=== PATIENT | male | born 1970 | race Caucasian/White ===

== ENCOUNTER 2017-04-26 03:39 | Emergency (ER) | payer MEDICAID, SELFPAY ==
[2017-04-26 03:40] VITALS: BP 135/88; PULSE 124; RESP 15; TEMP 36.2; O2SAT 95; BMI 29.9
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
[2017-04-26] MEDS: 0.9% Normal Saline 1,000 ML 1000 ML IV (04:14)
[2017-04-26] MEDS: Ketorolac 30 MG/ML Syringe IV (04:15)
[2017-04-26 04:35] LABS: Bacteria 0 SEEN /hpf (None Seen); Mucous, Urine 0 SEEN /hpf (<or=2+); White Blood Cells 0 SEEN /hpf (0-5)
[2017-04-26 04:39] LABS: Color, Urine Yellow (Yellow); Glucose, Dipstick Normal (Normal); Ketone-Dipstick Negative (Negative); Leukocyte Esterase-Dipstick Negative /ul (Negative); Nitrite-Dipstick Negative (Negative); Occult Blood-Urine 10 /ul (Negative); Protein-Dipstick Negative (Negative); Specific Gravity, Urine 1.015 (1.002-1.030); Urine Bilirubin Dipstick Negative (Negative); Urine Clarity Clear (Clear); Urine Urobilinogen Normal (Normal)
[2017-04-26 04:54] LABS: Red Blood Cells-Urine 0-5 SEEN /hpf (0-5); Squamous Epithelial Cells - UA 0-5 SEEN /hpf (0-5)
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
[2017-04-26 05:27] VITALS: BP 117/67; PULSE 57; RESP 16; O2SAT 98
== END 2017-04-26 05:29 | disposition home or self-care (01) ==
PROVIDERS: Emergency Provider Emergency Medicine; Family Provider Family Medicine; PCP Family Medicine
DX: S39.012A Strain of muscle, fascia and tendon of lower back, initial encounter (principal); M54.2 Cervicalgia; W13.2XXA Fall from, out of or through roof, initial encounter; Y93.89 Activity, other specified; Y92.9 Unspecified place or not applicable; Y99.9 Unspecified external cause status; J45.909 Unspecified asthma, uncomplicated; F32.9 Major depressive disorder, single episode, unspecified; F41.9 Anxiety disorder, unspecified; Z72.0 Tobacco use; Z79.899 Other long term (current) drug therapy; Z86.19 Personal history of other infectious and parasitic diseases
CPT/HCPCS: 74176; 81001; 96361; 96374; 99284; J7030; Q9967

== ENCOUNTER 2017-06-17 21:21 | Emergency (ER) | payer MEDICAID, SELFPAY ==
[2017-06-17 21:22] VITALS: BP 138/71; PULSE 129; RESP 14; TEMP 36.8; O2SAT 98; BMI 29.9
--- NOTE | 2017-06-17 21:27 | RAD_ITS ---
STUDY: X-RAY - RIGHT HAND REASON FOR EXAM: Male, 47 years old. Pain, swelling TECHNIQUE: 3 view(s) of the hand. COMPARISON: X-ray 04/01/2017 FINDINGS: There is nondisplaced fracture at the proximal aspect of the fifth metacarpal. There is slight volar angulation. Suggestion of chronic fracture deformity at the fifth metacarpal neck. There is resection of the scaphoid. Normal radiocarpal articulation. Normal distal radioulnar joint. Normal metacarpophalangeal joint of the thumb. Normal interphalangeal joint of the thumb. Normal proximal and distal phalanges of the thumb. Normal metacarpophalangeal joints of the second through fifth fingers. Normal proximal and distal interphalangeal joints of the second through fifth fingers. Normal phalanges of the second through fifth fingers. The soft tissue structures are unremarkable. RAD/Hand Min 3 Views IMPRESSION: Acute nondisplaced fracture at the proximal aspect of the fifth metacarpal with slight volar angulation Electronically Signed: Avinash Horner MD at 22:10 EDT Tel , Service support ,
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
[2017-06-17] MEDS: HYDROcodone Bitartrate/Apap 5/325 Tablet PO ×2 (22:34)
[2017-06-17 22:36] VITALS: PULSE 87; RESP 18; O2SAT 97
== END 2017-06-17 23:01 | disposition home or self-care (01) ==
PROVIDERS: Emergency Provider Emergency Medicine; Family Provider Family Medicine; PCP Family Medicine
DX: S62.396A Other fracture of fifth metacarpal bone, right hand, initial encounter for closed fracture (principal); W22.09XA Striking against other stationary object, initial encounter; Y93.89 Activity, other specified; Y92.9 Unspecified place or not applicable; J44.9 Chronic obstructive pulmonary disease, unspecified; K21.9 Gastro-esophageal reflux disease without esophagitis; Z86.19 Personal history of other infectious and parasitic diseases; Z79.899 Other long term (current) drug therapy; F41.9 Anxiety disorder, unspecified; F32.9 Major depressive disorder, single episode, unspecified; Z72.0 Tobacco use
CPT/HCPCS: 29130; 73130; 99283

== ENCOUNTER 2017-06-21 12:02 | Emergency (ER) | payer MEDICAID, SELFPAY ==
[2017-06-21 12:04] VITALS: BP 156/54; PULSE 115; RESP 18; TEMP 36.2; O2SAT 94; BMI 29.9
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
[2017-06-21] MEDS: Naproxen 250 MG Tablet 500 MG PO (12:37)
== END 2017-06-21 12:40 | disposition home or self-care (01) ==
LOC: ED 12:36
PROVIDERS: Emergency Provider Emergency Medicine; Family Provider Family Medicine; PCP Family Medicine
DX: S62.306A Unspecified fracture of fifth metacarpal bone, right hand, initial encounter for closed fracture (principal); Y04.2XXA Assault by strike against or bumped into by another person, initial encounter; Y93.9 Activity, unspecified; Y92.9 Unspecified place or not applicable; Y99.9 Unspecified external cause status; Z72.0 Tobacco use; Z79.899 Other long term (current) drug therapy; Z91.19 Patient's noncompliance with other medical treatment and regimen
CPT/HCPCS: 99283

== ENCOUNTER 2017-07-08 21:01 | Emergency (ER) | payer MEDICAID, SELFPAY ==
[2017-07-08 21:02] VITALS: BP 135/62; PULSE 100; RESP 14; TEMP 36.5; O2SAT 100; BMI 29.0
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
[2017-07-08] MEDS: HYDROcodone Bitartrate/Apap 5/325 Tablet PO (22:29)
--- NOTE | 2017-07-08 23:12 | ED.DEP ---
ED Disposition - Plan for ED Patient: Chief Complaint: Back Instructions: ED Contusion Back Referrals: Hayes Deluna MD [Primary Care Provider] -
== END 2017-07-08 23:19 | disposition home or self-care (01) ==
PROVIDERS: Emergency Provider Emergency Medicine; Family Provider Family Medicine; PCP Family Medicine
DX: M54.9 Dorsalgia, unspecified (principal); J44.9 Chronic obstructive pulmonary disease, unspecified; Z72.0 Tobacco use; Z87.820 Personal history of traumatic brain injury
CPT/HCPCS: 71101; 99284

== ENCOUNTER 2017-08-04 11:14 | Emergency (ER) | payer MEDICAID, SELFPAY ==
[2017-08-04 11:15] VITALS: BP 149/107; PULSE 61; RESP 14; TEMP 35.8; O2SAT 97; BMI 26.6
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
[2017-08-04 11:56] LABS: Absolute Lymphocyte Count 1.19 X10^3/ul (0.83-4.51); Absolute Neutrophil Count 5.4 X10^3/uL (2.0-7.7); Basophil# 0.02 X10^3/uL; Basophil% 0.3 % (0-1); Eosinophil# 0.13 X10^3/uL; Eosinophils% 1.8 % (0-5); Hematocrit 45.3 % (40-54); Hemoglobin 14.8 g/dl (13.0-16.5); Lymphocyte # 1.19 X10^3/ul (4.0); Lymphocyte % 16.2 % (19-41); Mean Corp Hgb Conc 32.7 g/gl (32-36); Mean Corpuscular Hgb 31.5 pg (27.0-32.0); Mean Corpuscular Volume 96.4 fL (80-94); Mean Platelet Vol. 9.6 fl (6.2-12.0); Monocyte# 0.57 X10^3/uL; Monocyte% 7.8 % (0-10); Neutrophil # 5.42 X10^3/uL (2.7-7.7); Neutrophil % 73.6 % (47-70); Platelet Count 224 K/mm3 (150-450); RBC Distribution Width SD 45.9 fl (35.1-43.9); White Blood Count 7.4 K/mm3 (4.4-11.0)
[2017-08-04 12:01] LABS: POSITIVE COUNT NO; POSITIVE DIFFERENTIAL NO; POSITIVE MORPHOLOGY NO
[2017-08-04] MEDS: 0.9% Normal Saline 1,000 ML 1000 ML IV (12:05)
[2017-08-04] MEDS: proMETHazine 25 MG/ML Syringe 12.5 MG IV (12:05)
[2017-08-04] MEDS: Dicyclomine 20 MG/2 ML Vial IM (12:05)
[2017-08-04 12:08] LABS: AST(SGOT) 28 U/L (15-37); Alanine Aminotransfer ALT/SGPT 31 U/L (16-61); Albumin, Serum 3.4 g/dL (3.2-5.0); Alkaline Phosphatase 94 U/L (45-117); Anion Gap 8 (5-15); BUN 7 mg/dL (7-18); BUN/Creat Ratio 6.9 RATIO (10-20); Chloride 105 mmol/L (98-107); Creatinine, Serum 1.02 mg/dL (0.70-1.30); EST Glomerular Filtration Rate 83 mL/min (>60); Est Glom Filt Rate - Afr Amer 101 mL/min (>60); Estimated Creatinine Clearance 101.18 ml/min; Globulin 3.4 g/dL (2.2-4.2); Glucose 124 mg/dL (74-106); Lipase 106 U/L (73-393); Potassium 3.6 mmol/L (3.5-5.1); Protein, Total 6.8 g/dL (6.4-8.2); Sodium Level 139 mmol/L (136-145)
--- NOTE | 2017-08-04 12:40 | ED.DEP ---
ED Disposition - Plan for ED Patient: Disposition: Home or Assisted Living Chief Complaint: Nausea/Vomiting Instructions: ED Nausea Vomiting Prescriptions: proMETHazine tablet [Phenergan] 25 mg PO Q6H PRN PRN #10 tab PRN Reason: Nausea Dicyclomine HCl [Bentyl] 20 mg PO TIDAC #20 cap Referrals: Hayes Deluna MD [Primary Care Provider] -
[2017-08-04] MEDS: Ondansetron 4 MG/2 ML Vial IV (13:52)
[2017-08-04] MEDS: Acetaminophen 500 MG Tablet 1000 MG PO (13:52)
== END 2017-08-04 14:04 | disposition home or self-care (01) ==
PROVIDERS: Emergency Provider Emergency Medicine; Family Provider Family Medicine; PCP Family Medicine
DX: R11.2 Nausea with vomiting, unspecified (principal); R10.9 Unspecified abdominal pain; J44.9 Chronic obstructive pulmonary disease, unspecified; Z72.0 Tobacco use
CPT/HCPCS: 80053; 83690; 85025; 96361; 96372; 96374; 96375; 99285; J7030; A4216; J2405

== ENCOUNTER 2018-09-03 09:49 | Emergency (ER) | payer MEDICAID, SELFPAY ==
[2018-02-17 16:27] VITALS: BMI 30.3
[2018-09-03 09:50] VITALS: BP 100/63; PULSE 109; RESP 18; TEMP 36.4; O2SAT 96; BMI 27.8
--- NOTE | 2018-09-03 10:13 | ED.VISSUMM ---
- ER Visit Summary Date of Service: 09/03/18 Chief Complaint: Nausea and vomiting History of Present Illness: The patient is a 48 M who presents with nausea and vomiting for the past 5 days. Patient states he is coming off heroin and is having a lot of nausea and vomiting. Patient states that sometimes he has coffee-ground emesis. Patient denies any melena or hematochezia. Patient describes his pain is sharp and aching. Patient states his pain is diffuse across his abdomen. Patient states nothing makes it better or worse. Patient denies any urinary complaints. Patient denies any chest pain or shortness of breath. Physical Examination: Vital signs are stable. Patient is afebrile. Patient is in no acute distress. Oral mucosa is pink and moist. Neck is supple. Trachea is midline. There is no JVD noted. Heart was regular and mildly tachycardic. Lungs are clear and equal bilaterally. Abdomen is soft. Bowel sounds are normal. There is mild diffuse tenderness. There is no rebound or guarding noted. There is no distention. Cranial nerves II through XII are intact. There are no focal motor or sensory deficits noted. Test Results: CBC was normal. Basic metabolic profile showed a potassium of 2.7. Chloride was slightly low at 89, and sodium was slightly low at 134. Lipase was slightly elevated at 711. CT scan of the abdomen and pelvis was obtained. There is no acute intra-abdominal pathology. Emergency Department Course and Treatment: Patient was given IV fluids and Zofran here. Patient was given oral and IV potassium. Patient was feeling better on reevaluation. Patient was given a prescription for Zofran. Patient was instructed to follow-up with his primary care physician in 5 to 7 days. Patient was also given information for 180. Patient understood and was agreeable with the plan. All questions were answered. Disposition: Discharge home Impression: Nausea and vomiting This note was generated with [employer] dictation software. It may contain incorrect words, spelling, and punctuation that were not noted in review of the chart prior to signing ED Disposition - Plan for ED Patient: Disposition: Home or Assisted Living Diagnosis: Nausea and vomiting Instructions: ED Withdrawal Narcotic, ED Nausea Vomiting Prescriptions: Ondansetron [Zofran Odt] 4 mg PO Q8H PRN PRN #10 tab PRN Reason: Nausea Referrals: Hayes Deluna MD [Primary Care Provider] - 5-7 Days
[2018-09-03] MEDS: Ondansetron 4 MG/2 ML Vial IV (10:50)
[2018-09-03] MEDS: 0.9% Normal Saline 1,000 ML 1000 ML IV (10:50)
[2018-09-03 10:54] VITALS: RESP 17
[2018-09-03 11:05] LABS: Absolute Lymphocyte Count 1.55 X10^3/ul (0.83-4.51); Absolute Neutrophil Count 6.5 X10^3/uL (2.0-7.7); Basophil# 0.03 X10^3/uL; Basophil% 0.3 % (0-1); Eosinophil# 0.02 X10^3/uL; Eosinophils% 0.2 % (0-5); Hematocrit 52.7 % (40-54); Hemoglobin 17.9 g/dl (13.0-16.5); Lymphocyte # 1.55 X10^3/ul (4.0); Lymphocyte % 16.4 % (19-41); Mean Corpuscular Hgb 30.7 pg (27.0-32.0); Mean Corpuscular Volume 90.2 fL (80-94); Mean Platelet Vol. 9.4 fl (6.2-12.0); Monocyte# 1.22 X10^3/uL; Monocyte% 12.9 % (0-10); Neutrophil # 6.53 X10^3/uL (2.7-7.7); Neutrophil % 69.4 % (47-70); Platelet Count 269 K/mm3 (150-450); RBC Distribution Width CV 13.2 % (11.6-14.6); RBC Distribution Width SD 43.9 fl (35.1-43.9); Red Blood Count 5.84 M/mm3 (4.6-6.2); White Blood Count 9.4 K/mm3 (4.4-11.0)
[2018-09-03 11:08] LABS: POSITIVE COUNT NO; POSITIVE DIFFERENTIAL NO; POSITIVE MORPHOLOGY NO
[2018-09-03] MEDS: Pantoprazole Sodium 40 MG Tablet PO (11:14)
[2018-09-03 11:25] LABS: AST(SGOT) 16 U/L (15-37); Alanine Aminotransfer ALT/SGPT 27 U/L (16-61); Albumin, Serum 3.9 g/dL (3.2-5.0); Alkaline Phosphatase 87 U/L (45-117); Anion Gap 9 (5-15); BUN 18 mg/dL (7-18); BUN/Creat Ratio 15.3 RATIO (10-20); Calcium,Total 10.4 mg/dL (8.5-10.1); Chloride 89 mmol/L (98-107); Creatinine, Serum 1.18 mg/dL (0.70-1.30); EST Glomerular Filtration Rate 70 mL/min (>60); Est Glom Filt Rate - Afr Amer 85 mL/min (>60); Estimated Creatinine Clearance 81.54 ml/min; Globulin 4.1 g/dL (2.2-4.2); Glucose 96 mg/dL (74-106); Lipase 711 U/L (73-393); Potassium 2.7 mmol/L (3.5-5.1); Sodium Level 134 mmol/L (136-145)
--- NOTE | 2018-09-03 12:06 | CT_ITS ---
STUDY: CT ABDOMEN AND PELVIS WITHOUT CONTRAST REASON FOR EXAM: Male, 48 years old. Nausea and vomiting RADIATION DOSAGE (If Supplied By Facility): CTDIvol = ( 9.80 ) mGy, DLP = ( 484.97 ) mGycm TECHNIQUE: Transaxial images were obtained from the dome of the diaphragm to the symphysis pubis without oral contrast, and without intravenous contrast. Sagittal and coronal images were reconstructed. Individualized dose optimization techniques were used for this CT. COMPARISON: CT abdomen and pelvis 04/26/2017. FINDINGS: Lack of intravenous contrast limits evaluation of abdominal and pelvic organs. The visualized lung bases are unremarkable. The visualized portions of the heart are within normal limits. Normal liver. There are surgical clips in the gallbladder fossa consistent with a prior cholecystectomy. Normal spleen. Normal pancreas. Normal bilateral adrenal glands. Normal right kidney. There are nonobstructing left renal lower pole stones. No hydronephrosis Normal visualized stomach. Normal small intestine. Normal colon. The appendix is visualized and appears normal. There is aortobiiliac atherosclerotic disease. Normal inferior vena cava. Normal retroperitoneum. Normal urinary bladder. Normal abdominal wall. There is mild bilateral hip arthrosis CT/Abdomen/Pelvis without Cont IMPRESSION: No acute abdominal or pelvic pathology. Electronically Signed: Roshni Jorge, at 12:43 EDT Tel , Service support ,
[2018-09-03] MEDS: Mag Hydrox/Al Hydrox/Simeth 30 ML UDC PO (12:49)
[2018-09-03] MEDS: Potassium Chloride 10mEq/100mL 10 MEQ/100 ML IV.SOLN. 100 MEQ IV BOLUS (12:49)
[2018-09-03 14:37] VITALS: BP 146/87; PULSE 97; RESP 16; RESP 18
== END 2018-09-03 14:39 | disposition home or self-care (01) ==
PROVIDERS: Emergency Provider Emergency Medicine; Family Provider Family Medicine; PCP Family Medicine
DX: R11.2 Nausea with vomiting, unspecified (principal); E87.6 Hypokalemia; R79.89 Other specified abnormal findings of blood chemistry; K21.9 Gastro-esophageal reflux disease without esophagitis; Z72.0 Tobacco use
CPT/HCPCS: 74176; 80053; 83690; 85025; 96361; 96365; 96366; 96375; 99284; J7030; A4216; J2405

== ENCOUNTER 2018-09-05 12:32 | Emergency (ER) | payer MEDICAID, SELFPAY ==
[2018-09-05 12:32] VITALS: BP 116/83; PULSE 117; RESP 18; TEMP 36.7; O2SAT 97; BMI 27.8
[2018-09-05 13:55] VITALS: RESP 18
[2018-09-05] MEDS: Morphine 4 MG/ML Syringe IV ×2 (14:01→15:53)
[2018-09-05] MEDS: Ondansetron 4 MG/2 ML Vial IV (14:01)
[2018-09-05] MEDS: 0.9% Normal Saline 1,000 ML 1000 ML IV (14:02)
[2018-09-05 14:11] LABS: Absolute Lymphocyte Count 0.66 X10^3/ul (0.83-4.51); Absolute Neutrophil Count 3.3 X10^3/uL (2.0-7.7); Basophil# 0.02 X10^3/uL; Basophil% 0.4 % (0-1); Eosinophil# 0.02 X10^3/uL; Eosinophils% 0.4 % (0-5); Hematocrit 44.7 % (40-54); Hemoglobin 15.4 g/dl (13.0-16.5); Lymphocyte # 0.66 X10^3/ul (4.0); Mean Corp Hgb Conc 34.5 g/gl (32-36); Mean Corpuscular Hgb 31.8 pg (27.0-32.0); Mean Corpuscular Volume 92.2 fL (80-94); Mean Platelet Vol. 9.3 fl (6.2-12.0); Monocyte# 1.02 X10^3/uL; Monocyte% 20.1 % (0-10); Neutrophil # 3.33 X10^3/uL (2.7-7.7); Neutrophil % 65.5 % (47-70); Platelet Count 180 K/mm3 (150-450); RBC Distribution Width CV 13.1 % (11.6-14.6); RBC Distribution Width SD 44.1 fl (35.1-43.9); Red Blood Count 4.85 M/mm3 (4.6-6.2); White Blood Count 5.1 K/mm3 (4.4-11.0)
[2018-09-05 14:15] LABS: POSITIVE COUNT NO; POSITIVE DIFFERENTIAL NO; POSITIVE MORPHOLOGY NO
[2018-09-05 14:48] LABS: AST(SGOT) 13 U/L (15-37); Alanine Aminotransfer ALT/SGPT 21 U/L (16-61); Albumin, Serum 3.5 g/dL (3.2-5.0); Alkaline Phosphatase 77 U/L (45-117); Anion Gap 6 (5-15); BUN 11 mg/dL (7-18); BUN/Creat Ratio 9.2 RATIO (10-20); Bilirubin, Direct 0.12 mg/dL (0.00-0.30); Calcium,Total 8.9 mg/dL (8.5-10.1); Chloride 96 mmol/L (98-107); EST Glomerular Filtration Rate 69 mL/min (>60); Est Glom Filt Rate - Afr Amer 83 mL/min (>60); Estimated Creatinine Clearance 80.18 ml/min; Globulin 3.6 g/dL (2.2-4.2); Glucose 101 mg/dL (74-106); Lipase 734 U/L (73-393); Protein, Total 7.1 g/dL (6.4-8.2); Sodium Level 134 mmol/L (136-145)
[2018-09-05] MEDS: Pantoprazole Sodium 40 MG Tablet PO (14:57)
--- NOTE | 2018-09-05 15:38 | ED.VISSUMM ---
- ER Visit Summary Date of Service: 09/05/18 Chief Complaint: Abdominal pain History of Present Illness: The patient is a 48 M who was seen in the ED 2 days ago for nausea, vomiting, abdominal pain. His CT was unremarkable. His lipase was 711 and his potassium was 2.7. He was given potassium is well as a prescription for Zofran and he is a prescription for Protonix at the pharmacy. Patient states he is unable to afford these medications and cannot get them filled. He presents with continued epigastric pain and nausea with vomiting. He was lying on his right side last night and coughed and now has pain along the left lower ribs and left upper abdomen. Physical Examination: Vital signs significant for heart rate of 117. Head neck examination unremarkable. Heart is tachycardic and regular. Lung sounds are clear. Abdomen is soft with tenderness in the epigastric region as well as left upper quadrant. No guarding or rebound. No palpable hernias. Hypoactive bowel sounds are noted. Test Results: CBC is normal. Chemistry studies reveal potassium of 3.0. LFTs normal. Lipase is 734. Emergency Department Course and Treatment: Patient was given morphine, Zofran, and IV fluids. He was given p.o. Protonix. On repeat evaluation patient is resting comfortably. I discussed potential for hospital admission and that his lipase is continued to climb and his potassium has not significantly improved. This combined with the fact that he cannot afford his medication has been concerned. At this time patient is declining admission stating he is got a lot going on at home right now and cannot stay. He was warned about potential cardiac effects if his potassium gets too low. He is also warned about worsening pancreatitis. He voices understanding and agreement. He will be given p.o. potassium here and given a prescription. He is given a prescription savings card to try to help with his prescriptions. Treatment Plan: [] Disposition: Discharge Impression: 1. Abdominal pain 2. Vomiting, improved 3. Elevated lipase 4. Hypokalemia This note was generated with [employer] dictation software. It may contain incorrect words, spelling, and punctuation that were not noted in review of the chart prior to signing ED Disposition - Plan for ED Patient: Disposition: Home or Assisted Living Instructions: ED Potassium Deficiency, ED Pancreatitis Prescriptions: Potassium Chloride [K-Dur] 20 meq PO BID #14 tablet Referrals: Hayes Deluna MD [Primary Care Provider] - As soon as possible
[2018-09-05 16:02] VITALS: RESP 18; O2SAT 95
[2018-09-05 16:18] VITALS: RESP 18; O2SAT 95
== END 2018-09-05 16:19 | disposition home or self-care (01) ==
PROVIDERS: Emergency Provider Emergency Medicine; Family Provider Family Medicine; PCP Family Medicine
DX: R10.13 Epigastric pain (principal); R10.12 Left upper quadrant pain; E87.6 Hypokalemia; R74.8 Abnormal levels of other serum enzymes; R11.2 Nausea with vomiting, unspecified; J44.9 Chronic obstructive pulmonary disease, unspecified; K21.9 Gastro-esophageal reflux disease without esophagitis; Z72.0 Tobacco use; Z86.19 Personal history of other infectious and parasitic diseases
CPT/HCPCS: 80048; 80076; 83690; 85025; 96361; 96374; 96375; 96376; 99284; J7030; A4216; J2405

== ENCOUNTER 2018-09-07 07:49 | Emergency (ER) | payer MEDICAID, SELFPAY ==
[2018-09-07 07:49] VITALS: BP 151/80; PULSE 99; RESP 16; TEMP 36.8; O2SAT 99; BMI 27.1
--- NOTE | 2018-09-07 08:12 | ED.DCSUM_ITS ---
- ER Visit Summary Date of Service: 09/07/18 Chief Complaint: Abdominal pain History of Present Illness: The patient is a 48 M with epigastric abdominal pain for the past 5 days with nausea and vomiting. Patient states he was unable to get the prescriptions filled that he was given on prior ED visits. He was seen here both on September 03 and the for the similar. Lipase values on those visits were 711 and 734. He was also hypokalemic. Patient refused hospital admission on his last visit. He states he is continued to have nausea and vomiting. He has had subjective fever and chills. Past history significant for asthma, COPD, reflux disease, hepatitis C, prior cholecystectomy. Physical Examination: Vital signs grossly unremarkable. Patient lying prone on the bed. Heart is regular rate and rhythm. Lung sounds clear. Abdomen is soft with mild diffuse tenderness, worse in the suprapubic region. There is no guarding or rebound. Active bowel sounds are noted. Test Results: CBC and chemistry studies significant for potassium 3.3. On last visit his potassium was 3.0. LFTs and lipase are now normal. Urinalysis shows no ketones and no infection. Emergency Department Course and Treatment: Patient initially received morphine, Zofran, and IV fluids. Due to continued pain he did receive 1 dose of IV Dilaudid. We attempted to get his prescriptions for him, but patient reportedly has let his care source lapse. Social work offered to help him fill the paperwork to get this reinstated and he refused. At this time patient does not meet any requirements for hospitalization. He will be discharged. He has prescriptions at home that he can get filled when able. Treatment Plan: [] Disposition: Discharge Impression: 1. Abdominal pain 2. Hypokalemia, improving This note was generated with [employer] dictation software. It may contain incorrect words, spelling, and punctuation that were not noted in review of the chart prior to signing ED Disposition - Plan for ED Patient: Disposition: Home or Assisted Living Instructions: ED Abdominal Pain Unkn Cause Male Referrals: Hayes Deluna MD [Primary Care Provider] - As soon as possible
[2018-09-07] MEDS: Ondansetron 4 MG/2 ML Vial IV (08:37)
[2018-09-07] MEDS: 0.9% Normal Saline 1,000 ML 1000 ML IV (08:37)
[2018-09-07] MEDS: Morphine 4 MG/ML Syringe IV (08:37)
[2018-09-07 08:47] LABS: Bacteria 0 SEEN /hpf (None Seen); Mucous, Urine 0 SEEN /hpf (<or=2+); Squamous Epithelial Cells - UA 0 SEEN /hpf (0-5); White Blood Cells 0 SEEN /hpf (0-5)
[2018-09-07 08:51] LABS: Color, Urine Yellow (Yellow); Glucose, Dipstick Normal (Normal); Ketone-Dipstick Negative (Negative); Leukocyte Esterase-Dipstick Negative /ul (Negative); Nitrite-Dipstick Negative (Negative); Occult Blood-Urine 50 /ul (Negative); Protein-Dipstick Negative (Negative); Urine Bilirubin Dipstick Negative (Negative); Urine Clarity Sl. Cloudy (Clear); Urine Urobilinogen Normal (Normal)
[2018-09-07 08:56] LABS: Red Blood Cells-Urine 0-5 SEEN /hpf (0-5)
[2018-09-07] MEDS: 0.9% Normal Saline 1,000 ML 150 ML IV (09:59)
[2018-09-07 10:58] LABS: Absolute Lymphocyte Count 0.57 X10^3/ul (0.83-4.51); Absolute Neutrophil Count 3.4 X10^3/uL (2.0-7.7); Basophil# 0.05 X10^3/uL; Basophil% 1.1 % (0-1); Eosinophil# 0.05 X10^3/uL; Eosinophils% 1.1 % (0-5); Hematocrit 41.7 % (40-54); Hemoglobin 14.1 g/dl (13.0-16.5); Lymphocyte # 0.57 X10^3/ul (4.0); Lymphocyte % 12.5 % (19-41); Mean Corp Hgb Conc 33.8 g/gl (32-36); Mean Corpuscular Hgb 31.2 pg (27.0-32.0); Mean Corpuscular Volume 92.3 fL (80-94); Mean Platelet Vol. 8.9 fl (6.2-12.0); Monocyte# 0.44 X10^3/uL; Monocyte% 9.6 % (0-10); Neutrophil # 3.42 X10^3/uL (2.7-7.7); Platelet Count 154 K/mm3 (150-450); RBC Distribution Width CV 13.1 % (11.6-14.6); RBC Distribution Width SD 44.1 fl (35.1-43.9); Red Blood Count 4.52 M/mm3 (4.6-6.2); White Blood Count 4.6 K/mm3 (4.4-11.0)
[2018-09-07 11:00] LABS: Differential Indicated SCAN CRITERIA MET; POSITIVE COUNT NO; POSITIVE DIFFERENTIAL YES; POSITIVE MORPHOLOGY NO
[2018-09-07 11:12] LABS: AST(SGOT) 20 U/L (15-37); Alanine Aminotransfer ALT/SGPT 38 U/L (16-61); Albumin, Serum 3.4 g/dL (3.2-5.0); Alkaline Phosphatase 88 U/L (45-117); Anion Gap 6 (5-15); BUN 7 mg/dL (7-18); BUN/Creat Ratio 6.8 RATIO (10-20); Bilirubin, Direct 0.15 mg/dL (0.00-0.30); Calcium,Total 8.6 mg/dL (8.5-10.1); Chloride 103 mmol/L (98-107); Creatinine, Serum 1.03 mg/dL (0.70-1.30); EST Glomerular Filtration Rate 82 mL/min (>60); Est Glom Filt Rate - Afr Amer 99 mL/min (>60); Estimated Creatinine Clearance 93.41 ml/min; Globulin 3.7 g/dL (2.2-4.2); Glucose 110 mg/dL (74-106); Lipase 118 U/L (73-393); Potassium 3.3 mmol/L (3.5-5.1); Protein, Total 7.1 g/dL (6.4-8.2); Sodium Level 138 mmol/L (136-145)
[2018-09-07] MEDS: HYDROmorphone 0.5 MG/0.5 ML SYRINGE IV (11:14)
--- NOTE | 2018-09-07 11:55 | CM.ED ---
SOCIAL WORK INFORMANT: DR. ALBERTO REASON FOR REFERRAL: RX ASSIST MET WITH PATIENT IN ROOM. PATIENT STATES NO LONGER HAS INSURANCE THROUGH [employer]. DISCUSSED RE-APPLYING FOR MEDICAID. PATIENT STATES I HAVE HAD NO TIME. PATIENT PROVIDED WITH THE MEDICAID SHARED SERVICE PHONE NUMBER AND INFORMATION ON PEOPLE TO PEOPLE. OFFERED ASSISTANCE WITH CONNECTING PATIENT WITH SERVICES FOR DETOX FROM [facility]. PATIENT STATES, I'LL DO IT ON MY OWN. UPDATED DR. ALBERTO ON THE ABOVE. JEFFERSON KRAUS, SURGEON PARTNER, CIVIL ENGINEERING DIRECTOR.
[2018-09-07 12:33] VITALS: BP 154/98; PULSE 83; RESP 17; O2SAT 99
== END 2018-09-07 12:34 | disposition home or self-care (01) ==
PROVIDERS: Emergency Provider Emergency Medicine; Family Provider Family Medicine; PCP Family Medicine
DX: R10.13 Epigastric pain (principal); E87.6 Hypokalemia; R11.2 Nausea with vomiting, unspecified; J44.9 Chronic obstructive pulmonary disease, unspecified; K21.9 Gastro-esophageal reflux disease without esophagitis; Z72.0 Tobacco use; Z86.19 Personal history of other infectious and parasitic diseases
CPT/HCPCS: 80048; 80076; 81001; 83690; 85025; 96361; 96374; 96375; 99285; J7030; A4216; J2405

== ENCOUNTER 2019-01-25 10:22 | Emergency (ER) | payer MEDICAID, SELFPAY ==
[2019-01-25 10:23] VITALS: BP 138/93; PULSE 119; RESP 17; TEMP 36.2; O2SAT 100; BMI 27.1
--- NOTE | 2019-01-25 10:52 | ED.VIS.GEN ---
History of Present Illness Chief Complaint: Numb/Ting Informant: Patient, Family Onset: Month(s) Current Severity: Mild Narrative: Patient complains of sided paracervical pain that radiates into his right shoulder that is had for years, he also has intermittent pain to the right back that radiates down his right leg, he has history of pancreatitis history of orthopedic complaints prior wrist surgery, he has been seen for these conditions by orthopedic surgeons in [place] and also [facility] he does not recall what specific therapies were recommended, indicates he was off work related to episodes of pancreatitis he had a recurrence of these painful areas right neck right back to where he felt he had to come to the emergency department to receive something for pain so he go to work as he cannot miss work indicating he needs to get paid. He does report he slid and fell yesterday but does not believe he injured himself anyway, he denies numbness weakness paresthesias bowel or bladder complaints he denies any loss of function, the right upper neck arm numbness sensation he is had for many years and again intermittently he has pain in his back Past Medical History - Allergies and Home Meds Allergies/Adverse Reactions: Allergies NSAIDS (Non-Steroidal Anti-Inflamma Adverse Reaction (Verified 01/25/19 10:22) Nausea Primary Care Physician: Hayes Deluna MD [Primary Care Provider] - Past Medical History: - Surgical History: - - Unknown, patient is intubated at the time of my exam. Smoking Status: Current every day smoker - Family History Maternal Family History: Reports: - - Could not obtain, patient is intubated Review of Systems ROS: - As above General: Reports: - - Ends of a right paracervical neck pain rating to her shoulder right, and a right paralumbar pain rating to his buttock. Denies: Chills, Fever, Sweats Eyes: Denies: Visual changes - bilaterally, Diplopia ENT: Denies: Rhinorrhea, Sore throat Cardiovascular: Denies: Chest pain, Palpitations Respiratory: Denies: Dyspnea, Cough, Dyspnea on exertion Gastrointestinal: Denies: Abdominal pain, Nausea, Vomiting, Diarrhea, Melena, Hematochezia Genitourinary: Denies: Dysuria, Hematuria, Frequency Musculoskeletal: Denies: Back pain, Extremity Pain Skin: Denies: Rash, Wounds Neurological: Denies: Headache, Weakness, Numbness Physical Exam Vital Signs/Narrative: Vital Signs Temp Pulse Resp BP Pulse Ox 01/25/19 10:23 97.1 F L 119 H 17 138/93 H 100 General: Well nourished, Well developed, No Acute Distress Head: Normocephalic, Atraumatic Eyes: Perrl, EOMI ENT: Moist mucous membranes, No rhinorrhea Neck: Supple, Nontender Cardiovascular: Regular rate, Regular rhythm, No murmurs Respiratory: No distress, CTA bilaterally, Chest nontender Abdomen: Soft, Nontender, Nondistended, Normal bowel sounds Back: Nontender, Normal Inspection Extremities: Nontender, No edema Skin: Normal color, No rash Neurological: Alert, Oriented x3, Cranial nerves II-XII grossly intact, Normal Strength, Normal Sensation Psychological: Normal affect, Normal Mood Diagnostic/Tx/Re-eval - Medical Decision Making he is physical exam is unremarkable he has full range of motion of his neck he has full range of motion normal strength of the upper lower extremities, he is able to stand and walk, he can heel raise toe raise knee bend with no weakness he denies any bowel or bladder complaints or perineal anesthesia Not allergic to nonsteroidals he is able to take Naprosyn on occasion not source of cause stomach upset he took a Naprosyn tablet the other day, I discussed with his family and patient the options for therapy we discussed x-rays but he declined all x-rays, simply wanting something for pain I explained we normally would treat all the above with nonsteroidals we reviewed his allergy list he again is not allergic reporting only occasional stomach upset, he is treated with Toradol IM, who discharged on Naprosyn for 5 days with regards to ongoing therapy have explained to him he would require ongoing therapy by his outpatient providers and he indicates he is going to follow-up with his [facility] orthopedic surgeon who is seen in the past for the above and return for change in symptoms Home stable Impression final Acute recurrent right-sided cervical radiculopathy Acute recurrent right-sided lumbar strain with radicular symptoms ED Disposition - Plan for ED Patient: Diagnosis: Cervical radiculopathy Instructions: RADICULOPATHY, Cervical, Causes of Lumbar (Low Back) Pain Prescriptions: Naproxen [Naprosyn] 500 mg PO BID PRN #10 tab Prescription Printed Referrals: Hayes Deluna MD [Primary Care Provider] -
--- NOTE | 2019-01-25 11:10 | ED.RN ---
PT LAUGHING IN ROOM, PLAYING AROUND WITH FAMILY. PT REFUSED TORADOL STATES IT DOES NOTHING FOR ME. PT DEMANDING SOMETHING ELSE.
[2019-01-25 11:19] VITALS: RESP 14
== END 2019-01-25 11:20 | disposition home or self-care (01) ==
LOC: ED 11:01
PROVIDERS: Emergency Provider Emergency Medicine; Family Provider Family Medicine; PCP Family Medicine
DX: M54.12 Radiculopathy, cervical region (principal); F17.200 Nicotine dependence, unspecified, uncomplicated
CPT/HCPCS: 99282

== ENCOUNTER 2019-01-28 15:32 | Emergency (ER) | payer MEDICAID, SELFPAY ==
[2019-01-28 15:33] VITALS: BP 169/100; PULSE 118; RESP 17; TEMP 36.3; O2SAT 99; BMI 27.1
--- NOTE | 2019-01-28 15:49 | ED.DCSUM_ITS ---
- ER Visit Summary Date of Service: 01/28/19 Chief Complaint: Back pain History of Present Illness: The patient is a 49 M who presents with low back pain as well as upper back pain. Is been worse over the past 4 days. He coughed and this made his pain worse. The pain radiates from his neck down to his low back and down the right leg. He has been trying Tylenol and Motrin without any relief. Movement makes his pain worse. He denies any history of previous back surgeries but has had issues with his back in the past. Physical Examination: Vital signs are reviewed. Heart is regular rate and rhythm. Lungs are clear to auscultation. Abdomen is soft and nontender. His back is tender in the right lumbar region. Extremities have no edema. His neurologic exam including reflexes is normal Test Results: None performed Emergency Department Course and Treatment: Patient has no bony tenderness. I do not feel x-rays are needed. He will be given morphine and Norflex here. I will give him Flexeril and Neurontin for home. He will follow-up with his doctors Treatment Plan: [] Disposition: Discharge Impression: Acute on chronic low back pain This note was generated with [employer] dictation software. It may contain incorrect words, spelling, and punctuation that were not noted in review of the chart prior to signing ED Disposition - Plan for ED Patient: Referrals: Hayes Deluna MD [Primary Care Provider] -
--- NOTE | 2019-01-28 15:51 | ED.DEP ---
ED Disposition - Plan for ED Patient: Disposition: Home or Assisted Living Instructions: BACK PAIN (Acute or Chronic) Prescriptions: cycloBENZAPRine HCl [Flexeril] 10 mg PO TID PRN #20 tab PRN Reason: Muscle Spasm Prescription Printed Gabapentin [Neurontin] 100 mg PO TIDCM #20 cap Prescription Printed Referrals: Hayes Deluna MD [Primary Care Provider] -
[2019-01-28] MEDS: Morphine 4 MG/ML Syringe SC (16:01)
[2019-01-28] MEDS: Orphenadrine 60 MG/2 ML Ampul IM (16:01)
[2019-01-28 16:45] VITALS: BP 151/77; PULSE 106; RESP 18; O2SAT 96
== END 2019-01-28 16:47 | disposition home or self-care (01) ==
LOC: ED 16:12
PROVIDERS: Emergency Provider Emergency Medicine; Family Provider Family Medicine; PCP Family Medicine
DX: M54.6 Pain in thoracic spine (principal); M54.5 Low back pain; M54.2 Cervicalgia; G89.29 Other chronic pain; J44.9 Chronic obstructive pulmonary disease, unspecified; Z72.0 Tobacco use; Z79.899 Other long term (current) drug therapy
CPT/HCPCS: 99284

== ENCOUNTER 2019-02-01 12:30 | Emergency (ER) | payer MEDICAID, SELFPAY ==
[2019-02-01 12:31] VITALS: BP 129/88; PULSE 110; RESP 17; TEMP 36.8; O2SAT 98; BMI 26.4
--- NOTE | 2019-02-01 13:26 | ED.DCSUM_ITS ---
History of Present Illness Chief Complaint: Back Informant: Patient Onset: Days Context: Gradual Onset Timing: Continuous Quality: Sharp, Aching Location: Lumbar Current Severity: Severe Maximum Severity: Severe Worsened by: improves with: Movement, Bending Relieved by: Nothing Associated Symptoms: Radiation to Right Leg Narrative: patient is a 49-year-old male resenting with recurrent back pain. Patient was evaluated in the ER couple days ago for the same complaint. At that time he was diagnosed with sciatica. He states his back pain is persisted and he cannot walk more than 10 steps without crippling pain. He denies any injury or trauma. Patient states he is also concerned because he is living in a homeless retirement and they are threatening to kick him out if he can go to work however he cannot work with his pain. Patient states is been taking Naprosyn with no significant relief of his pain. The pain radiates down his right leg. Is worse with movement. He came to the ER and received a pain shot which chart review shows was morphine and Norflex. Patient states he has not improved since he was discharged home. He denies any associated incontinence, fever or saddle anesthesia. Denies any weakness or paresthesias of his legs. He denies any other complaints at this time. Past Medical History - Allergies and Home Meds Allergies/Adverse Reactions: Allergies NSAIDS (Non-Steroidal Anti-Inflamma Adverse Reaction (Verified 01/28/19 15:33) Nausea SEA FOOD Allergy (Uncoded 01/28/19 15:33) Anaphylaxis Primary Care Physician: Hayes Deluna MD [Primary Care Provider] - Past Medical History: - - low back pain Surgical History: - - Unknown, patient is intubated at the time of my exam. Smoking Status: Current every day smoker - Family History Maternal Family History: Reports: - - Could not obtain, patient is intubated Review of Systems All systems negative except as indicated Musculoskeletal: Reports: Back pain, Extremity Pain - right Physical Exam Vital Signs/Narrative: Vital Signs Temp Pulse Resp BP Pulse Ox 02/01/19 12:31 98.3 F 110 H 17 129/88 H 98 Inital Vital Signs reviewed: Yes General: Well nourished, Well developed Head: Normocephalic, Atraumatic Eyes: Perrl, EOMI ENT: Moist mucous membranes, No rhinorrhea, - - Edentulous Neck: Supple, Nontender Cardiovascular: Regular rate, Regular rhythm, No murmurs Respiratory: No distress, CTA bilaterally, Chest nontender Abdomen: Soft, Nontender, Nondistended, Normal bowel sounds Back: Normal Inspection, Paraspinal Tenderness - right , Negative SLR - Right. Negative for: Spinal tenderness, CVA tenderness Extremeties: Nontender, No edema Skin: Normal color, No rash Neuro: Alert, Oriented, Normal Strength, Normal Sensation, Normal DTR, Normal Gait Psychological: Normal affect Diagnostic/Tx/Re-eval X-Ray: LS SPine, Read by Radiologist, REYES, Disk Space Narrowing Clinical Impression(s) from Imaging Studies Lumbar Spine X-Ray 02/01/19 14:15 IMPRESSION: Degenerative changes of the spine, as detailed above. Straightening of the normal lumbar lordosis. Electronically Signed: Luis Felipe Amira, at 14:31 EST , Service support , - Medical Decision Making Patient is evaluated for continued low back pain. Physical exam is consistent with sciatica. He has a positive contralateral straight leg test. He does not have midline tenderness. Is not had any new trauma. 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 Patient is given a note limiting his use of lifting and manual labor to help with this. He is given IM dose of morphine as well as Kenalog. Patient is taking Flexeril and gabapentin at home as well as Naprosyn. On reevaluation patient is now lying in the bed with his girlfriend. His improvement of symptoms. He does request 1 more IM shot of morphine prior to discharge which is given. He has appointment to see PCP later this week and he is encouraged to keep it. He is given a refill for his Naprosyn. He seems to have enough gabapentin and Flexeril at home. Because of his history of IV drug use I do not feel comfortable giving him a prescription for an opioid at discharge. Patient is counseled on signs and symptoms requiring return to the emergency room. Patient verbalizes agreement and understand this plan. Patient discharged home in stable and improved condition. ED Disposition - Plan for ED Patient: Disposition: Home or Assisted Living Diagnosis: Low back pain with sciatica Instructions: BACK PAIN w/ SCIATICA Prescriptions: Naproxen [Naprosyn] 500 mg PO BID PRN PRN #20 tab PRN Reason: Pain Or Fever Prescription Printed Referrals: Hayes Deluna MD [Primary Care Provider] -
[2019-02-01] MEDS: Ibuprofen 600 MG Tablet PO (14:04)
[2019-02-01] MEDS: Morphine 4 MG/ML Syringe IM ×2 (14:04→15:38)
--- NOTE | 2019-02-01 14:15 | RAD_ITS ---
STUDY: X-RAY - LUMBAR SPINE REASON FOR EXAM: Male, 49 years old. Low back pain. TECHNIQUE: 5 view(s) of the lumbar spine were obtained including oblique views. COMPARISON: Comparison is made with prior study dated February 13, 2017. FINDINGS: There is straightening of the normal lumbar lordosis. There is no substantial scoliosis. There is a normal alignment of the vertebrae. There is multilevel endplate spondylosis of the lumbar vertebrae. There is multi-level mild degenerative disc disease with multi-level disc space narrowing. There is atherosclerotic calcification of the abdominal aorta without a demonstrated aneurysm. Questionable small left intrarenal calculi. RAD/L/S Spine Min 4 Views IMPRESSION: Degenerative changes of the spine, as detailed above. Straightening of the normal lumbar lordosis. Electronically Signed: Luis Felipe Collier, at 14:31 EST , Service support ,
[2019-02-01] MEDS: Triamcinolone Acetonide 40 MG/ML Vial IM (15:38)
== END 2019-02-01 16:41 | disposition home or self-care (01) ==
PROVIDERS: Emergency Provider Emergency Medicine; Family Provider Family Medicine; PCP Family Medicine
DX: M54.41 Lumbago with sciatica, right side (principal); Z59.0 Homelessness; F17.200 Nicotine dependence, unspecified, uncomplicated; Z88.6 Allergy status to analgesic agent
CPT/HCPCS: 72110; 96372; 99282

== ENCOUNTER 2019-02-05 19:40 | Emergency (ER) | payer MEDICAID, SELFPAY ==
[2019-02-05 19:41] VITALS: BP 132/104; PULSE 82; RESP 16; TEMP 36.9; O2SAT 99; BMI 25.8
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
[2019-02-05 20:41] VITALS: RESP 16
[2019-02-05 20:50] LABS: Absolute Lymphocyte Count 1.67 X10^3/uL (0.83-4.51); Absolute Neutrophil Count 8.5 X10^3/uL (2.0-7.7); Basophil# 0.05 X10^3/uL; Basophil% 0.4 % (0-1); Eosinophil# 0.03 X10^3/uL; Eosinophils% 0.3 % (0-5); Hematocrit 47.7 % (40-54); Hemoglobin 15.6 g/dL (13.0-16.5); Lymphocyte # 1.67 X10^3/ul (4.0); Mean Corp Hgb Conc 32.7 g/dL (32-36); Mean Corpuscular Hgb 31.5 pg (27.0-32.0); Mean Corpuscular Volume 96.4 fL (80-94); Mean Platelet Vol. 8.7 fl (6.2-12.0); Monocyte# 0.83 X10^3/uL; Monocyte% 7.5 % (0-10); NRBC Flagged by Analyzer 0 % (0-5); Neutrophil # 8.52 X10^3/uL (2.7-7.7); Neutrophil % 76.4 % (47-70); Platelet Count 275 K/mm3 (150-450); RBC Distribution Width CV 13.2 % (11.6-14.6); Red Blood Count 4.95 M/mm3 (4.6-6.2); White Blood Count 11.1 K/mm3 (4.4-11.0)
[2019-02-05 20:54] LABS: Anion Gap 8 (5-15); BUN 18 mg/dL (7-18); BUN/Creat Ratio 20.1 RATIO (10-20); Calcium,Total 9.4 mg/dL (8.5-10.1); Chloride 103 mmol/L (98-107); EST Glomerular Filtration Rate 96 mL/min (>60); Est Glom Filt Rate - Afr Amer 116 mL/min (>60); Estimated Creatinine Clearance 108.98 ml/min; Glucose 109 mg/dL (74-106); Potassium 3.4 mmol/L (3.5-5.1); Sodium Level 141 mmol/L (136-145)
[2019-02-05 21:00] VITALS: RESP 14
[2019-02-05 21:10] LABS: Alcohol, Blood (Medical)-Serum < 3.0 mg/dL
[2019-02-05 21:35] LABS: Amphetamine Urine VISTA POSITIVE (<1000 ng/mL); Barbiturate Urine VISTA NEGATIVE (< 200 ng/mL); Benzodiazepine Urine VISTA POSITIVE (< 200 ng/mL); Cocaine Urine VISTA NEGATIVE (< 300 ng/mL); Ecstacy Urine VISTA NEGATIVE (< 500 ng/mL); Methadone Urine VISTA NEGATIVE (< 300 ng/mL); PCP Urine VISTA NEGATIVE (< 25 ng/mL); THC Urine VISTA POSITIVE (< 50 ng/mL); Vista UDS pH Range 6
--- NOTE | 2019-02-05 21:41 | ED.DCSUM_ITS ---
History of Present Illness Chief Complaint: Suicidal Detail of Chief Complaint: Presented because of back pain, fourth visit since the end of December Informant: Patient, Significant Other Onset: Days, Weeks Context: She has had continuous pain with numbness right leg and intermittent right upper back pain. Conflict: - - Back pain with depression, and suicidal thoughts. Timing: Intermittent Current Severity: Moderate Maximum Severity: Moderate Worsened by: Situational factors - To chronic back pain, - - History of drug use and alcohol use. Associated Symptoms: Depressed, Change in sleeping, Decreased Interest, Suicidal Thoughts, Easily distracted, Agitated, Angry. Negative for: Increased activity, Pressured Speech, Threatening, Visual Hallucinations, Auditory Hallucinations Specific plan (suicidal thought): Shoot himself Narrative: Patient is a 49-year-old male with chronic back pain. He states she had a EMG performed which reveals deficit right leg. He presents with right low back pain with radiation posteriorly to his toes. He denies foot drop. He is not go up or down steps and unable to answer if he has buckling of his knees going up or down steps. He denies bowel or bladder dysfunction. He denies saddle paresthesia or anesthesia. He also reports intermittent right trapezius pain. He denies any radicular pain in his right or left upper extremity. He denies fever, chills night sweats. He denies ocular, visual or auditory symptoms. Patient states he can no longer do with this. He is at risk to harm himself. He does have a drug dependency issue as well. Prior similar symptoms: Yes Recent Illness/Hospitalization: Yes - Past Medical History (1) Abnormal LFTs (liver function tests) Status: Acute (2) Suicide attempt by drug ingestion Status: Acute (3) Depression Status: Chronic (4) Illicit drug use Status: Chronic (5) Smoking addiction Status: Chronic Past Medical History - Allergies and Home Meds Allergies/Adverse Reactions: Allergies NSAIDS (Non-Steroidal Anti-Inflamma Adverse Reaction (Verified 01/28/19 15:33) Nausea SEA FOOD Allergy (Uncoded 01/28/19 15:33) Anaphylaxis Primary Care Physician: Hayes Deluna MD [Primary Care Provider] - Prior records reviewed: Yes Surgical History: - - Unknown, patient is intubated at the time of my exam. Lives: Spouse/ Significant Other Smoking Status: Current every day smoker Alcohol: Rare Drugs: Marijuana, - - Other illicit drugs - Family History Maternal Family History: Reports: - - Could not obtain, patient is intubated Review of Systems General: Denies: Chills, Fever, Malaise, Subjective, Sweats Eyes: Denies: Visual changes - bilaterally, Blurred Vision - bilaterally, Diplopia ENT: Denies: Bilateral ear pain, Rhinorrhea, Sore throat Cardiovascular: Denies: Chest pain, Palpitations Respiratory: Denies: Dyspnea, Cough, Dyspnea on exertion Gastrointestinal: Denies: Abdominal pain, Nausea, Vomiting, Diarrhea, Melena, Hematochezia Genitourinary: Denies: Dysuria, Hematuria, Frequency Musculoskeletal: Reports: Back pain, Extremity Pain. Denies: Myalgias, Arthralgias, Neck pain, Swelling Skin: Denies: Rash, Wounds Neurological: Reports: Weakness - Right lower leg which is known and chronic, Parasthesia, Numbness. Denies: Headache Psych: Reports: Depression, Anxiety, Suicidal thoughts, Suicidal ideations Hematologic: Denies: Easy bruising, Easy bleeding Allergy: Denies: Uticaria, Swelling of the mouth Physical Exam Vital Signs/Narrative: Vital Signs Temp Pulse Resp BP Pulse Ox 02/05/19 20:41 16 02/05/19 19:41 98.5 F 82 16 132/104 H 99 Inital Vital Signs reviewed: Yes General: Well nourished, Well developed Head: Normocephalic, Atraumatic Eyes: Perrl, EOMI ENT: Moist mucous membranes, No rhinorrhea Neck: Supple, Nontender Cardiovascular: Regular rate, Regular rhythm, No murmurs Respiratory: No distress, CTA bilaterally, Chest nontender Abdomen: Soft, Nontender, Nondistended, Normal bowel sounds Back: Nontender, Normal Inspection, - - Right leg test is positive on the right. Negative crossover test. Patella reflex is 1+ on the right 2+ on the left. Ankle reflexes 2+ bilaterally. EHL is intact. 5/5 dorsi and plantarflexion of the right and left foot. He has a negative femoral stretch test. Extremities: Nontender, No Edema Skin: Normal color, No rash Neurological: Alert, Oriented x3, Cranial nerves II-XII grossly intact, Normal Strength, Normal Sensation. Negative for: Normal DTR Psych: Depressed, Irritable, Poverty of Speech, Suicidal thoughts, Poor Insight, Poor Judgement. Negative for: Logical sequential goal directed thoughts, No suicidal or homicidal ideation, Normal Stable Appropriate Affect, Good Insight, Good Judgement, Normal Appearance Diagnostic/Tx/Re-eval Laboratory Results 02/05/19 02/05/19 02/05/19 20:35 20:35 20:35 WBC 11.1 H RBC 4.95 Hgb 15.6 Hct 47.7 MCV 96.4 H MCH 31.5 MCHC 32.7 RDW Std Deviation 47.0 H RDW Coeff of Yaya 13.2 Plt Count 275 MPV 8.7 Immature Gran % (Auto) 0.400 Neut % (Auto) 76.4 H Lymph % (Auto) 15.0 L Greenlee % (Auto) 7.5 Eos % (Auto) 0.3 Baso % (Auto) 0.4 Absolute Neuts (auto) 8.5 H Absolute Lymphs (auto) 1.67 Nucleated RBC % 0 Sodium 141 Potassium 3.4 L Chloride 103 Carbon Dioxide 30.0 Anion Gap 8 BUN 18 Creatinine 0.90 Estim Creat Clear Calc 108.98 Est GFR (MDRD) Af Amer 116 Est GFR (MDRD) Non-Af 96 BUN/Creatinine Ratio 20.1 H Glucose 109 H Calcium 9.4 Urine Opiates Screen Urine Methadone Screen Ur Barbiturates Screen Ur Phencyclidine Scrn Ur Amphetamines Screen U Methamphetamin-MDMA U Benzodiazepines Scrn Urine Cocaine Screen U Cannabinoids Screen Ur Drug Screen Comment Ethyl Alcohol < 3.0 02/05/19 20:50 WBC RBC Hgb Hct MCV MCH MCHC RDW Std Deviation RDW Coeff of Yaya Plt Count MPV Immature Gran % (Auto) Neut % (Auto) Lymph % (Auto) Greenlee % (Auto) Eos % (Auto) Baso % (Auto) Absolute Neuts (auto) Absolute Lymphs (auto) Nucleated RBC % Sodium Potassium Chloride Carbon Dioxide Anion Gap BUN Creatinine Estim Creat Clear Calc Est GFR (MDRD) Af Amer Est GFR (MDRD) Non-Af BUN/Creatinine Ratio Glucose Calcium Urine Opiates Screen NEGATIVE Urine Methadone Screen NEGATIVE Ur Barbiturates Screen NEGATIVE Ur Phencyclidine Scrn NEGATIVE Ur Amphetamines Screen POSITIVE H U Methamphetamin-MDMA NEGATIVE U Benzodiazepines Scrn POSITIVE H Urine Cocaine Screen NEGATIVE U Cannabinoids Screen POSITIVE H Ur Drug Screen Comment Ethyl Alcohol Tox screen is positive for amphetamines, benzodiazepine and cannabinoids. Alcohol level is negative. White count is slightly elevated which in all likelihood is a stress response. There is no signs or symptoms of infection. Patient has specific plan had Myla from social service/case management see patient. She agrees patient requires hospitalization. He is medically cleared. There is no medical condition in my professional medical opinion that would prohibit transfer to psychiatric facility for patient to receive appropriate psychiatric care. ED Disposition - Plan for ED Patient: Disposition: Psychiatric Hospital or Unit Diagnosis: Depression with suicidal ideation, Acute exacerbation of chronic low back pain, Paresthesia of right lower extremity, Illicit drug use, continuous Referrals: Hayes Deluna MD [Primary Care Provider] -
--- NOTE | 2019-02-05 21:54 | CM.ED ---
Social Work Per Dr. Snow patient is medically cleared. Referral placed to [facility] in [place], [place]. They are in-network with patient insurance. Pending approval. Jigar JOHNSON, HELLEN
[2019-02-05 22:00] VITALS: RESP 16
--- NOTE | 2019-02-05 22:31 | CM.ED ---
Social Work Telephone call from [facility] ([place]), Patient has been accepted. Admitting: SILVINO Reddy. Report: [phone]. Admitting to [address] [place] [address]. Updated patient and medical team, all agreeable to plan. [place] [facility] faxed. Jigar JOHNSON, HELLEN
[2019-02-05 23:00] VITALS: RESP 16
[2019-02-05] MEDS: HYDROcodone Bitartrate/Apap 5/325 Tablet PO (23:24)
[2019-02-05] MEDS: LORazepam 1 MG Tablet PO (23:24)
--- NOTE | 2019-02-05 23:25 | ED.RN ---
PT BECOMING ANXIOUS AND THREATENING TO WALK OUT. MEDICATION OBTAINED FROM DOCTOR FOR ANXIETY AND BACK PAIN
[2019-02-06] VITALS (9 sets, daily range): BP systolic 129–151; BP diastolic 89–105; PULSE 82–120; RESP 14–18; O2SAT 97–100
[2019-02-06] MEDS: traMADol 50 MG Tablet PO (05:23)
--- NOTE | 2019-02-06 05:32 | ED.RN ---
PT STATES HE WANTS HIS TWO SWEATSHIRTS AND TO LEAVE. PT WAS TOLD HE IS PINK SLIPPED SO HE CANNOT LEAVE, IF HE DOES THE POLICE WILL BRING HIM BACK. PT WAS ALSO TOLD HE CANNOT HAVE ANY OF HIS PERSONAL BELONGINGS IN HE ROOM SO NO SWEATSHIRT. PT THEN DEMANDED SOMETHING FOR HIS CHRONIC BACK PAIN AND ANXIETY. THE DOCTOR WAS INFORMED AND MEDICATION WAS ORDERED AND GIVEN TO PATIENT. PT STATES HE WILL BE LEAVING THE HOSPITAL IN FIFTEEN MINUTES. THIS RN REITERATED THAT HE IS PINK SLIPPED AND WILL BE BROUGHT BACK TO WHICH HE STATES THEY HAVE TO FIND ME FIRST. DOCTOR NOTIFIED
--- NOTE | 2019-02-06 05:37 | ED.RN ---
NURSE IN TO MEDICATE PATIENT. PATIENT INFORMED THAT HE HAS BEEN ACCEPTED TO [facility] AND THAT HE IS TRULY PINK SLIPPED. PATIENT WANTS TO LEAVE AND HE HAS DONE NOTHING TO DESERVE THIS. PATIENT STATED HE HAS A RIGHT TO REVOKE PINK SLIP ON HIS OWN FREE WILL. ADVISED PATIENT THAT HE CAN NOT. 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 PATIENT ADVISED HE HAS BEEN PINK SLIPPED DUE TO HIS SI COMMENTS. PATIENT STATES I AM NOT SUICIDAL I AM JUST WANT TO KILL EVERYONE I JUST NEED THE RIGHT TIME AND PLACE. DOCTOR MADE AWARE OF THIS AND PATIENT GIVEN HIS PAIN MEDICATION AND A SANDWICH AT THIS TIME
== END 2019-02-06 09:03 ==
PROVIDERS: Emergency Provider Emergency Medicine; Family Provider Family Medicine; PCP Family Medicine
DX: F32.9 Major depressive disorder, single episode, unspecified (principal); R45.851 Suicidal ideations; M54.5 Low back pain; M54.6 Pain in thoracic spine; G89.29 Other chronic pain; F19.10 Other psychoactive substance abuse, uncomplicated; R94.5 Abnormal results of liver function studies; R20.0 Anesthesia of skin; F17.200 Nicotine dependence, unspecified, uncomplicated; Z88.6 Allergy status to analgesic agent
CPT/HCPCS: 80048; 80307; 80320; 85025; 99284; G0480

== ENCOUNTER 2019-02-23 08:37 | Emergency (ER) | payer MEDICAID, SELFPAY ==
[2019-02-23 08:37] VITALS: BP 138/85; PULSE 95; RESP 16; TEMP 36.4; BMI 28.5
--- NOTE | 2019-02-23 08:47 | ED.VIS.GEN ---
History of Present Illness Chief Complaint: Abd Pain Informant: Patient Onset: Days - 3 Context: Gradual Onset Timing: Continuous Current Severity: Moderate Maximum Severity: Moderate Narrative: Patient presents with epigastric pain that started 3 days ago. It is associated with nausea and vomiting. He has no fever or chills he has some back pain. He says this is consistent with his pancreatitis, he has chronic pancreatitis secondary to alcohol use. He has not drank alcohol in a few years and tells me he did not relapse. He has no lower abdominal pain no fever or chills he has no urinary symptoms or flank pain. He has no chest pain or shortness of breath. Past Medical History - Allergies and Home Meds Allergies/Adverse Reactions: Allergies NSAIDS (Non-Steroidal Anti-Inflamma Adverse Reaction (Verified 02/23/19 08:39) Nausea SEA FOOD Allergy (Uncoded 02/23/19 08:39) Anaphylaxis Primary Care Physician: Hayes Deluna MD [Primary Care Provider] - Past Medical History: - - Pancreatitis, history of alcoholism, psychiatric disease Surgical History: - - Unknown, patient is intubated at the time of my exam. Smoking Status: Current every day smoker - Family History Maternal Family History: Reports: - - Could not obtain, patient is intubated Review of Systems All systems negative except as indicated General: Denies: Fever ENT: Denies: Sore throat Cardiovascular: Denies: Chest pain Respiratory: Denies: Dyspnea, Cough Gastrointestinal: Reports: Abdominal pain, Nausea, Vomiting. Denies: Diarrhea, Constipation Genitourinary: Denies: Dysuria Musculoskeletal: Denies: Myalgias, Neck pain Skin: Denies: Rash Neurological: Denies: Headache, Weakness Psych: Denies: Anxiety Endocrine: Denies: Polyuria Hematologic: Denies: Easy bruising Allergy: Denies: Swelling of the mouth Physical Exam Vital Signs/Narrative: Vital Signs Temp Pulse Resp BP 02/23/19 08:37 97.5 F L 95 16 138/85 H Inital Vital Signs reviewed: Yes General: Acute Distress, - - Appears in some distress Head: Normocephalic Eyes: Perrl, EOMI ENT: Dry mucous membranes Neck: Supple Cardiovascular: Regular rate, Regular rhythm Respiratory: No distress, CTA bilaterally Abdomen: Soft, - - There is epigastric tenderness without any guarding or rebound there is no lower abdominal pain Back: Nontender, Normal Inspection Extremities: Nontender, No edema Skin: Normal color, No rash Neurological: Normal Strength Psychological: - - Anxious Diagnostic/Tx/Re-eval - Medical Decision Making Patient has a normal work-up and a normal lipase. He likely has chronic pancreatitis he is given analgesia and IV fluids he improved. I will discharge him in stable condition. ED Disposition - Plan for ED Patient: Disposition: Home or Assisted Living Diagnosis: Pancreatitis, chronic Instructions: ABDOMINAL PAIN, Unkown Cause, (Male) Prescriptions: Ondansetron [Zofran Odt] 4 mg PO Q8H PRN PRN #10 tab PRN Reason: Nausea Prescription Printed Referrals: Hayes Deluna MD [Primary Care Provider] - 2 Days
[2019-02-23] MEDS: Ondansetron 4 MG/2 ML Vial IV (09:05)
[2019-02-23] MEDS: HYDROmorphone 1 MG/ML Syringe IV (09:05)
[2019-02-23] MEDS: 0.9% Normal Saline 1,000 ML 1000 ML IV (09:05)
[2019-02-23 09:34] LABS: Absolute Lymphocyte Count 0.93 X10^3/uL (0.83-4.51); Absolute Neutrophil Count 5.6 X10^3/uL (2.0-7.7); Basophil# 0.05 X10^3/uL; Basophil% 0.7 % (0-1); Eosinophil# 0.04 X10^3/uL; Eosinophils% 0.6 % (0-5); Hematocrit 45.8 % (40-54); Hemoglobin 14.9 g/dL (13.0-16.5); Lymphocyte # 0.93 X10^3/ul (4.0); Lymphocyte % 12.8 % (19-41); Mean Corp Hgb Conc 32.5 g/dL (32-36); Mean Corpuscular Hgb 31.8 pg (27.0-32.0); Mean Corpuscular Volume 97.9 fL (80-94); Mean Platelet Vol. 8.5 fl (6.2-12.0); Monocyte# 0.56 X10^3/uL; Monocyte% 7.7 % (0-10); NRBC Flagged by Analyzer 0 % (0-5); Neutrophil # 5.64 X10^3/uL (2.7-7.7); Neutrophil % 77.8 % (47-70); Platelet Count 254 K/mm3 (150-450); RBC Distribution Width CV 13.4 % (11.6-14.6); RBC Distribution Width SD 48.2 fl (35.1-43.9); Red Blood Count 4.68 M/mm3 (4.6-6.2); White Blood Count 7.3 K/mm3 (4.4-11.0)
[2019-02-23 09:50] LABS: ALB/GLOB Ratio 1.1 RATIO (0.9-2.4); AST(SGOT) 17 U/L (15-37); Alanine Aminotransfer ALT/SGPT 27 U/L (16-61); Albumin, Serum 3.4 g/dL (3.2-5.0); Alkaline Phosphatase 66 U/L (45-117); Anion Gap 4 (5-15); BUN 11 mg/dL (7-18); BUN/Creat Ratio 12.6 RATIO (10-20); Calcium,Total 8.7 mg/dL (8.5-10.1); Chloride 112 mmol/L (98-107); Creatinine, Serum 0.88 mg/dL (0.70-1.30); EST Glomerular Filtration Rate 98 mL/min (>60); Est Glom Filt Rate - Afr Amer 119 mL/min (>60); Estimated Creatinine Clearance 111.45 ml/min; Globulin 3.1 g/dL (2.2-4.2); Glucose 111 mg/dL (74-106); Lipase 75 U/L (73-393); Potassium 3.6 mmol/L (3.5-5.1); Protein, Total 6.5 g/dL (6.4-8.2); Sodium Level 145 mmol/L (136-145)
[2019-02-23] MEDS: Morphine 4 MG/ML Syringe IV (10:36)
[2019-02-23 10:37] VITALS: BP 137/97; PULSE 94; RESP 16; O2SAT 99
[2019-02-23 11:06] VITALS: BP 134/88; PULSE 103; RESP 16; O2SAT 98
== END 2019-02-23 11:07 | disposition home or self-care (01) ==
PROVIDERS: Emergency Provider Emergency Medicine; Family Provider Family Medicine; PCP Family Medicine
DX: K86.0 Alcohol-induced chronic pancreatitis (principal); F10.21 Alcohol dependence, in remission; F17.200 Nicotine dependence, unspecified, uncomplicated; Z88.6 Allergy status to analgesic agent
CPT/HCPCS: 80053; 83690; 85025; 96361; 96374; 96375; 99283; J7030; A4216; J2405

== ENCOUNTER 2019-02-25 03:03 | Emergency (ER) | payer MEDICAID, SELFPAY ==
[2019-02-25 03:04] VITALS: BP 158/76; PULSE 99; RESP 16; TEMP 36.4; O2SAT 98; BMI 25.3
--- NOTE | 2019-02-25 03:15 | ED.VIS.GEN ---
History of Present Illness Chief Complaint: Abd Pain Informant: Patient Onset: Yesterday Context: Gradual Onset Timing: Waxes and wanes Current Severity: Moderate Maximum Severity: Moderate Narrative: Patient presents with recurrent epigastric pain. He has a history of chronic pancreatitis. He was seen in this ER 2 days ago for similar. Patient states pain returned again yesterday. He reports nausea and vomiting but no diarrhea. He denies fever or chills. He denies recent alcohol abuse. He states he was told in the past his pancreatitis was secondary to gallstones. His gallbladder was removed a couple years ago. - Past Medical History (1) Chronic pancreatitis Status: Chronic (2) Hepatitis C Status: Resolved (3) Depression Status: Chronic Past Medical History - Allergies and Home Meds Allergies/Adverse Reactions: Allergies NSAIDS (Non-Steroidal Anti-Inflamma Adverse Reaction (Verified 02/25/19 03:09) Nausea SEA FOOD Allergy (Uncoded 02/25/19 03:09) Anaphylaxis Primary Care Physician: Hayes Deluna MD [Primary Care Provider] - Prior records reviewed: Yes Surgical History: - - Unknown, patient is intubated at the time of my exam. Lives: Homeless Smoking Status: Current every day smoker Alcohol: None - Family History Maternal Family History: Reports: - - Could not obtain, patient is intubated Review of Systems General: Denies: Chills, Fever Eyes: Denies: Visual changes - bilaterally ENT: Denies: Bilateral ear pain, Sore throat Cardiovascular: Denies: Chest pain Respiratory: Denies: Dyspnea, Cough Gastrointestinal: Reports: Abdominal pain, Nausea, Vomiting. Denies: Diarrhea Genitourinary: Denies: Dysuria Musculoskeletal: Denies: Back pain, Extremity Pain Skin: Denies: Rash Neurological: Denies: Headache Allergy: Denies: Uticaria Physical Exam Vital Signs/Narrative: Vital Signs Temp Pulse Resp BP Pulse Ox 02/25/19 03:04 97.5 F L 99 16 158/76 H 98 Inital Vital Signs reviewed: Yes General: Well nourished, Well developed Head: Normocephalic ENT: Moist mucous membranes Neck: Supple Cardiovascular: Regular rate, Regular rhythm Respiratory: No distress, CTA bilaterally Abdomen: Soft, Tender - Mild tenderness in the epigastric region., Hypoactive bowel sounds. Negative for: Guarding, Rebound tenderness Extremities: Nontender Skin: Normal color, No rash Neurological: Alert, Oriented x3 Psychological: Normal affect Diagnostic/Tx/Re-eval Laboratory Results 02/25/19 02/25/19 03:25 03:25 WBC 7.7 RBC 4.74 Hgb 15.0 Hct 46.0 MCV 97.0 H MCH 31.6 MCHC 32.6 RDW Std Deviation 47.7 H RDW Coeff of Yaya 13.2 Plt Count 262 MPV 8.6 Immature Gran % (Auto) 0.400 Neut % (Auto) 76.4 H Lymph % (Auto) 13.9 L [place] % (Auto) 7.5 Eos % (Auto) 1.3 Baso % (Auto) 0.5 Absolute Neuts (auto) 5.9 Absolute Lymphs (auto) 1.07 Nucleated RBC % 0 Sodium 141 Potassium 3.5 Chloride 105 Carbon Dioxide 31.0 Anion Gap 5 BUN 12 Creatinine 1.08 Estim Creat Clear Calc 90.81 Est GFR (MDRD) Af Amer 93 Est GFR (MDRD) Non-Af 77 BUN/Creatinine Ratio 11.1 Glucose 109 H Calcium 9.3 Total Bilirubin 0.50 Direct Bilirubin 0.15 AST 28 ALT 42 Alkaline Phosphatase 79 Total Protein 7.5 Albumin 3.9 Globulin 3.6 Lipase 98 - Medical Decision Making Patient was initially given morphine, Zofran, and Protonix. This was followed by a dose of Bentyl. On repeat evaluation patient states his pain is improved but still present in the epigastric area. On repeat abdominal exam he continues to have no guarding or rebound. Labs are not significantly changed when compared to recent studies. At this time patient will be given a prescription for Zofran, Prilosec, Bentyl. He is referred to local GI for follow-up. He can also follow-up with Dr. Deluna. ED Disposition - Plan for ED Patient: Disposition: Home or Assisted Living Diagnosis: Epigastric pain Instructions: EPIGASTRIC PAIN (Uncertain cause) Prescriptions: Dicyclomine HCl [Bentyl] 20 mg PO TIDAC #20 capsule Omeprazole [Prilosec] 20 mg PO DAILY #30 capsule Ondansetron [Zofran Odt] 4 mg PO Q8H PRN PRN #10 tablet PRN Reason: Nausea Referrals: Andriy Melton MD [NON-STAFF] - As Needed Hayes Deluna MD [Primary Care Provider] - 1-2 Weeks
[2019-02-25] MEDS: Morphine 4 MG/ML Syringe IV (03:30)
[2019-02-25] MEDS: Ondansetron 4 MG/2 ML Vial IV (03:30)
[2019-02-25] MEDS: 0.9% Normal Saline 1,000 ML 1000 ML IV (03:30)
[2019-02-25 03:41] LABS: Absolute Lymphocyte Count 1.07 X10^3/uL (0.83-4.51); Absolute Neutrophil Count 5.9 X10^3/uL (2.0-7.7); Basophil# 0.04 X10^3/uL; Basophil% 0.5 % (0-1); Eosinophils% 1.3 % (0-5); Lymphocyte # 1.07 X10^3/ul (4.0); Lymphocyte % 13.9 % (19-41); Mean Corp Hgb Conc 32.6 g/dL (32-36); Mean Corpuscular Hgb 31.6 pg (27.0-32.0); Mean Platelet Vol. 8.6 fl (6.2-12.0); Monocyte# 0.58 X10^3/uL; Monocyte% 7.5 % (0-10); NRBC Flagged by Analyzer 0 % (0-5); Neutrophil % 76.4 % (47-70); Platelet Count 262 K/mm3 (150-450); RBC Distribution Width CV 13.2 % (11.6-14.6); RBC Distribution Width SD 47.7 fl (35.1-43.9); Red Blood Count 4.74 M/mm3 (4.6-6.2); White Blood Count 7.7 K/mm3 (4.4-11.0)
[2019-02-25 03:51] LABS: AST(SGOT) 28 U/L (15-37); Alanine Aminotransfer ALT/SGPT 42 U/L (16-61); Albumin, Serum 3.9 g/dL (3.2-5.0); Alkaline Phosphatase 79 U/L (45-117); Anion Gap 5 (5-15); BUN 12 mg/dL (7-18); BUN/Creat Ratio 11.1 RATIO (10-20); Bilirubin, Direct 0.15 mg/dL (0.00-0.30); Calcium,Total 9.3 mg/dL (8.5-10.1); Chloride 105 mmol/L (98-107); Creatinine, Serum 1.08 mg/dL (0.70-1.30); EST Glomerular Filtration Rate 77 mL/min (>60); Est Glom Filt Rate - Afr Amer 93 mL/min (>60); Estimated Creatinine Clearance 90.81 ml/min; Globulin 3.6 g/dL (2.2-4.2); Glucose 109 mg/dL (74-106); Lipase 98 U/L (73-393); Potassium 3.5 mmol/L (3.5-5.1); Protein, Total 7.5 g/dL (6.4-8.2); Sodium Level 141 mmol/L (136-145)
[2019-02-25] MEDS: Dicyclomine 20 MG/2 ML Vial IM (05:06)
[2019-02-25] MEDS: 0.9% Normal Saline 1,000 ML 150 ML IV (05:08)
[2019-02-25 06:01] VITALS: BP 136/103; PULSE 95; RESP 16; O2SAT 98
[2019-02-25] MEDS: HYDROcodone Bitartrate/Apap 5/325 Tablet PO (06:03)
--- NOTE | 2019-02-25 06:12 | ED.RN ---
PT ASKED FOR A WARM SHOWER. DECLINED WE DO NOT HAVE SHOWERS IN ED. PT ALSO ASKED FOR A GATORADE, WATER WAS GIVEN. REMOVED PTS IV AFTER MUCH DEBACLE OF REPOSITIONING TO ROLL DOWN IV. PT HAS BEEN LAYING ON HIS STOMACH FOR THE ENTIRE ED VISIT. PT WANTED A RIDE BACK DOWNTOWN TO THE [employer]. PT STATED HE WAS UNABLE TO WALK. INFORMED PT THAT WE DO NOT HAVE TRANSPORTATION ON A HOLIDAY. PT ASKED IF HE COULD SLEEP HERE A WHILE LONGER, INFORMED PT WE COULD NOT ACCOMMODATE THAT D/T ED VOLUME. PT DRESSED AND AMBULATED TO RESTROOM WITH A STEADY AND INDEPENDENT GAIT.
== END 2019-02-25 06:20 | disposition home or self-care (01) ==
PROVIDERS: Emergency Provider Emergency Medicine; Family Provider Family Medicine; PCP Family Medicine
DX: R10.13 Epigastric pain (principal); K86.1 Other chronic pancreatitis; F32.9 Major depressive disorder, single episode, unspecified; F17.200 Nicotine dependence, unspecified, uncomplicated; Z59.0 Homelessness; Z86.19 Personal history of other infectious and parasitic diseases; Z88.6 Allergy status to analgesic agent
CPT/HCPCS: 80048; 80076; 83690; 85025; 96361; 96365; 96372; 96375; 99285; J7030; J2405

== ENCOUNTER 2019-02-26 02:11 | Emergency (ER) | payer MEDICAID, SELFPAY ==
[2019-02-25 03:04] VITALS: BMI 25.3
[2019-02-26 02:13] VITALS: BP 168/111; PULSE 102; RESP 18; TEMP 36.7; O2SAT 99; BMI 29.1
--- NOTE | 2019-02-26 03:03 | ED.DCSUM_ITS ---
History of Present Illness Chief Complaint: Abd Pain Informant: Patient Onset: Days Current Severity: Moderate Maximum Severity: Moderate Narrative: Patient presents with epigastric abdominal pain. She has a history of chronic pancreatitis. He was seen last night for upper abdominal pain and laboratory evaluation was unremarkable. Physical exam was not noted to be significant and patient was discharged. Patient presents back by EMS earlier this morning. He states that he woke while sleeping with worsened pain. He states he did have some pain throughout the day. He was able to eat a little bit. He does report having nausea and vomiting. - Past Medical History (1) Chronic pancreatitis Status: Chronic (2) Hepatitis C Status: Resolved Past Medical History - Allergies and Home Meds Allergies/Adverse Reactions: Allergies NSAIDS (Non-Steroidal Anti-Inflamma Adverse Reaction (Verified 02/26/19 02:12) Nausea SEA FOOD Allergy (Uncoded 02/26/19 02:12) Anaphylaxis Primary Care Physician: Hayes Deluna MD [Primary Care Provider] - Prior records reviewed: Yes Surgical History: cholecystectomy, - - Unknown, patient is intubated at the time of my exam. Smoking Status: Current every day smoker - Family History Maternal Family History: Reports: - - Could not obtain, patient is intubated Review of Systems General: Denies: Chills, Fever Eyes: Denies: Visual changes - bilaterally ENT: Denies: Bilateral ear pain Cardiovascular: Denies: Chest pain Respiratory: Denies: Dyspnea, Cough Gastrointestinal: Reports: Abdominal pain, Nausea, Vomiting. Denies: Diarrhea Genitourinary: Denies: Dysuria Musculoskeletal: Denies: Extremity Pain Skin: Denies: Rash Neurological: Denies: Headache Hematologic: Denies: Easy bruising Allergy: Denies: Uticaria Physical Exam Vital Signs/Narrative: Vital Signs Temp Pulse Resp BP Pulse Ox 02/26/19 02:13 98.0 F 102 H 18 168/111 H 99 Inital Vital Signs reviewed: Yes General: Well nourished, Well developed, - - Patient lying prone on the bed in no acute distress. Head: Normocephalic, Atraumatic ENT: Moist mucous membranes Cardiovascular: Regular rate, Regular rhythm Respiratory: No distress, CTA bilaterally Abdomen: Soft, Tender - Mild tenderness to the epigastric region., Hypoactive bowel sounds. Negative for: Guarding, Rebound tenderness Back: Nontender Extremities: Nontender Skin: Normal color Neurological: Alert, Oriented x3 Psychological: Normal affect Diagnostic/Tx/Re-eval Laboratory Tests 02/26/19 02/26/19 Range/Units 03:02 03:02 WBC 6.9 (4.4-11.0) K/mm3 RBC 4.87 (4.6-6.2) M/mm3 Hgb 15.3 (13.0-16.5) g/dL Hct 46.7 (40-54) % MCV 95.9 H (80-94) fL MCH 31.4 (27.0-32.0) pg MCHC 32.8 (32-36) g/dL RDW Std Deviation 46.7 H (35.1-43.9) fl RDW Coeff of Yaya 13.2 (11.6-14.6) % Plt Count 249 (150-450) K/mm3 MPV 8.5 (6.2-12.0) fl Immature Gran % (Auto) 0.400 (0.0-0.9) % Neut % (Auto) 64.6 (47-70) % Lymph % (Auto) 24.1 (19-41) % [place] % (Auto) 8.9 (0-10) % Eos % (Auto) 1.3 (0-5) % Baso % (Auto) 0.7 (0-1) % Absolute Neuts (auto) 4.5 (2.0-7.7) X10^3/uL Absolute Lymphs (auto) 1.67 (0.83-4.51) X10^3/uL Nucleated RBC % 0 (0-5) % Sodium 141 (136-145) mmol/L Potassium 3.6 (3.5-5.1) mmol/L Chloride 105 (98-107) mmol/L Carbon Dioxide 30.0 (21.0-32.0) mmol/L Anion Gap 6 (5-15) BUN 11 (7-18) mg/dL Creatinine 1.01 (0.70-1.30) mg/dL Estim Creat Clear Calc 97.11 ml/min Est GFR (MDRD) Af Amer 101 (>60) mL/min Est GFR (MDRD) Non-Af 83 (>60) mL/min BUN/Creatinine Ratio 10.9 (10-20) RATIO Glucose 120 H (74-106) mg/dL Calcium 8.9 (8.5-10.1) mg/dL Total Bilirubin 0.50 (0.20-1.00) mg/dL Direct Bilirubin 0.14 (0.00-0.30) mg/dL AST 30 (15-37) U/L ALT 43 (16-61) U/L Alkaline Phosphatase 76 (45-117) U/L Total Protein 7.0 (6.4-8.2) g/dL Albumin 3.5 (3.2-5.0) g/dL Globulin 3.5 (2.2-4.2) g/dL Lipase 118 (73-393) U/L - Medical Decision Making Patient was given a small dose of Dilaudid and Zofran along with IV fluids. On repeat evaluation is sleeping comfortably. This time patient is alert. Abdomen exam remains with mild tenderness in the upper abdomen with no guarding. He states he feels like someone is tying his stomach in knots. He will be given another dose of Bentyl and Pepcid. He was given prescriptions last night for Prilosec, Bentyl, and Zofran. He states he will fill this at the pharmacy toda y. He was already given information for follow-up with his primary care physician as well as GI. At this time I see no acute indication for imaging. ED Disposition - Plan for ED Patient: Disposition: Home or Assisted Living Diagnosis: Epigastric pain Instructions: EPIGASTRIC PAIN (Uncertain cause) Referrals: Hayes Deluna MD [Primary Care Provider] - Andriy Melton MD [NON-STAFF] -
[2019-02-26 03:07] LABS: Absolute Lymphocyte Count 1.67 X10^3/uL (0.83-4.51); Absolute Neutrophil Count 4.5 X10^3/uL (2.0-7.7); Basophil# 0.05 X10^3/uL; Basophil% 0.7 % (0-1); Eosinophil# 0.09 X10^3/uL; Eosinophils% 1.3 % (0-5); Hematocrit 46.7 % (40-54); Hemoglobin 15.3 g/dL (13.0-16.5); Lymphocyte # 1.67 X10^3/ul (4.0); Lymphocyte % 24.1 % (19-41); Mean Corp Hgb Conc 32.8 g/dL (32-36); Mean Corpuscular Hgb 31.4 pg (27.0-32.0); Mean Corpuscular Volume 95.9 fL (80-94); Mean Platelet Vol. 8.5 fl (6.2-12.0); Monocyte# 0.62 X10^3/uL; Monocyte% 8.9 % (0-10); NRBC Flagged by Analyzer 0 % (0-5); Neutrophil # 4.47 X10^3/uL (2.7-7.7); Neutrophil % 64.6 % (47-70); Platelet Count 249 K/mm3 (150-450); RBC Distribution Width CV 13.2 % (11.6-14.6); RBC Distribution Width SD 46.7 fl (35.1-43.9); Red Blood Count 4.87 M/mm3 (4.6-6.2); White Blood Count 6.9 K/mm3 (4.4-11.0)
[2019-02-26] MEDS: Ondansetron 4 MG/2 ML Vial IV (03:09)
[2019-02-26] MEDS: HYDROmorphone 1 MG/ML Syringe 0.5 MG IV (03:13)
[2019-02-26 03:28] LABS: AST(SGOT) 30 U/L (15-37); Alanine Aminotransfer ALT/SGPT 43 U/L (16-61); Albumin, Serum 3.5 g/dL (3.2-5.0); Alkaline Phosphatase 76 U/L (45-117); Anion Gap 6 (5-15); BUN 11 mg/dL (7-18); BUN/Creat Ratio 10.9 RATIO (10-20); Bilirubin, Direct 0.14 mg/dL (0.00-0.30); Calcium,Total 8.9 mg/dL (8.5-10.1); Chloride 105 mmol/L (98-107); Creatinine, Serum 1.01 mg/dL (0.70-1.30); EST Glomerular Filtration Rate 83 mL/min (>60); Est Glom Filt Rate - Afr Amer 101 mL/min (>60); Estimated Creatinine Clearance 97.11 ml/min; Globulin 3.5 g/dL (2.2-4.2); Glucose 120 mg/dL (74-106); Lipase 118 U/L (73-393); Potassium 3.6 mmol/L (3.5-5.1); Sodium Level 141 mmol/L (136-145)
[2019-02-26 04:24] VITALS: RESP 16
[2019-02-26] MEDS: Dicyclomine 10 MG Capsule 20 MG PO (05:16)
[2019-02-26] MEDS: Famotidine 20 MG Tablet 40 MG PO (05:16)
[2019-02-26 05:20] VITALS: BP 162/80; PULSE 76; RESP 18; O2SAT 96
== END 2019-02-26 05:21 | disposition home or self-care (01) ==
PROVIDERS: Emergency Provider Emergency Medicine; Family Provider Family Medicine; PCP Family Medicine
DX: R10.13 Epigastric pain (principal); K86.1 Other chronic pancreatitis; F17.200 Nicotine dependence, unspecified, uncomplicated; Z88.6 Allergy status to analgesic agent; Z86.19 Personal history of other infectious and parasitic diseases; Z90.49 Acquired absence of other specified parts of digestive tract
CPT/HCPCS: 80048; 80076; 83690; 85025; 96374; 96375; 99285; J2405

== ENCOUNTER 2019-02-28 01:38 | Emergency (ER) | payer MEDICAID, SELFPAY ==
[2019-02-28 01:38] VITALS: BP 165/118; PULSE 107; RESP 18; TEMP 37.2; O2SAT 100; BMI 25.7
[2019-02-28] MEDS: proMETHazine 25 MG/ML Syringe 12.5 MG IV (02:24)
[2019-02-28] MEDS: morphine 10 MG/ML Syringe IV (02:25)
[2019-02-28 02:49] LABS: Lipase 212 U/L (73-393)
[2019-02-28 03:38] VITALS: BP 155/99; PULSE 99; RESP 14; O2SAT 96
--- NOTE | 2019-02-28 03:50 | ED.DCSUM_ITS ---
History of Present Illness Chief Complaint: Abd Pain Informant: Patient - Abdominal Pain/Flank Pain Onset: Weeks - 1 Context: Gradual Onset Timing: Continuous Quality: Aching, Dull Location: Epigastric Current Severity: Severe Maximum Severity: Severe Worsened by: Food Relieved by: Nothing - Nausea/Vomiting/Emesis GI Symptom: Nausea, Vomiting Quality: Nonbilious. Negative for: Blood streaks, Coffee ground, Hematemesis Severity: Severe - Diarrhea/Melena/Hematochezia GI Symptom: Negative for: Diarrhea, Melena, Hematochezia Associated Symptoms: Negative for: Dysuria, Frequency, Hematuria, Urgency Narrative: Long-standing history of chronic pancreatitis. This is the patient's fourth visit in the past week for the same thing. When asked what he is eating, he states whatever I can get. He is trying to eat soft things. He is able to drink fluids but food makes his vomiting and pain worse. He denies drinking any alcohol. He states nothing is different, he has the same symptoms he has had for the last week and with his other several visits. He had a remote cholecystectomy. - Past Medical History (1) Chronic pancreatitis Status: Chronic (2) Depression Status: Chronic (3) Illicit drug use Status: Chronic (4) Hepatitis C Status: Resolved Past Medical History - Allergies and Home Meds Allergies/Adverse Reactions: Allergies NSAIDS (Non-Steroidal Anti-Inflamma Adverse Reaction (Verified 02/28/19 01:43) Nausea SEA FOOD Allergy (Uncoded 02/28/19 01:43) Anaphylaxis Primary Care Physician: Leon Leung MD [CONSULTING PHYSICIAN] - As soon as possible Surgical History: cholecystectomy, - - Unknown, patient is intubated at the time of my exam. Smoking Status: Current every day smoker - Family History Maternal Family History: Reports: - - Could not obtain, patient is intubated Review of Systems General: Reports: Malaise. Denies: Chills, Fever, Sweats Eyes: Denies: Visual changes - bilaterally, Diplopia ENT: Denies: Rhinorrhea, Sore throat Cardiovascular: Denies: Chest pain, Palpitations Respiratory: Denies: Dyspnea, Cough, Dyspnea on exertion Gastrointestinal: Reports: Abdominal pain, Nausea, Vomiting. Denies: Diarrhea, Melena, Hematochezia Genitourinary: Denies: Dysuria, Hematuria, Frequency Musculoskeletal: Denies: Back pain, Swelling, Extremity Pain Skin: Denies: Rash, Wounds Neurological: Denies: Headache, Weakness, Numbness Physical Exam Vital Signs/Narrative: Vital Signs Temp Pulse Resp BP Pulse Ox 02/28/19 01:38 98.9 F 107 H 18 165/118 H 100 Inital Vital Signs reviewed: Yes General: Well nourished, Well developed, No Acute Distress Head: Normocephalic, Atraumatic Eyes: Perrl, EOMI ENT: Moist mucous membranes, No rhinorrhea Neck: Supple, Nontender Cardiovascular: Regular rate, Regular rhythm, No murmurs Respiratory: No distress, CTA bilaterally, Chest nontender Abdomen: Soft, Nondistended, Normal bowel sounds, Tender - epigastric only. Negative for: Guarding, Rebound tenderness Back: Nontender, Normal Inspection. Negative for: CVA tenderness Extremities: Nontender, No edema Skin: Normal color, No rash, No Trauma Neurological: Alert, Oriented x3, Cranial nerves II-XII grossly intact, Normal Strength, Normal Sensation, Normal Gait Psychological: Normal Mood, Agitated Diagnostic/Tx/Re-eval Laboratory Tests 02/28/19 Range/Units 02:29 Lipase 212 (73-393) U/L - Medical Decision Making Patient was treated with morphine 10 mg including Phenergan, IV fluids. On reevaluation he is improved but complaining because the pain is still there. I advised him that I will not be able to take his pain away completely from this. He needs to be on a clear liquid diet. He was given discharge instructions describing this and I advised him to read them. He was also given GI to follow- up with as before. ED Disposition - Plan for ED Patient: Disposition: Home or Assisted Living Diagnosis: Chronic pancreatitis, Epigastric pain Instructions: Chronic Pancreatitis, DIET, Clear Liquid Referrals: Leon Leung MD [CONSULTING PHYSICIAN] - As soon as possible
[2019-02-28 04:04] VITALS: RESP 15
== END 2019-02-28 04:09 | disposition home or self-care (01) ==
PROVIDERS: Emergency Provider Emergency Medicine; Family Provider Family Medicine; PCP Family Medicine
DX: K86.1 Other chronic pancreatitis (principal); F32.9 Major depressive disorder, single episode, unspecified; F17.200 Nicotine dependence, unspecified, uncomplicated; Z88.6 Allergy status to analgesic agent; Z86.19 Personal history of other infectious and parasitic diseases; Z90.49 Acquired absence of other specified parts of digestive tract
CPT/HCPCS: 83690; 96361; 96374; 96375; 99285; J7030; A4216

== ENCOUNTER 2019-03-29 16:51 | Emergency (ER) | payer MEDICAID, SELFPAY ==
[2019-03-29 16:53] VITALS: BP 127/83; PULSE 111; PULSE 115; RESP 17; RESP 19; TEMP 36.6; O2SAT 92; O2SAT 95; BMI 26.4
== END 2019-03-29 18:57 | disposition left against medical advice (07) ==
LOC: ED 17:23
PROVIDERS: Emergency Provider Emergency Medicine; Family Provider Family Medicine; PCP Family Medicine
DX: L08.9 Local infection of the skin and subcutaneous tissue, unspecified (principal); Z53.21 Procedure and treatment not carried out due to patient leaving prior to being seen by health care provider

== ENCOUNTER 2019-04-13 12:46 | Emergency (ER) | payer MEDICAID, SELFPAY ==
[2019-04-13 12:47] VITALS: BP 124/81; PULSE 128; RESP 16; TEMP 36.8; O2SAT 98; BMI 25.4
--- NOTE | 2019-04-13 13:47 | ED.VIS.GEN ---
History of Present Illness Chief Complaint: Cellulitis Informant: Patient Onset: Days Context: Sudden Onset Timing: Continuous Quality: Injury ulnar side distal right thumb over the volar fat pad Location: Pain Current Severity: Mild Maximum Severity: Severe Worsened by: Pressure Relieved by: Nothing Associated Symptoms: Nothing Narrative: Patient is a 49-year-old [id number] male with history of ADHD who presents with remote history of injury distal right thumb on the ulnar side. He presents because of pain and swelling. States the pain is burning. He denies a traumatic fever, murmur, SBE or being immune suppressed. He denies paresthesia, anesthesia or motor weakness. He denies history of diabetes. Prior similar symptoms: No Recent Illness/Hospitalization: No - Past Medical History (1) Chronic pancreatitis Status: Chronic (2) Hepatitis C Status: Resolved (3) Illicit drug use Status: Chronic (4) Smoking addiction Status: Chronic Past Medical History - Allergies and Home Meds Allergies/Adverse Reactions: Allergies NSAIDS (Non-Steroidal Anti-Inflamma Adverse Reaction (Verified 04/13/19 12:48) Nausea SEA FOOD Allergy (Uncoded 04/13/19 12:48) Anaphylaxis Primary Care Physician: Hayes Deluna MD [Primary Care Provider] - Prior records reviewed: Yes Surgical History: cholecystectomy, - Lives: Spouse/ Significant Other Smoking Status: Current every day smoker Alcohol: Occasional Drugs: - - Per old records history of drug abuse - Family History Maternal Family History: Reports: - Review of Systems General: Denies: Chills, Fever, Malaise, Subjective, Sweats, Weight loss, - Eyes: Denies: Visual changes - bilaterally, Blurred Vision - bilaterally Cardiovascular: Denies: Chest pain, Palpitations, Heart racing Respiratory: Denies: Dyspnea, Cough, Dyspnea on exertion Gastrointestinal: Denies: Nausea, Vomiting Musculoskeletal: Reports: Swelling, Extremity Pain. Denies: Myalgias, Arthralgias, Neck pain, Back pain Skin: Reports: Wounds. Denies: Rash, Abscess, Abrasions Neurological: Denies: Weakness, Parasthesia, Numbness Hematologic: Denies: Easy bruising, Easy bleeding Allergy: Denies: Uticaria, Swelling of the mouth Physical Exam Vital Signs/Narrative: Vital Signs Temp Pulse Resp BP Pulse Ox 04/13/19 12:47 98.2 F 128 H 16 124/81 H 98 Inital Vital Signs reviewed: Yes General: Well nourished, Well developed, No Acute Distress Head: Normocephalic, Atraumatic Eyes: Perrl, EOMI. Negative for: Pale conjunctiva, Scleral icterus ENT: Negative for: Moist mucous membranes, No rhinorrhea, TM's clear Cardiovascular: Regular rate, Regular rhythm, No murmurs, Normal S1, Normal S2 Respiratory: No distress, CTA bilaterally, Chest nontender Abdomen: Soft, Nontender, Nondistended, Normal bowel sounds Extremities: Tenderness Skin: Normal color, No rash, Trauma. Negative for: Cyanosis, Diaphoresis, Jaundice, No Trauma Neurological: Alert, Oriented x3, Cranial nerves II-XII grossly intact, Normal Strength, Normal Sensation Psychological: Normal affect, Normal Mood Diagnostic/Tx/Re-eval - Medical Decision Making Patient with felon to the right thumb. Will anesthetize thumb and perform incision and drainage. Patient is seen Dr. Samson Soto he was referred to follow-up with him for check in 2 to 3 days. Procedures Procedure(s): The thumb was anesthetized with metacarpal block. Incision was made. There was bloody purulent drainage noted. Blunt dissection was undertaken. The swelling has improved. ED Disposition - Plan for ED Patient: Disposition: Home or Assisted Living Diagnosis: Felon of digit Instructions: ABSCESS, Incision and Drainage Prescriptions: Clindamycin HCl [Cleocin] 300 mg PO Q6H #20 cap Prescription Printed Referrals: Hayes Deluna MD [Primary Care Provider] - Samson Soto MD [STAFF PHYSICIAN] - 2 Days for wound check
[2019-04-13] MEDS: Ibuprofen 600 MG Tablet PO (14:18)
[2019-04-13] MEDS: HYDROcodone Bitartrate/Apap 5/325 Tablet PO (14:19)
[2019-04-13 14:29] VITALS: TEMP 36.6
[2019-04-13] MEDS: Clindamycin HCl 150 MG Capsule 300 MG PO (15:56)
[2019-04-13 16:05] VITALS: PULSE 92; RESP 16; O2SAT 98
== END 2019-04-13 16:09 | disposition home or self-care (01) ==
PROVIDERS: Emergency Provider Emergency Medicine; Family Provider Family Medicine; PCP Family Medicine
DX: L03.011 Cellulitis of right finger (principal); K86.1 Other chronic pancreatitis; F90.9 Attention-deficit hyperactivity disorder, unspecified type; F17.200 Nicotine dependence, unspecified, uncomplicated; Z88.6 Allergy status to analgesic agent; Z86.19 Personal history of other infectious and parasitic diseases; Z90.49 Acquired absence of other specified parts of digestive tract
CPT/HCPCS: 26011; 99283

== ENCOUNTER 2019-05-04 02:40 | Emergency (ER) | payer MEDICAID, SELFPAY ==
[2019-05-04 02:42] VITALS: BP 124/94; PULSE 119; RESP 20; TEMP 36.4; O2SAT 95; BMI 25.0
[2019-05-04 02:47] VITALS: O2SAT 97
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
[2019-05-04 03:17] VITALS: BP 124/94; PULSE 105; RESP 20; O2SAT 97
[2019-05-04] MEDS: cycloBENZAPRine HCl 10 MG Tablet PO (03:17)
[2019-05-04] MEDS: Naproxen 500 MG Tablet PO (03:17)
== END 2019-05-04 03:39 | disposition home or self-care (01) ==
LOC: ED 03:21
PROVIDERS: Emergency Provider Emergency Medicine; PCP Family Medicine; Referring Provider Family Medicine
DX: S39.012A Strain of muscle, fascia and tendon of lower back, initial encounter (principal); V89.2XXA Person injured in unspecified motor-vehicle accident, traffic, initial encounter; Y93.9 Activity, unspecified; Y92.410 Unspecified street and highway as the place of occurrence of the external cause; Y99.9 Unspecified external cause status; S62.91XD Unspecified fracture of right hand, subsequent encounter for fracture with routine healing; X58.XXXD Exposure to other specified factors, subsequent encounter; F17.200 Nicotine dependence, unspecified, uncomplicated; Z88.6 Allergy status to analgesic agent; Z90.49 Acquired absence of other specified parts of digestive tract
CPT/HCPCS: 99283

== ENCOUNTER 2019-06-09 16:52 | Emergency (ER) | payer MEDICAID, SELFPAY ==
[2019-06-09 16:55] VITALS: BP 147/106; PULSE 72; RESP 18; TEMP 36.6; O2SAT 100; BMI 26.4
[2019-06-09 18:44] LABS: Absolute Neutrophil Count 7.5 X10^3/uL (2.0-7.7); Basophil# 0.05 X10^3/uL; Basophil% 0.6 % (0-1); Eosinophil# 0.02 X10^3/uL; Eosinophils% 0.2 % (0-5); Hematocrit 46.6 % (40-54); Hemoglobin 15.3 g/dL (13.0-16.5); Lymphocyte % 9.2 % (19-41); Mean Corp Hgb Conc 32.8 g/dL (32-36); Mean Corpuscular Hgb 30.8 pg (27.0-32.0); Mean Platelet Vol. 8.8 fl (6.2-12.0); Monocyte# 0.32 X10^3/uL; Monocyte% 3.7 % (0-10); NRBC Flagged by Analyzer 0 % (0-5); Neutrophil # 7.51 X10^3/uL (2.7-7.7); Neutrophil % 86.1 % (47-70); Platelet Count 271 K/mm3 (150-450); RBC Distribution Width CV 13.1 % (11.6-14.6); RBC Distribution Width SD 44.7 fl (35.1-43.9); Red Blood Count 4.96 M/mm3 (4.6-6.2); White Blood Count 8.7 K/mm3 (4.4-11.0)
[2019-06-09 18:46] LABS: AST(SGOT) 19 U/L (15-37); Alanine Aminotransfer ALT/SGPT 27 U/L (16-61); Albumin, Serum 3.8 g/dL (3.2-5.0); Alkaline Phosphatase 106 U/L (45-117); Anion Gap 5 (5-15); BUN 11 mg/dL (7-18); BUN/Creat Ratio 11.9 RATIO (10-20); Bilirubin, Direct 0.17 mg/dL (0.00-0.30); Calcium,Total 9.8 mg/dL (8.5-10.1); Chloride 108 mmol/L (98-107); Creatinine, Serum 0.92 mg/dL (0.70-1.30); EST Glomerular Filtration Rate 92 mL/min (>60); Est Glom Filt Rate - Afr Amer 112 mL/min (>60); Estimated Creatinine Clearance 109.77 ml/min; Globulin 3.9 g/dL (2.2-4.2); Glucose 120 mg/dL (74-106); Lipase 100 U/L (73-393); Potassium 3.8 mmol/L (3.5-5.1); Protein, Total 7.7 g/dL (6.4-8.2); Sodium Level 141 mmol/L (136-145)
--- NOTE | 2019-06-09 18:50 | ED.DCSUM_ITS ---
History of Present Illness Chief Complaint: Nausea/Vomiting Informant: Patient Onset: Today Current Severity: Moderate Maximum Severity: Moderate Narrative: Patient presents with epigastric abdominal pain, nausea, vomiting, and diarrhea that started earlier today. He denies fever. He does have a history of hepatitis C as well as chronic pancreatitis. He has had cholecystectomy in the past. He has been seen for similar in the past. He states he has not been able to see a GI specialist. He does report that he is taking his medications as scheduled. - Past Medical History (1) Chronic pancreatitis Status: Chronic (2) Depression Status: Chronic (3) Hepatitis C Status: Resolved Past Medical History - Allergies and Home Meds Allergies/Adverse Reactions: Allergies NSAIDS (Non-Steroidal Anti-Inflamma Adverse Reaction (Verified 06/09/19 16:57) Nausea SEA FOOD Allergy (Uncoded 06/09/19 16:57) Anaphylaxis Primary Care Physician: Hayes Deluna MD [Primary Care Provider] - Prior records reviewed: Yes Surgical History: cholecystectomy, - Smoking Status: Current every day smoker - Family History Maternal Family History: Reports: - Review of Systems General: Denies: Chills, Fever Eyes: Denies: Visual changes - bilaterally ENT: Denies: Bilateral ear pain Cardiovascular: Denies: Chest pain Respiratory: Denies: Dyspnea, Cough Gastrointestinal: Reports: Abdominal pain, Nausea, Vomiting, Diarrhea Genitourinary: Denies: Dysuria Musculoskeletal: Denies: Extremity Pain Skin: Denies: Rash Allergy: Denies: Uticaria Physical Exam Vital Signs/Narrative: Vital Signs Temp Pulse Resp BP Pulse Ox 06/09/19 16:55 97.9 F 72 18 147/106 H 100 Inital Vital Signs reviewed: Yes General: Well nourished, Well developed, - - Resting with eyes closed will answer questions appropriately. Head: Normocephalic ENT: - - Adentulous Cardiovascular: Regular rate, Regular rhythm Respiratory: No distress, CTA bilaterally Abdomen: Soft, Tender - Mild tenderness outpatient epigastric region. No guarding or rebound., Hypoactive bowel sounds Extremities: Nontender Skin: Normal color, No rash Neurological: Alert, Oriented x3 Psychological: Normal affect Diagnostic/Tx/Re-eval Laboratory Results 06/09/19 06/09/19 18:20 18:20 WBC 8.7 RBC 4.96 Hgb 15.3 Hct 46.6 MCV 94.0 MCH 30.8 MCHC 32.8 RDW Std Deviation 44.7 H RDW Coeff of Yaya 13.1 Plt Count 271 MPV 8.8 Immature Gran % (Auto) 0.200 Neut % (Auto) 86.1 H Lymph % (Auto) 9.2 L [place] % (Auto) 3.7 Eos % (Auto) 0.2 Baso % (Auto) 0.6 Absolute Neuts (auto) 7.5 Absolute Lymphs (auto) 0.80 L Nucleated RBC % 0 Sodium 141 Potassium 3.8 Chloride 108 H Carbon Dioxide 28.0 Anion Gap 5 BUN 11 Creatinine 0.92 Estim Creat Clear Calc 109.77 Est GFR (MDRD) Af Amer 112 Est GFR (MDRD) Non-Af 92 BUN/Creatinine Ratio 11.9 Glucose 120 H Calcium 9.8 Total Bilirubin 0.60 Direct Bilirubin 0.17 AST 19 ALT 27 Alkaline Phosphatase 106 Total Protein 7.7 Albumin 3.8 Globulin 3.9 Lipase 100 - Medical Decision Making Patient was given Zofran, IV fluids, Protonix. I was notified by nursing staff for short time later that he wanted his IV out he was leaving. I have walked past the room multiple times patient sitting in a bedside chair. When I went back to discuss his test results with him he states he is ready to go but he still complaining abdominal pain. Patient will be given Bentyl but I will not write him for narcotics. Prescription for Bentyl as well as Zofran will be sent to the pharmacy for him. He is again referred to GI for follow-up. ED Disposition - Plan for ED Patient: Disposition: Home or Assisted Living Diagnosis: Epigastric pain Instructions: EPIGASTRIC PAIN (Uncertain cause) Prescriptions: Dicyclomine HCl [Bentyl] 20 mg PO TIDAC #20 cap Transmission Status: Pending to [facility] [place] Ondansetron [Zofran Odt] 4 mg PO Q8H PRN PRN #10 tab PRN Reason: Nausea Transmission Status: Pending to [facility] [place] Referrals: Hayes Deluna MD [Primary Care Provider] - 1-2 Weeks Andriy Melton MD [NON-STAFF] - As soon as possible
[2019-06-09] MEDS: 0.9% Normal Saline 1,000 ML 1000 ML IV (19:03)
[2019-06-09] MEDS: Ondansetron 4 MG/2 ML Vial IV (19:05)
--- NOTE | 2019-06-09 20:05 | ED.RN ---
CHECKED ON PT HE IS STILL IN THE ROOM. PT STATES HE IS LEAVING BUT MOVING SLOW. AWARE.
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
[2019-06-09] MEDS: Dicyclomine 10 MG Capsule 20 MG PO (21:48)
[2019-06-09 21:54] VITALS: BP 167/91; PULSE 89; RESP 16; O2SAT 97
== END 2019-06-09 21:54 | disposition home or self-care (01) ==
PROVIDERS: Emergency Provider Emergency Medicine; PCP Family Medicine
DX: R10.13 Epigastric pain (principal); R11.2 Nausea with vomiting, unspecified; R19.7 Diarrhea, unspecified; K86.1 Other chronic pancreatitis; B19.20 Unspecified viral hepatitis C without hepatic coma; F32.9 Major depressive disorder, single episode, unspecified; F17.200 Nicotine dependence, unspecified, uncomplicated; Z79.899 Other long term (current) drug therapy; Z88.6 Allergy status to analgesic agent; Z90.49 Acquired absence of other specified parts of digestive tract
CPT/HCPCS: 80048; 80076; 83690; 85025; J7030; A4216; J2405

== ENCOUNTER 2019-06-09 22:25 | Observation (INO) | payer MEDICAID, SELFPAY ==
[2019-06-09 16:55] VITALS: BMI 26.4
[2019-06-09 22:26] VITALS: BP 146/108; PULSE 110; RESP 18; TEMP 36.3; O2SAT 99; BMI 23.4
[2019-06-09 23:47] LABS: Alcohol, Blood (Medical)-Serum < 3.0 mg/dL
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
--- NOTE | 2019-06-10 00:46 | ED.DCSUM_ITS ---
- ER Visit Summary Date of Service: 06/10/19 Chief Complaint: Wants detox History of Present Illness: The patient is a 49 M who is here and wants detox. He was seen here earlier today because he was detoxing from heroin and methamphetamines. He then left because he wanted to smoke. He is now back because he wants detox. He has been using heroin and meth for years. He is also been using cocaine recently as well. His last use was about 5 days ago. He has had nausea vomiting with diarrhea. He also admits to abdominal pain. No fevers. Physical Examination: Vital signs reviewed. HEENT exam unremarkable. Heart is regular rate and rhythm without murmurs. Lungs are clear to auscultation. Abdomen is soft and nontender. Extremities reveal no edema. Skin exam normal. Neurologic exam normal. Test Results: Alcohol level negative. Toxicology screen pending. CBC and CMP from earlier in the day is unremarkable Emergency Department Course and Treatment: Patient was discussed with the hospitalist for admission for detoxification. Treatment Plan: [] Disposition: Admit Impression: Polysubstance abuse This note was generated with [employer] dictation software. It may contain incorrect words, spelling, and punctuation that were not noted in review of the chart prior to signing ED Disposition - Plan for ED Patient: Referrals: Hayes Deluna MD [Primary Care Provider] -
[2019-06-10 01:00] VITALS: BP 159/106; PULSE 127; RESP 18; TEMP 36.6; O2SAT 97
[2019-06-10 01:29] VITALS: BP 142/106; PULSE 99; RESP 18; TEMP 36.4; O2SAT 100
[2019-06-10 02:00] VITALS: BMI 23.1
--- NOTE | 2019-06-10 02:16 | NURSING ---
Pt is very drowsy. When he wakes up he answers questions appropriately. He advised Alfonzo BLACK and this RN that it was very irritating to be asked all these questions. Bed exit on. Will finish admission when pt is more awake.
[2019-06-10] MEDS: Lactated Ringers 1,000 ML 125 ML IV (03:40)
--- NOTE | 2019-06-10 03:58 | NURSING ---
pt got up and went to the br he said he's gong to be sick. Rn just inserted pts IV and went to get nausea meds. found pt in the shower with his IV pole and Iv line connected. told pt he cant just go shower because of risk for falling and Iv might come off. pt non compliant with care and inappropriate with staff.
[2019-06-10] MEDS: Ondansetron ODT 4 MG Tablet PO (04:08)
[2019-06-10 04:12] VITALS: BMI 23.1
[2019-06-10 05:30] VITALS: BP 156/98; PULSE 100; RESP 18; TEMP 36.6; O2SAT 99
[2019-06-10] MEDS: Buprenorphine HCl 2 MG TAB.SUBL SL ×3 (06:20→21:53)
[2019-06-10] MEDS: Dicyclomine 10 MG Capsule 20 MG PO ×3 (06:20→15:37)
[2019-06-10] MEDS: Mag Hydrox/Al Hydrox/Simeth 30 ML UDC PO ×2 (06:25→19:49)
[2019-06-10 08:50] LABS: HIV - WCH Non-Reactive (Nonreactive)
[2019-06-10 10:00] VITALS: BP 134/91; PULSE 109; RESP 18; TEMP 36.5; O2SAT 98
[2019-06-10] MEDS: lamoTRIgine 25 MG Tablet PO ×2 (10:52→21:52)
--- NOTE | 2019-06-10 10:52 | ADDICTION ---
This social sciences chair attempted to meet with patient in his room. Patient was drowsy and asked this typewriter ribbon winder to return another time. This typewriter ribbon winder attempted to engage with client, however, he refused to meet at this time. This social sciences chair will attempt to meet with patient tomorrow 06/11/2019.
[2019-06-10] MEDS: Methocarbamol 750 MG Tablet PO ×2 (10:58→17:12)
[2019-06-10] MEDS: chlordiazePOXIDE 25 MG Capsule PO ×2 (10:59→17:12)
[2019-06-10 15:00] VITALS: BP 120/96; PULSE 113; RESP 18; TEMP 36.6; O2SAT 96
[2019-06-10] MEDS: proCHLORPERazine 5 MG Tablet 10 MG PO (15:00)
[2019-06-10] MEDS: cloNIDine HCl 0.1 MG Tablet PO ×2 (15:36→20:02)
[2019-06-10 17:51] LABS: Amphetamine Urine VISTA POSITIVE (<1000 ng/mL); Barbiturate Urine VISTA NEGATIVE (< 200 ng/mL); Benzodiazepine Urine VISTA NEGATIVE (< 200 ng/mL); Cocaine Urine VISTA NEGATIVE (< 300 ng/mL); Ecstacy Urine VISTA NEGATIVE (< 500 ng/mL); Methadone Urine VISTA NEGATIVE (< 300 ng/mL); PCP Urine VISTA NEGATIVE (< 25 ng/mL); THC Urine VISTA POSITIVE (< 50 ng/mL); Vista UDS pH Range 7
--- NOTE | 2019-06-10 19:31 | NURSING ---
pt had called out for cleso, when this nurse went in w/med, pt was resting with eyes closed, said his name 3 times w/n response
[2019-06-10 19:52] VITALS: BP 129/90; PULSE 101; RESP 18; TEMP 36.3; O2SAT 97
[2019-06-11 00:32] VITALS: BP 129/89; PULSE 87; RESP 18; TEMP 36.4; O2SAT 95
[2019-06-11] MEDS: Pantoprazole Sodium 40 MG Tablet PO (00:37)
[2019-06-11] MEDS: Methocarbamol 750 MG Tablet PO ×2 (00:38→06:27)
[2019-06-11 05:06] LABS: HEPATITIS B SURFACE AG Negative (Negative); Hepatitis A AB, Total Positive (Negative); Hepatitis A IgM Antibody Negative (Negative); Hepatitis B Core AB IgM Negative (Negative); Hepatitis B Core Ab Total Negative (Negative)
[2019-06-11 06:09] VITALS: BP 126/87; PULSE 94; RESP 16; TEMP 36.5; O2SAT 98
[2019-06-11] MEDS: Dicyclomine 10 MG Capsule 20 MG PO (06:16)
[2019-06-11] MEDS: Buprenorphine HCl 2 MG TAB.SUBL SL (06:17)
[2019-06-11 09:19] LABS: Hep B Surface Antibodies Reactive (.)
[2019-06-11 09:21] LABS: Hepatitis C Ab >11.0 s/co ratio (0.0-0.9)
--- NOTE | 2019-06-11 09:46 | NURSING ---
Walking in [place], getting drink of water. Then went back to room to talk to someone from [facility] that is here. Pt was talking on the phone at the elementary secretary desk b/c he states [facility] and wanted to talk to them.
--- NOTE | 2019-06-11 10:14 | NURSING ---
Pt out to nurses' station demanding to use phone to call [facility] as he needs his medication for adhd. Pt used workers compensation legal secretary phone with supervision and returned to room. Pt returned to nurses's station about 10 minutes later stating that he needs inside of the tote for his cell phone because he needs a few numbers. Pt notified that he cannot get into tote during stay. Patient states, yes, I can because I am leaving anyway. intake worker from 180 present and states she will go in to attempt to deescalate. Duane with security called and notified of situation and came directly to unit. olga Trejo RN notified. Maya and intake worker from 180 in with pt attempting to deescalate and to encourage to finish program. Pt refused and AMA forms given to pt by SOFIA Trejo. Pt getting dressed at this time- preparing to leave AMA.
--- NOTE | 2019-06-11 10:31 | NURSING ---
Pt left AMA. Pt was upset. Was told he would only stay 3 days and was getting agitated b/c he needed his phone to call a girl to make sure his clothes were safe. Those clothes are all I got. This nurse reminded him of the contract that he signed and encouraged pt to stay despite wanting his phone. This nurse offered him prn's to stay. Refused. Staff from [facility] was also present and encouraged him to stay. Pt would not , signed AMA papers. Personal belongings given to pt. As he walked out with Jefferson, Digitizer asked if he had all his belongings and pt stated yes. Pt would not let me perform his physical assessment but let me take his vitals.
[2019-06-11 10:34] VITALS: BP 130/91; PULSE 88; RESP 20; TEMP 36.7; O2SAT 98
--- NOTE | 2019-06-13 16:02 | PCM.DC.SUM ---
Discharge Date and Diagnosis Date of Admission: 06/10/19 Date of Discharge: 06/11/19 - Primary Discharge Diagnosis #1 acute opiate withdrawal #2 heroin addiction #3 polysubstance abuse #4 noncompliance with medical regimen #5 chronic hepatitis C - Secondary Discharge Diagnosis Chronic Problems Chronic pancreatitis (Chronic) Hepatitis C (Chronic) Polysubstance abuse (Chronic) IV drug abuse (Chronic) Heroin abuse (Chronic) Methamphetamine abuse (Chronic) Cocaine abuse (Chronic) Tobacco use (Chronic) Depression (Chronic) Illicit drug use (Chronic) Smoking addiction (Chronic) Hospital Course and Treatment Operations: None Procedures: None Summary of Care Provided: The patient is a 49 year old M was seen in the emergency room at [facility] with chief complaint of acute opiate withdrawal, patient has a history of polysubstance abuse including IV heroin. Patient was admitted to [place] [id number], medications were administered per opiate withdrawal protocol, the day after the patient was admitted, he became upset because he could not use his cell phone in the room and demanded to be discharged. Patient was discharged AGAINST MEDICAL ADVICE Patient was seen and examined on 06/11/2019: On examination he appeared upset and anxious. Vital signs as documented. Skin warm and dry and without overt rashes. Neck without JVD. Lungs clear. Heart exam notable for regular rhythm, normal sounds and absence of murmurs, rubs or gallops. Abdomen unremarkable and without evidence of organomegaly, masses, or abdominal aortic enlargement. Extremities nonedematous. Neuro: Cranial nerves II through XII are grossly intact, no focal motor deficits were noted, sensation to light touch and pinprick intact. Psych: Patient is alert and oriented x3, he does appear agitated however - Physical Exam Vitals/I&O's: Vital Signs Temp Pulse Resp BP Pulse Ox 98.0 F 88 20 H 130/91 H 98 06/11/19 10:34 06/11/19 10:34 06/11/19 10:34 06/11/19 10:34 06/11/19 10:34 Oxygen Delivery Method Room Air Weight: 77.2 kg Body Mass Index (BMI) 23.1 Intake and Output for Last 24 Hours 06/11/19 06/12/19 06/13/19 23:59 23:59 23:59 Intake Total 600 / 600 Balance 600 / 600 Home Medications: Medications to take at Discharge Lamotrigine [Lamotrigine ER] 25 mg PO BID 06/09/19 Omeprazole [Prilosec] 20 mg PO DAILY 06/09/19 Ondansetron [Zofran Odt] 4 mg PO Q8H PRN PRN #10 tab 06/09/19 Pantoprazole Sodium [Protonix] 40 mg PO DAILY 06/09/19 Dicyclomine HCl [Bentyl] 20 mg PO TIDAC 06/10/19 Naproxen [Naprosyn] 500 mg PO BID 06/10/19 Primary Care Physician: Hayes Deluna MD [Primary Care Provider] - Disposition: Against Medical Advice Minutes spent on discharge:: 30 Patient Condition:: Stable Medical Necessity - Tobacco Use Smoking Status: Current every day smoker Tobacco Use: Cigarettes Meaningful Use Info Meaningful Use Diagnoses (Choose all that apply): None applicable Inpatient E&M: 40067 [facility]osp
== END 2019-06-11 10:30 | disposition left against medical advice (07) | DRG 770 ==
LOC: ED 23:10 → MS3 06-10 07:07
PROVIDERS: Admitting Provider Family Medicine; Emergency Provider Emergency Medicine; PCP Family Medicine; Visit Provider Internal Medicine
DX: F11.23 Opioid dependence with withdrawal (principal); F17.210 Nicotine dependence, cigarettes, uncomplicated; B18.2 Chronic viral hepatitis C; K86.1 Other chronic pancreatitis; F15.10 Other stimulant abuse, uncomplicated; F14.10 Cocaine abuse, uncomplicated; Z91.19 Patient's noncompliance with other medical treatment and regimen; Z79.899 Other long term (current) drug therapy; F31.9 Bipolar disorder, unspecified; F90.9 Attention-deficit hyperactivity disorder, unspecified type; F41.9 Anxiety disorder, unspecified; Z90.49 Acquired absence of other specified parts of digestive tract; Z88.6 Allergy status to analgesic agent
CPT/HCPCS: 36415; 80048; 80076; 80307; 80320; 83690; 85025; 86703; 86704; 86705; 86706; 86708; 86709; 86803; 87340; 96360; 96361; 96365; 96375; 97802; 99218; 99283; 99285; 99406; H0012; J7030; J7120; A4216; G0378; G0480; J2405

== ENCOUNTER 2019-07-20 20:37 | Emergency (ER) | payer MEDICAID, SELFPAY ==
[2019-07-20 20:39] VITALS: BP 142/103; PULSE 78; RESP 12; TEMP 36.4; O2SAT 100; BMI 22.1
[2019-07-20 20:47] VITALS: PULSE 109; RESP 20; O2SAT 100
--- NOTE | 2019-07-20 21:04 | EKG12_ITS ---
Test Reason : ABD PAIN Blood Pressure : / mmHG Vent. Rate : 092 BPM Atrial Rate : 092 BPM P-R Int : 214 ms QRS Dur : 084 ms QT Int : 368 ms P-R-T Axes : 081 074 068 degrees QTc Int : 455 ms Sinus rhythm with marked sinus arrhythmia with 1st degree A-V block Otherwise normal ECG Confirmed by TONO DRISCOLL, ALEXYS ([id number]), acquisition editor JEOVANNY KWON ([id number]) on 07/26/2019 10:51:51 AM Referred By: JAD Confirmed By:NOA POWER MD
[2019-07-20] MEDS: 0.9% Normal Saline 1,000 ML 1000 ML IV (21:26)
[2019-07-20] MEDS: proMETHazine 25 MG/ML Syringe 12.5 MG IV (21:27)
[2019-07-20] MEDS: Dicyclomine 20 MG/2 ML Vial IM (21:28)
[2019-07-20 21:42] VITALS: BP 115/84; PULSE 96; RESP 20; TEMP 36.7; O2SAT 97
[2019-07-20 21:50] LABS: Absolute Lymphocyte Count 1.59 X10^3/uL (0.83-4.51); Absolute Neutrophil Count 6.4 X10^3/uL (2.0-7.7); Basophil# 0.04 X10^3/uL; Basophil% 0.4 % (0-1); Eosinophil# 0.04 X10^3/uL; Eosinophils% 0.4 % (0-5); Hematocrit 55.3 % (40-54); Lymphocyte # 1.59 X10^3/ul (4.0); Lymphocyte % 17.9 % (19-41); Mean Corp Hgb Conc 33.8 g/dL (32-36); Mean Corpuscular Hgb 31.3 pg (27.0-32.0); Mean Corpuscular Volume 92.6 fL (80-94); Mean Platelet Vol. 8.9 fl (6.2-12.0); Monocyte# 0.79 X10^3/uL; Monocyte% 8.9 % (0-10); NRBC Flagged by Analyzer 0 % (0-5); Neutrophil # 6.39 X10^3/uL (2.7-7.7); Platelet Count 288 K/mm3 (150-450); RBC Distribution Width CV 12.4 % (11.6-14.6); RBC Distribution Width SD 42.4 fl (35.1-43.9); Red Blood Count 5.97 M/mm3 (4.6-6.2); White Blood Count 8.9 K/mm3 (4.4-11.0)
[2019-07-20 21:58] LABS: ERROR FUNCTION FLAG YES; Hemoglobin 18.7 g/dL (13.0-16.5); POSITIVE COUNT NO; POSITIVE DIFFERENTIAL NO; POSITIVE MORPHOLOGY NO
[2019-07-20 21:59] LABS: Differential Indicated SCAN CRITERIA MET
[2019-07-20 22:16] LABS: AST(SGOT) 47 U/L (15-37); Alanine Aminotransfer ALT/SGPT 38 U/L (16-61); Albumin, Serum 4.5 g/dL (3.2-5.0); Alkaline Phosphatase 112 U/L (45-117); Anion Gap 10 (5-15); BUN 30 mg/dL (7-18); Calcium,Total 10.5 mg/dL (8.5-10.1); Chloride 89 mmol/L (98-107); Creatinine, Serum 1.25 mg/dL (0.70-1.30); EST Glomerular Filtration Rate 65 mL/min (>60); Est Glom Filt Rate - Afr Amer 79 mL/min (>60); Estimated Creatinine Clearance 75.13 ml/min; Globulin 4.4 g/dL (2.2-4.2); Glucose 104 mg/dL (74-106); Lipase 100 U/L (73-393); Potassium 2.8 mmol/L (3.5-5.1); Protein, Total 8.9 g/dL (6.4-8.2); Sodium Level 131 mmol/L (136-145)
[2019-07-20 22:17] LABS: Lactic Acid 2.9 mmol/L (0.4-1.9)
[2019-07-20 22:20] LABS: Anisocytosis RARE; Macrocytosis RARE; Platelet Estimate ADEQUATE (ADEQ); Red Cell Morphology N CHROM NORMAL (NORM C&C)
--- NOTE | 2019-07-20 22:42 | CT_ITS ---
We are attempting to reach an attending provider to discuss findings. An addendum with communication details will be sent when the communication is complete. STUDY: CT ABDOMEN AND PELVIS WITH CONTRAST REASON FOR EXAM: Male, 49 years old. Abdomen pain and vomiting x 1 week -- hx:copd,hep c,gerd and cholecystectomy RADIATION DOSAGE (If Supplied By Facility): CTDIvol = ( 11.57 ) mGy, DLP = ( 708.25 ) mGycm TECHNIQUE: Transaxial images were obtained from the dome of the diaphragm to the symphysis pubis without oral contrast. IV 100mL Isovue-370 was administered. Sagittal and coronal images were reconstructed. Individualized dose optimization techniques were used for this CT. COMPARISON: September 03, 2018 CT scan abdomen and pelvis FINDINGS: The visualized lung bases are unremarkable. The visualized portions of the heart are within normal limits. There is minimal intrahepatic ductal dilatation. There is trace extrahepatic ductal dilatation. There are surgical clips in the gallbladder fossa consistent with a prior cholecystectomy. Normal spleen. Normal pancreas. Normal bilateral adrenal glands. Normal right kidney. There is a 3 mm stone in left kidney. There is a 5.9 mm stone in the left kidney. There is a thickened appearance of the distal esophagus. The stomach is persistently distended there is a mildly prominent appearance of the repair. Normal small intestine. There is abundant stool in the colon from the cecum to the rectum. There is diverticulosis without visualized diverticulitis. The appendix is visualized and appears normal. The aorta is partially calcified. Normal inferior vena cava. Normal retroperitoneum. There is a partially decompressed appearance of the bladder. There are prostatic calcifications. Normal abdominal wall. There is a recent appearing fracture injury at the level L1 with fragmentation and a fracture through the vertebral body from anterior to posterior without extension into the posterior elements. There is minimal surrounding edema. There is at least 50% loss of height since the prior study. CT/Abdomen/Pelvis W IV Cont ONLY IMPRESSION: Persistently distended stomach with greater wall thickening of the rib cage suspicious for gastritis. Findings also suspicious for mild esophagitis. Status post cholecystectomy Moderate constipation. Partially decompressed appearance of the bladder with minimal wall thickening. Recommend correlation with laboratory values. No evidence of appendicitis. Stable left renal stones. Recent appearing fracture at the level of L1 with 50% loss of height with the fracture extending in a transverse fashion through the mid aspect of the vertebral body underlying the inferior endplate without appearing to involve the posterior elements. Recommend correlation with any trauma history and follow-up MRI when clinically appropriate. Electronically Signed: Niki Pope MD at 0:04 EDT Tel , Service support ,
--- NOTE | 2019-07-20 23:13 | ED.RN ---
PT refusing to drink contrast. aware.
--- NOTE | 2019-07-20 23:45 | ED.DCSUM_ITS ---
- ER Visit Summary Date of Service: 07/20/19 Chief Complaint: [Abdominal pain and vomiting] History of Present Illness: The patient is a 49 M [into the emergency department with abdominal pain that started about a week ago. Patient complains of vomiting for the last for 5 days. Patient states that he feels like his pancreatitis might be flaring up. Patient has history of IV drug abuse including heroin but states he has not used in over a week. Patient was admitted within the last several months for detox from heroin but signed out after 4 days. Patient denies any blood in stool or black tarry stools. He denies any fevers. He denies urinary symptoms. Patient has history of pancreatitis as well as hep C and IV drug abuse.] Physical Examination: [HEENT-PERRLA, EOMI. Cranial nerves II through XII grossly intact. TMs clear. Mucous membranes moist. No adenopathy. Cardiovascular-regular rate and rhythm without murmur or ectopy Lungs-clear to auscultation, chest wall stable without crepitus or subcu emphysema Abdomen-normoactive bowel sounds, soft. Patient has tenderness over the epigastric region with some guarding. There is no rebound, rigidity, or peritoneal signs. Extremities-intact ?4, normal range of motion, normal pulses, atraumatic] Test Results: [EKG obtained arrival shows sinus rhythm with a ventricular rate of 92 bpm with occasional PACs and a first-degree AV block. CBC with differential was normal. Chemistries unremarkable other than as sodium of 131 and a potassium of 2.8. BUN was 30 and creatinine 1.25. Troponin less than 0.015. CT scan of the abdomen pelvis ordered and pending] Emergency Department Course and Treatment: [Given normal saline and Phenergan IV. Patient was given Bentyl 20 mg IM.] Treatment Plan: [Care of patient turned over to evening physician awaiting CT results and final disposition] Disposition: [Pending] Impression: [Abdominal pain Dehydration Hypokalemia Hyponatremia] This note was generated with [employer] dictation software. It may contain incorrect words, spelling, and punctuation that were not noted in review of the chart prior to signing ED Disposition - Plan for ED Patient: Referrals: Hayes Deluna MD [Primary Care Provider] -
--- NOTE | 2019-07-21 00:32 | PCM.HP.STD ---
Problem List (1) Gastritis Status: Acute (2) Esophagitis Status: Acute (3) Chronic pancreatitis Status: Chronic (4) Hepatitis C Status: Chronic Qualifiers: Viral hepatitis chronicity: unspecified (5) Polysubstance abuse Status: Chronic (6) IV drug abuse Status: Chronic (7) Heroin abuse Status: Chronic (8) Methamphetamine abuse Status: Chronic (9) Cocaine abuse Status: Chronic (10) Tobacco use Status: Chronic (11) Hypokalemia Status: Acute (12) Abnormal LFTs (liver function tests) Status: Acute (13) Depression Status: Chronic Qualifiers: Depression Type: major depressive disorder Major depression recurrence: recurrent Active/Remission status: currently active Major depression episode severity: severe Psychotic features: without psychotic features Qualified Code(s): F33.2 - Major depressive disorder, recurrent severe without psychotic features (14) Illicit drug use Status: Chronic (15) Smoking addiction Status: Chronic History of Present Illness Date of Admission: 07/21/19 Chief Complaint: nausea and vomiting The patient is a 49 year old M with a significant history of IV drug use who presents at the emergency department with nausea and vomiting x1 week. Associated with his symptoms is abdominal pain. His pain is located at the epigastric region. He rate his pain as 10 out of 10. Reportedly the last time that he use methamphetamine was about a week ago. Last time he used heroin was about a week ago. He shoots heroin and he snorts methamphetamine. Patient was admitted at hospital 06/10/2019 and discharged on 06/11/2023 acute opioid withdrawal. On that admission he signed AGAINST MEDICAL ADVICE. Past Medical History Past Medical History (Chronic Problems): Chronic Problems Chronic pancreatitis (Chronic) Hepatitis C (Chronic) Polysubstance abuse (Chronic) IV drug abuse (Chronic) Heroin abuse (Chronic) Methamphetamine abuse (Chronic) Cocaine abuse (Chronic) Tobacco use (Chronic) Depression (Chronic) Illicit drug use (Chronic) Smoking addiction (Chronic) Medical History: Medical History (Last Reviewed 07/21/19 @ 01:[address] Art Lange MD) Hepatitis C B19.20 Allergies NSAIDS (Non-Steroidal Anti-Inflamma Adverse Reaction (Verified 07/20/19 20:39) Nausea SEA FOOD Allergy (Uncoded 07/20/19 20:39) Anaphylaxis Home Medications: Ambulatory Orders Medication Instructions Recorded Lamotrigine [Lamotrigine ER] 25 mg PO BID 06/09/19 Omeprazole [Prilosec] 20 mg PO DAILY 06/09/19 Pantoprazole Sodium [Protonix] 40 mg PO DAILY 06/09/19 Dicyclomine HCl [Bentyl] 20 mg PO TIDAC 06/10/19 Famotidine [Pepcid] 20 mg PO BID #28 tab 07/21/19 Ondansetron [Zofran Odt] 4 mg PO Q8H PRN PRN #10 tab 07/21/19 Surgical History: cholecystectomy, - - Bilateral carpal tunnel surgery, right wrist surgery, cholecystectomy. Psychiatric History: Anxiety, Attn. deficit disorder, Bipolar, Depression - Patient is on Depakote and Seroquel....BPD? Smoking Status: Current every day smoker Tobacco Use: Cigarettes - *Family History Maternal History Items: Diabetes, High Cholesterol, Heart Disease, Hypertension Paternal History Items: Diabetes, High Cholesterol, Heart Disease, Hypertension Review of Systems Constitutional: Denies: Chills, Fever, Weight Change HEENT: Denies: Head Aches, Sinus Congestion, Sinus Drainage Cardiovascular: Denies: Chest Pain, Palpitations Respiratory: Denies: Cough, Shortness of breath at rest, Sputum production Gastrointestinal: Reports: Abdominal Pain, Nausea, Vomiting Genitourinary: Denies: Dysuria Musculoskeletal: Denies: Joint Pain, Joint Tenderness Skin: Denies: Rash, Wounds Neurological: Denies: Numbness, Tingling, Focal weakness Psychiatric: Denies: Anxiety, Depression, Homicidal Ideations, Suicidal Ideations Hematologic/ Lymphatic: Denies: Easy Bruising, Easy Bleeding VTE Information - Inpt Only VTE Present on Admission: No VTE Mechan Device Prophylaxis: None VTE Pharm Prophylaxis ordered?: No Reason prophylaxis not ordered:: Treatment Not Indicated - Patient not admitted; will sign out AMA Patient Problems: Active and Suspected Problems (Last Reviewed 07/21/19 @ 01:[address] Art Lange MD) Gastritis (Acute) Esophagitis (Acute) - Physical Exam Vitals/I&O's: Vital Signs Temp Pulse Resp BP Pulse Ox 98.1 F 96 20 H 115/84 H 97 07/20/19 21:42 07/20/19 21:42 07/20/19 21:42 07/20/19 21:42 07/20/19 21:42 Oxygen Delivery Method Room Air Weight: 74.3 kg Body Mass Index (BMI) 22.1 Intake and Output for Last 24 Hours 07/19/19 07/20/19 07/21/19 23:59 23:59 23:59 Intake Total 1000 / 1000 Balance 1000 / 1000 General: Alert, Oriented x3, Cooperative HEENT: Atraumatic, PERRLA, EOMI, Normocephalic Neck: Supple, No JVD, Negative Carotid Bruits Lungs: Clear to auscultation, Normal air movement, No rhonchi, No wheeze, No rales, Diminished Cardiovascular: Regular rate, Normal S1, Normal S2, No murmurs Abdomen: Bowel Sounds Present, Soft, Non Tender Extremities: No edema, Capillary Refill Less than 3 Seconds Skin: No rashes, No breakdown Musculoskeletal: No Tenderness to Palpation of Joints or Extremities Neurological: Cranial nerves II-XII grossly intact Psych/Mental Status: Impulsive Laboratory Results 07/20/19 21:25: WBC 8.9, RBC 5.97, Hgb 18.7 H*, Hct 55.3 H, MCV 92.6, MCH 31.3, MCHC 33.8, RDW Std Deviation 42.4, RDW Coeff of Yaya 12.4, Plt Count 288, MPV 8.9, Immature Gran % (Auto) 0.400, Neut % (Auto) 72.0 H, Lymph % (Auto) 17.9 L, Owsley % (Auto) 8.9, Eos % (Auto) 0.4, Baso % (Auto) 0.4, Absolute Neuts (auto) 6.4, Absolute Lymphs (auto) 1.59, Nucleated RBC % 0, Diff Path Review May foll, Platelet Estimate ADEQUATE, RBC Morphology N CHROM, Anisocytosis RARE, Macrocytosis RARE 07/20/19 21:25: Sodium 131 L, Potassium 2.8 L, Chloride 89 L, Carbon Dioxide 32.0, Anion Gap 10, BUN 30 H, Creatinine 1.25, Estim Creat Clear Calc 75.13, Est GFR (MDRD) Af Amer 79, Est GFR (MDRD) Non-Af 65, BUN/Creatinine Ratio 24.0 H, Glucose 104, Calcium 10.5 H, Total Bilirubin 1.10 H, AST 47 H, ALT 38, Alkaline Phosphatase 112, Troponin I < 0.015, Total Protein 8.9 H, Albumin 4.5, Globulin 4.4 H, Albumin/Globulin Ratio 1.0, Lipase 100 07/20/19 21:44: Lactic Acid 2.9 H* Assessment/Plan All Active Problems (Last Reviewed 07/21/19 @ 01:[address] Art Lange MD) Gastritis (Acute) Esophagitis (Acute) Hypokalemia (Acute) Abnormal LFTs (liver function tests) (Acute) The patient is a 49 year old M with a significant history of IV drug use who presents emergency department with nausea and vomiting and abdominal pain and abdominal and pelvis CT suspicious for gastritis and esophagitis. Gastritis and esophagitis. Plan was to put patient on Protonix; hydrate patient; replace electrolytes; treat pain with Bentyl; repeat lipase in a.m; put on clear liquid diet; and order antiemetics.. However patient reported that he was going to sign out AGAINST MEDICAL ADVICE since he will not be getting Suboxone here. Patient reported that the last time he used methamphetamine and heroin was about a week ago and Subutex/Suboxone is not indicated at this time. Of note patient was admitted at our hospital about a month ago and signed out against AMA whiles undergoing detoxification. Patient was seen and examined at the emergency department. Patient's plan to sign out AMA was discussed with emergency department doctor. Office Visits / Consults: [id number] OP Consult L3
--- NOTE | 2019-07-21 00:55 | ED.VIS.GEN ---
History of Present Illness Chief Complaint: Abd Pain Past Medical History - Allergies and Home Meds Allergies/Adverse Reactions: Allergies NSAIDS (Non-Steroidal Anti-Inflamma Adverse Reaction (Verified 07/20/19 20:39) Nausea SEA FOOD Allergy (Uncoded 07/20/19 20:39) Anaphylaxis Primary Care Physician: Hayes Deluna MD [Primary Care Provider] - Surgical History: cholecystectomy, - - Bilateral carpal tunnel surgery, right wrist surgery, cholecystectomy. Smoking Status: Current every day smoker - Family History Maternal Family History: Reports: Diabetes, High Cholesterol, Heart Disease, Hypertension Paternal Family History: Reports: Diabetes, High Cholesterol, Heart Disease, Hypertension Physical Exam Vital Signs/Narrative: Vital Signs Temp Pulse Resp BP Pulse Ox 07/20/19 21:42 98.1 F 96 20 H 115/84 H 97 ED Disposition - Plan for ED Patient: Disposition: Against Medical Advice Diagnosis: Abdominal pain, Gastritis, Nausea and vomiting, Lumbar vertebral fracture Instructions: ED Gastritis, Back Fracture (Compression Fracture) Prescriptions: Famotidine [Pepcid] 20 mg PO BID #28 tab Transmission Status: Pending to [facility] #30 Ondansetron [Zofran Odt] 4 mg PO Q8H PRN PRN #10 tab PRN Reason: Nausea Transmission Status: Pending to [facility] Referrals: Hayes Deluna MD [Primary Care Provider] - Art Clifford DO [STAFF PHYSICIAN] -
--- NOTE | 2019-07-21 00:59 | ED.DEP ---
ED Disposition - Plan for ED Patient: Disposition: Against Medical Advice Diagnosis: Abdominal pain, Gastritis, Nausea and vomiting, Lumbar vertebral fracture
--- NOTE | 2019-07-21 01:04 | ED.RN ---
JUAN ANTONIO paperwork printed and given to RN.
--- NOTE | 2019-07-21 01:19 | ED.RN ---
PT WAS GOING TO GET ADMITTED AND DECIDED TO LEAVE AMA INSTEAD. WHEN THIS RN WENT IN TO D/C PT AND HAVE HIM SIGN AMA PAPERWORK, PT WAS NOT IN THE ROOM AND GOWN WAS LAYING ON BED. NO OTHER STAFF SAW PT LEAVE. IV WAS IN PLACE AND NO SIGNS THAT PT TOOK IV OUT PRIOR TO LEAVING. 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
[2019-07-21 01:49] LABS: Reflex Lactate? Y
[2019-07-21 11:22] LABS: Pathologist Review Reviewed
== END 2019-07-21 01:25 | disposition left against medical advice (07) ==
LOC: ED 07-21 00:03 → PCU 07-21 00:57
PROVIDERS: Emergency Medicine; Emergency Provider Emergency Medicine; PCP Family Medicine
DX: K29.70 Gastritis, unspecified, without bleeding (principal); K21.0 Gastro-esophageal reflux disease with esophagitis; K86.1 Other chronic pancreatitis; F11.10 Opioid abuse, uncomplicated; F15.10 Other stimulant abuse, uncomplicated; F14.10 Cocaine abuse, uncomplicated; E86.0 Dehydration; E87.6 Hypokalemia; E87.1 Hypo-osmolality and hyponatremia; B19.20 Unspecified viral hepatitis C without hepatic coma; K59.00 Constipation, unspecified; S32.019A Unspecified fracture of first lumbar vertebra, initial encounter for closed fracture; V49.9XXA Car occupant (driver) (passenger) injured in unspecified traffic accident, initial encounter; Y93.9 Activity, unspecified; Y92.9 Unspecified place or not applicable; Y99.9 Unspecified external cause status; Z90.49 Acquired absence of other specified parts of digestive tract; F33.2 Major depressive disorder, recurrent severe without psychotic features; F41.9 Anxiety disorder, unspecified; F17.210 Nicotine dependence, cigarettes, uncomplicated; Z79.899 Other long term (current) drug therapy; Z88.6 Allergy status to analgesic agent; Z87.19 Personal history of other diseases of the digestive system
CPT/HCPCS: 36415; 74177; 80053; 83605; 83690; 84484; 85025; 93005; 96361; 96372; 96374; 99285; J7030; Q9967; A4216

== ENCOUNTER 2019-07-22 20:42 | Emergency (ER) | payer MEDICAID, SELFPAY ==
[2019-07-22 20:43] VITALS: BP 127/81; PULSE 114; RESP 18; TEMP 36.9; O2SAT 99; BMI 26.4
--- NOTE | 2019-07-22 20:57 | ED.VIS.GEN ---
History of Present Illness Chief Complaint: Substance Abuse Detail of Chief Complaint: Withdrawal symptoms Informant: Patient Onset: Days Context: Sudden Onset Timing: Continuous Quality: Abdominal pain, nausea, shakes Location: Generalized Current Severity: Mild Maximum Severity: Moderate Worsened by: Abstaining from IV drug use Relieved by: Injecting heroin and methamphetamine Associated Symptoms: GI and aches Narrative: Patient is a 49-year-old male with history of IV drug use. He is positive for hepatitis. He denies having HIV. He states he injects heroin and methamphetamine. He states he did a small amount of crack cocaine yesterday. He has not used anything since 399. At that time he used crack cocaine. He denies history of endocarditis. He denies fever or chills. He denies headache, visual, ocular auditory symptoms. He denies chest pain. He denies blood or mucus in his stool. Patient denies discoloration of his extremities. Prior similar symptoms: Yes Recent Illness/Hospitalization: No - Patient states he left prior to admission earlier this week - Past Medical History (1) Abnormal LFTs (liver function tests) Status: Acute (2) Esophagitis Status: Acute (3) Chronic pancreatitis Status: Chronic (4) Cocaine abuse Status: Chronic (5) Depression Status: Chronic (6) Hepatitis C Status: Chronic (7) Heroin abuse Status: Chronic (8) IV drug abuse Status: Chronic (9) Methamphetamine abuse Status: Chronic (10) Polysubstance abuse Status: Chronic (11) Tobacco use Status: Chronic Past Medical History - Allergies and Home Meds Allergies/Adverse Reactions: Allergies NSAIDS (Non-Steroidal Anti-Inflamma Adverse Reaction (Verified 07/22/19 20:44) Nausea SEA FOOD Allergy (Uncoded 07/22/19 20:44) Anaphylaxis Primary Care Physician: Hayes Deluna MD [Primary Care Provider] - Prior records reviewed: Yes Surgical History: cholecystectomy, - - Bilateral carpal tunnel surgery, right wrist surgery, cholecystectomy. Lives: Spouse/ Significant Other Smoking Status: Current every day smoker - Family History Maternal Family History: Reports: Diabetes, High Cholesterol, Heart Disease, Hypertension Paternal Family History: Reports: Diabetes, High Cholesterol, Heart Disease, Hypertension Review of Systems General: Reports: Chills, Malaise, Sweats. Denies: Fever, Subjective, Weight loss Eyes: Denies: Visual changes - bilaterally, Blurred Vision - bilaterally, Diplopia ENT: Reports: Rhinorrhea. Denies: Bilateral ear pain, Sore throat Cardiovascular: Reports: Palpitations. Denies: Chest pain Respiratory: Reports: Dyspnea, Cough. Denies: Sputum, Dyspnea on exertion, Orthopnea, Paroxysmal nocturnal dyspnea Gastrointestinal: Reports: Abdominal pain, Nausea. Denies: Vomiting, Diarrhea, Constipation, Melena, Hematochezia Genitourinary: Denies: Dysuria, Hematuria, Frequency Musculoskeletal: Reports: Myalgias. Denies: Arthralgias, Neck pain, Back pain, Swelling, Extremity Pain, -, - Neurological: Denies: Headache, Weakness, Parasthesia Psych: Reports: Depression Endocrine: Denies: Polyuria, Polydipsia Hematologic: Denies: Easy bruising, Easy bleeding Allergy: Denies: Uticaria, Swelling of the mouth Physical Exam Vital Signs/Narrative: Vital Signs Temp Pulse Resp BP Pulse Ox 07/22/19 20:43 98.4 F 114 H 18 127/81 H 99 Inital Vital Signs reviewed: Yes General: Well nourished, Well developed, - - Patient does not appear well. He is thin appearing. Head: Normocephalic, Atraumatic Eyes: Perrl, EOMI. Negative for: Pale conjunctiva, Scleral icterus ENT: TM's clear, Nasal congestion. Negative for: Dry mucous membranes Neck: Supple, Nontender, No lymphadenopathy, No JVD Cardiovascular: Regular rhythm, No murmurs, Normal S1, Normal S2, Tachycardia Respiratory: No distress, CTA bilaterally, Chest nontender Abdomen: Soft, Nondistended, Tender, Hyperactive bowel sounds. Negative for: Nontender, Normal bowel sounds, No masses, Guarding, Rebound tenderness, Hypoactive bowel sounds, Hepatomegaly, Splenomegaly, Pulsatile mass, Ventral hernia, Inguinal hernia Rectal: Deferred Back: Nontender, Normal Inspection Extremities: Nontender, No edema, - - Has evidence of track tai upper extremities. There is no evidence infection. Skin: Normal color, No Trauma, - - Track tai noted as previously documented. Negative for: Cyanosis, Diaphoresis, Jaundice Neurological: Alert, Oriented x3, Cranial nerves II-XII grossly intact, Normal Strength, Normal Sensation Psychological: - - Affect is flat Diagnostic/Tx/Re-eval - Medical Decision Making Patient is tachycardic. He is hyperreflexic. He does have findings consistent with opiate withdrawal. Will treat with p.o. Valium and obtain screening blood work. Her graph Case was discussed with hospitalist informed that he left AMA. Since he left AMA he is not a candidate for admission. He was referred to 180. ED Disposition - Plan for ED Patient: Disposition: Home or Assisted Living Diagnosis: Heroin withdrawal, Methamphetamine abuse, Sinus tachycardia Instructions: ED AMPHETAMINE ABUSE, ED Withdrawal Narcotic Referrals: Hayes Deluna MD [Primary Care Provider] - [facility] [STAFF PHYSICIAN] - As soon as possible
[2019-07-22] MEDS: diazePAM 5 MG Tablet PO (21:11)
[2019-07-22 21:41] VITALS: BP 129/90; PULSE 115; RESP 18; O2SAT 99
[2019-07-22 21:41] LABS: Absolute Lymphocyte Count 2.51 X10^3/uL (0.83-4.51); Absolute Neutrophil Count 8.5 X10^3/uL (2.0-7.7); Basophil# 0.07 X10^3/uL; Basophil% 0.6 % (0-1); Eosinophils% 0.8 % (0-5); Hematocrit 49.3 % (40-54); Hemoglobin 16.4 g/dL (13.0-16.5); Lymphocyte # 2.51 X10^3/ul (4.0); Lymphocyte % 20.3 % (19-41); Mean Corp Hgb Conc 33.3 g/dL (32-36); Mean Corpuscular Hgb 31.1 pg (27.0-32.0); Mean Corpuscular Volume 93.4 fL (80-94); Mean Platelet Vol. 8.8 fl (6.2-12.0); Monocyte# 1.17 X10^3/uL; Monocyte% 9.5 % (0-10); NRBC Flagged by Analyzer 0 % (0-5); Neutrophil # 8.47 X10^3/uL (2.7-7.7); Neutrophil % 68.3 % (47-70); Platelet Count 257 K/mm3 (150-450); RBC Distribution Width CV 12.3 % (11.6-14.6); RBC Distribution Width SD 42.5 fl (35.1-43.9); Red Blood Count 5.28 M/mm3 (4.6-6.2); White Blood Count 12.4 K/mm3 (4.4-11.0)
[2019-07-22 21:57] LABS: ALB/GLOB Ratio 1.1 RATIO (0.9-2.4); AST(SGOT) 26 U/L (15-37); Alanine Aminotransfer ALT/SGPT 32 U/L (16-61); Alkaline Phosphatase 91 U/L (45-117); Anion Gap 6 (5-15); BUN 17 mg/dL (7-18); Calcium,Total 10.1 mg/dL (8.5-10.1); Chloride 92 mmol/L (98-107); Creatinine, Serum 1.13 mg/dL (0.70-1.30); EST Glomerular Filtration Rate 73 mL/min (>60); Est Glom Filt Rate - Afr Amer 89 mL/min (>60); Estimated Creatinine Clearance 89.37 ml/min; Globulin 3.8 g/dL (2.2-4.2); Glucose 98 mg/dL (74-106); Potassium 2.8 mmol/L (3.5-5.1); Protein, Total 7.8 g/dL (6.4-8.2); Sodium Level 135 mmol/L (136-145)
[2019-07-22 22:11] LABS: Alcohol, Blood (Medical)-Serum < 3.0 mg/dL
[2019-07-22 22:33] VITALS: RESP 16
[2019-07-22 22:52] LABS: Amphetamine Urine VISTA NEGATIVE (<1000 ng/mL); Barbiturate Urine VISTA NEGATIVE (< 200 ng/mL); Benzodiazepine Urine VISTA POSITIVE (< 200 ng/mL); Cocaine Urine VISTA POSITIVE (< 300 ng/mL); Ecstacy Urine VISTA NEGATIVE (< 500 ng/mL); Methadone Urine VISTA NEGATIVE (< 300 ng/mL); PCP Urine VISTA NEGATIVE (< 25 ng/mL); THC Urine VISTA POSITIVE (< 50 ng/mL); Vista UDS pH Range 5
[2019-07-23 01:08] VITALS: RESP 16
[2019-07-23 01:31] VITALS: BP 140/96; PULSE 106; RESP 20; O2SAT 94
[2019-07-23] MEDS: Ondansetron ODT 4 MG Tablet 8 MG PO (01:36)
--- NOTE | 2019-07-23 01:44 | ED.RN ---
pt was vomiting and stated he felt anxious. ODT zofran was ordered by . this RN told pt he would get that and pt asked for water. this RN told pt we need to wait for liquids until zofran kicks in. pt went to bathroom and drank out of sink with sitter and sitter told pt not to do that. PT STATES HE DOES NOT CARE AND PROCEEDED.
[2019-07-23 02:06] VITALS: RESP 12
--- NOTE | 2019-07-23 02:41 | ED.RN ---
patient has been referred to [facility] for possible treatment. Patient has been accepted to [facility] for eval. [phone] spoke with abdifatah. Patient will attempt to find ride in am to [place]. Radha heredia at this time
[2019-07-23 03:46] VITALS: RESP 16
--- NOTE | 2019-07-23 04:19 | DCINST.ED_ITS ---
ED Disposition - Plan for ED Patient: Disposition: Home or Assisted Living Diagnosis: Heroin withdrawal, Methamphetamine abuse, Sinus tachycardia Instructions: ED AMPHETAMINE ABUSE, ED Withdrawal Narcotic Additional Instructions: Please follow with detox at [facility]. Proceed to the emergency department entrance and let them know that you would like to be evaluated for detox
[2019-07-23 04:23] VITALS: BP 108/60; PULSE 108; RESP 16; O2SAT 95
== END 2019-07-23 04:24 | disposition home or self-care (01) ==
PROVIDERS: Emergency Medicine; Emergency Provider Emergency Medicine; PCP Family Medicine
DX: F11.23 Opioid dependence with withdrawal (principal); F15.10 Other stimulant abuse, uncomplicated; R45.851 Suicidal ideations; K86.1 Other chronic pancreatitis; B19.20 Unspecified viral hepatitis C without hepatic coma; K20.9 Esophagitis, unspecified; F32.9 Major depressive disorder, single episode, unspecified; F17.200 Nicotine dependence, unspecified, uncomplicated; Z79.899 Other long term (current) drug therapy; Z88.6 Allergy status to analgesic agent; Z90.49 Acquired absence of other specified parts of digestive tract
CPT/HCPCS: 80053; 80307; 80320; 85025; 99285; A4216; G0480

== ENCOUNTER 2019-08-06 08:47 | Emergency (ER) | payer MEDICAID, SELFPAY ==
[2019-08-06 08:47] VITALS: BP 122/78; PULSE 103; RESP 18; TEMP 36.7; O2SAT 100; BMI 24.9
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
[2019-08-06] MEDS: Morphine 4 MG/ML Syringe IM (09:28)
[2019-08-06 09:43] VITALS: BP 113/78; PULSE 81; RESP 16; O2SAT 97
--- NOTE | 2019-08-06 09:43 | ED.RN ---
THIS NURSE REVIEWED D/C INSTRUCTIONS WITH PT. PT VERBALIZED UNDERSTANDING OF INSTRUCTIONS. PT REQUESTING A SANDWICH AND SNACKS TO TAKE WITH HIM. PT REQUEST DENIED. PT REQUESTING TO GO TO HIS GIRLFRIEND'S ROOM. PT INFORMED THERE ARE NO VISITORS. PT INFORMED HE NEEDS TO LEAVE THE ER.
== END 2019-08-06 09:46 | disposition home or self-care (01) ==
LOC: ED 09:37
PROVIDERS: Emergency Provider Emergency Medicine; PCP Family Medicine
DX: M48.56XD Collapsed vertebra, not elsewhere classified, lumbar region, subsequent encounter for fracture with routine healing (principal); V89.2XXD Person injured in unspecified motor-vehicle accident, traffic, subsequent encounter; Z72.0 Tobacco use; Z79.899 Other long term (current) drug therapy
CPT/HCPCS: 96372; 99282

== ENCOUNTER 2021-03-11 10:02 | Emergency (ER) | payer OTHER, SELFPAY ==
[2021-03-11 10:03] VITALS: BP 157/88; PULSE 125; RESP 16; TEMP 36.9; O2SAT 97; BMI 23.7
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
[2021-03-11] MEDS: Ondansetron 4 MG/2 ML Vial IV (10:55)
[2021-03-11] MEDS: Morphine 4 MG/ML Syringe IV (10:56)
[2021-03-11 10:59] LABS: Absolute Lymphocyte Count 1.79 X10^3/uL (0.83-4.51); Absolute Neutrophil Count 8.4 X10^3/uL (2.0-7.7); Basophil# 0.04 X10^3/uL; Basophil% 0.4 % (0-1); Eosinophils% 2.6 % (0-5); Hematocrit 39.2 % (40-54); Hemoglobin 12.5 g/dL (13.0-16.5); Lymphocyte # 1.79 X10^3/ul (0.83-4.51); Lymphocyte % 15.7 % (19-41); Mean Corp Hgb Conc 31.9 g/dL (32-36); Mean Corpuscular Hgb 30.8 pg (27.0-32.0); Mean Corpuscular Volume 96.6 fL (80-94); Mean Platelet Vol. 8.5 fl (6.2-12.0); Monocyte# 0.87 X10^3/uL; Monocyte% 7.6 % (0-10); NRBC Flagged by Analyzer 0 % (0-5); Neutrophil # 8.36 X10^3/uL (2.7-7.7); Neutrophil % 73.2 % (47-70); Platelet Count 283 K/mm3 (150-450); RBC Distribution Width SD 46.6 fl (35.1-43.9); Red Blood Count 4.06 M/mm3 (4.6-6.2); White Blood Count 11.4 K/mm3 (4.4-11.0)
[2021-03-11 11:12] LABS: Anion Gap 8 (5-15); BUN 13 mg/dL (7-18); BUN/Creat Ratio 15.1 RATIO (10-20); Calcium,Total 9.2 mg/dL (8.5-10.1); Chloride 104 mmol/L (98-107); Creatinine, Serum 0.86 mg/dL (0.70-1.30); EST Glomerular Filtration Rate 100 mL/min (>60); Est Glom Filt Rate - Afr Amer 121 mL/min (>60); Estimated Creatinine Clearance 111.54 ml/min; Glucose 151 mg/dL (74-106); Potassium 3.7 mmol/L (3.5-5.1); Sodium Level 140 mmol/L (136-145)
--- NOTE | 2021-03-11 11:12 | NURSING ---
CALLED [facility]. TALKED TO BIRDIE. HE'S TALKING TO DR HANNA
[2021-03-11 11:24] LABS: Lactic Acid 2.2 mmol/L (0.4-1.9)
--- NOTE | 2021-03-11 11:44 | NURSING ---
1107 CALLED [facility] FOR TRANSFER. DECLINED BECAUSE AT CAPACITY
--- NOTE | 2021-03-11 11:44 | NURSING ---
1142 CALLED [facility] DECLINED BECAUSE AT CAPACITY, ER IS BED BOARDING, DIVERTING
--- NOTE | 2021-03-11 11:45 | NURSING ---
CALLED [facility] HAD TO LEAVE MESSAGE
--- NOTE | 2021-03-11 12:06 | NURSING ---
CALLED [facility]. TALKED TO JANET. HE WILL HAVE A HAND SURGEON CALL US BACK.
[2021-03-11 12:33] VITALS: BP 145/83; PULSE 115; RESP 18; O2SAT 95
--- NOTE | 2021-03-11 12:56 | ED.RN ---
ACCEPTED AT [facility]. ER TO ER. DR CHEEMA. NURSE TO NURSE REPORT [phone]
[2021-03-11 13:20] VITALS: BP 148/86; PULSE 86; RESP 18; TEMP 37.2; O2SAT 96
[2021-03-11] MEDS: HYDROmorphone 1 MG/ML Syringe IV (13:28)
--- NOTE | 2021-03-11 13:45 | NURSING ---
[facility] NURSE TO NURSE [phone] VANESSA CHEEMA
[2021-03-11 14:53] LABS: Reflex Lactate? Y
== END 2021-03-11 14:23 | disposition other institution (70) ==
PROVIDERS: Emergency Provider Emergency Medicine; PCP Family Medicine
DX: L03.114 Cellulitis of left upper limb (principal); M65.842 Other synovitis and tenosynovitis, left hand; R11.0 Nausea; Z20.822 Contact with and (suspected) exposure to COVID-19; G56.03 Carpal tunnel syndrome, bilateral upper limbs; F17.210 Nicotine dependence, cigarettes, uncomplicated; Z79.899 Other long term (current) drug therapy
CPT/HCPCS: 73130; 80048; 83605; 85025; 87040; 87426; 96365; 96366; 96367; 96375; 99285; J7030; J7050; A4216; J2405

== ENCOUNTER 2022-04-17 22:57 | Emergency (ER) | payer MEDICAID, SELFPAY ==
[2022-04-17 22:57] VITALS: TEMP 36.4; BMI 23.0
[2022-04-17 23:02] VITALS: BP 133/97; PULSE 111; RESP 18; O2SAT 98
--- NOTE | 2022-04-17 23:05 | ED.RN ---
PT. REFUSES TO GET INTO [facility] FOR ASSESSMENT.
--- NOTE | 2022-04-17 23:30 | EX.ED.DYSGE1 ---
HPI History of Present Illness Chief Complaint: General Illness Narrative Narrative: Patient is a 52-year-old male with past medical history of polysubstance abuse gastritis tobacco abuse and hepatitis C. he states that he has severe acid reflux and if he runs out of his omeprazole he will have increased abdominal pain and bouts of nausea and vomiting. Patient does state its been roughly 2 to 3 days since he has had omeprazole and he feels like his symptoms are flaring up. Secondary to this he comes to the hospital for evaluation. [facility] Medical History Carpal tunnel syndrome on both sides Hepatitis C Home Medications omeprazole 40 mg capsule,delayed release 40 mg PO DAILY 30 days #30 caps 04/18/22 [Rx Last Taken Unknown] omeprazole 40 mg capsule,delayed release 40 mg PO DAILY 30 days #30 caps 04/18/22 [Rx Last Taken Unknown] Allergy/AdvReac Type Severity Reaction Status Date / Time Fish Containing Products Allergy Severe Anaphylaxis Verified 03/07/22 13:36 shellfish derived Allergy Severe Anaphylaxis Verified 03/07/22 13:36 NSAIDS (Non-Steroidal AdvReac Nausea Verified 03/11/21 10:06 Anti-Inflamma Surgical History (Updated 03/11/21 @ 10:48 by Dolores Flower) Hx of cholecystectomy Social History Smoking Status: Current every day smoker tobacco type: cigarettes ROS ROS ED Constitutional Constitutional ED: Denies chills or fever(s) ENT ENT ED: Denies sore throat Cardiovascular Cardiovascular: Denies chest pain Respiratory/Chest Respiratory/Chest: Reports cough; Denies dyspnea Gastrointestinal Gastrointestinal: Reports abdominal pain, nausea and vomiting; Denies diarrhea Genitourinary Genitourinary ED: Denies dysuria Musculoskeletal Musculoskeletal: Denies myalgias Integumentary Denies rash Neurologic Neurologic: Denies headache(s) Hematologic/Lymphatic Hematologic/Lymphatic: Denies easy bleeding or easy bruising EXAM Physical Exam Const Vital Signs: 04/17/22 22:57 04/17/22 23:02 Temperature 97.6 F L Temperature Source Temporal Pulse Rate 111 H Respiratory Rate 18 Blood Pressure 133/97 H Blood Pressure Mean 109 Pulse Ox 98 Oxygen Delivery Method Room Air Positive well nourished and well developed General Appearance ED: well developed HEENT Reports dry mucous membranes Mouth ED: Yes dry mucous membranes Mouth: dry mucous membranes Eyes PERRL and EOMs intact bilaterally General Eye ED: Negative for scleral icterus Neck supple Resp normal respiratory effort Resp Narrative: Breath sounds are diminished throughout with rhonchi in the bilateral bases consistent with history of smoking but otherwise no nasal flaring retractions tachypnea or accessory muscle use Cardio regular rate and regular rhythm Rate: other Other Details: Radial pulses are plus 2 out of 4 bilaterally are equal and symmetric GI normal to inspection, nondistended, normoactive bowel sounds, non-tender, non-distended and no masses GI Narrative: No voluntary guarding or rigidity no pulsatile mass or fluid wave Auscultation: normoactive bowel sounds Palpation: soft Extremity normal to inspection Neuro oriented x3 and CN's II-XII intact bilaterally Sensorium / Orientation: alert Psych mental status grossly normal Skin no rashes or lesions noted General Skin Exam: Negative for jaundice MDM MDM MDM Narrative Medical decision making narrative: Presented to the ER slightly hypertensive but otherwise afebrile. He had multiple complaints upon arrival but mainly focused on the fact he was out of his omeprazole and his stomach was causing him pain. He does have a history of pancreatitis and with his pain located mainly in the midepigastric region I did elect to perform basic laboratory studies. Labs displayed no clinically significant finding. Patient was medicated with oral omeprazole and a GI cocktail. On reevaluation he reported feeling better. At this time with negative work-up and improvement of symptoms I do not feel there is need for further evaluation and patient can be prescribed omeprazole which she has recently run out of and discharged. Lab Data Attestation: I reviewed the patient's lab results. Labs: Laboratory Results - last 24 hr 04/17/22 04/17/22 23:46 23:46 WBC 7.0 RBC 3.85 L Hgb 12.1 L Hct 38.4 L MCV 99.7 H MCH 31.4 MCHC 31.5 L RDW Std Deviation 49.7 H RDW Coeff of Yaya 13.5 Plt Count 229 MPV 9.4 Immature Gran % (Auto) 0.300 Neut % (Auto) 58.2 Lymph % (Auto) 26.7 Ogle % (Auto) 7.8 Eos % (Auto) 5.6 H Baso % (Auto) 1.4 H Absolute Neuts (auto) 4.1 Absolute Lymphs (auto) 1.87 Nucleated RBC % 0 Differential Comment SCANNED Platelet Estimate ADEQUATE Sodium 140 Potassium 3.9 Chloride 108 H Carbon Dioxide 26.0 Anion Gap 6 BUN 15 Creatinine 1.06 Estim Creat Clear Calc 88.91 Est GFR (MDRD) Af Amer 94 Est GFR (MDRD) Non-Af 78 BUN/Creatinine Ratio 14.2 Glucose 121 H Calcium 8.7 Total Bilirubin 0.30 Direct Bilirubin 0.08 AST 22 ALT 20 Alkaline Phosphatase 62 Total Protein 6.4 Albumin 3.1 L Globulin 3.3 Lipase 144 Discharge Plan Triage Chief Complaint: General Illness Other Complaint: Abd Pain ED Provider: Lalit Chapa Dx/Rx/DC Orders Clinical Impression: Gastritis, Hepatitis C, Tobacco use Instructions: ED Gastritis (Adult) Prescriptions: New omeprazole 40 mg capsule,delayed release(DR/EC) 40 mg PO DAILY 30 Days Qty: 30 2RF omeprazole 40 mg capsule,delayed release(DR/EC) 40 mg PO DAILY 30 Days Qty: 30 2RF Primary Care Provider: Care Physician,No Primary Referrals: Coleen Velasquez MD [Med Staff - Television Audio Engineer] - Care Physician,No Primary [Primary Care Provider] - Activity Restrictions/Additional Instructions: Please take your omeprazole to help control your symptoms and return to the ER should you have any further concerns Disposition Disposition: Home, Self Care
[2022-04-17] MEDS: Mag Hydrox/Al Hydrox/Simeth 30 ML UDC PO (23:42)
--- NOTE | 2022-04-17 23:48 | ED.RN ---
This RN poked patient for IV and bloodwork. Bloodwork was obtained, pt. refused another attempt at IV. Verbalized understanding he would not get his IV fluids or protonix.
[2022-04-17 23:53] LABS: Absolute Lymphocyte Count 1.87 X10^3/uL (0.83-4.51); Absolute Neutrophil Count 4.1 X10^3/uL (2.0-7.7); Basophil% 1.4 % (0-1); Eosinophil# 0.39 X10^3/uL; Eosinophils% 5.6 % (0-5); Hematocrit 38.4 % (40-54); Hemoglobin 12.1 g/dL (13.0-16.5); Lymphocyte # 1.87 X10^3/ul (0.83-4.51); Lymphocyte % 26.7 % (19-41); Mean Corp Hgb Conc 31.5 g/dL (32-36); Mean Corpuscular Hgb 31.4 pg (27.0-32.0); Mean Corpuscular Volume 99.7 fL (80-94); Mean Platelet Vol. 9.4 fl (6.2-12.0); Monocyte# 0.55 X10^3/uL; Monocyte% 7.8 % (0-10); NRBC Flagged by Analyzer 0 % (0-5); Neutrophil # 4.08 X10^3/uL (2.7-7.7); Neutrophil % 58.2 % (47-70); POSITIVE COUNT YES; Platelet Count 229 K/mm3 (150-450); RBC Distribution Width CV 13.5 % (11.6-14.6); RBC Distribution Width SD 49.7 fl (35.1-43.9); Red Blood Count 3.85 M/mm3 (4.6-6.2)
[2022-04-18] MEDS: Famotidine 20 MG Tablet 40 MG PO (00:10)
[2022-04-18 00:11] LABS: AST(SGOT) 22 U/L (15-37); Alanine Aminotransfer ALT/SGPT 20 U/L (16-61); Albumin, Serum 3.1 g/dL (3.2-5.0); Alkaline Phosphatase 62 U/L (45-117); Anion Gap 6 (5-15); BUN 15 mg/dL (7-18); BUN/Creat Ratio 14.2 RATIO (10-20); Bilirubin, Direct 0.08 mg/dL (0.00-0.30); Calcium,Total 8.7 mg/dL (8.5-10.1); Chloride 108 mmol/L (98-107); Creatinine, Serum 1.06 mg/dL (0.70-1.30); EST Glomerular Filtration Rate 78 mL/min (>60); Est Glom Filt Rate - Afr Amer 94 mL/min (>60); Estimated Creatinine Clearance 88.91 ml/min; Globulin 3.3 g/dL (2.2-4.2); Glucose 121 mg/dL (74-106); Lipase 144 U/L (73-393); Potassium 3.9 mmol/L (3.5-5.1); Protein, Total 6.4 g/dL (6.4-8.2); Sodium Level 140 mmol/L (136-145)
[2022-04-18 00:19] LABS: Differential Comment SCANNED; Differential Indicated SCAN CRITERIA MET; Platelet Estimate ADEQUATE (ADEQ)
--- NOTE | 2022-04-18 01:19 | ED.RN ---
pt refused to have an iv placed
== END 2022-04-18 01:20 | disposition home or self-care (01) ==
PROVIDERS: Emergency Provider Emergency Medicine; Visit Provider Emergency Medicine
DX: K29.70 Gastritis, unspecified, without bleeding (principal); B19.20 Unspecified viral hepatitis C without hepatic coma; F17.210 Nicotine dependence, cigarettes, uncomplicated
CPT/HCPCS: 80048; 80076; 83690; 85025; 99285; J7030; A4216; J3490

== ENCOUNTER 2022-06-02 11:08 | Emergency (ER) | payer MEDICAID, SELFPAY ==
[2022-06-02 11:09] VITALS: BP 123/99; PULSE 133; RESP 16; TEMP 36.6; O2SAT 98; BMI 23.1
--- NOTE | 2022-06-02 11:20 | EKG12_ITS ---
Test Reason : CP Blood Pressure : / mmHG Vent. Rate : 115 BPM Atrial Rate : 115 BPM P-R Int : 182 ms QRS Dur : 076 ms QT Int : 302 ms P-R-T Axes : 069 073 071 degrees QTc Int : 417 ms Sinus tachycardia Otherwise normal ECG Confirmed by MICHELLE DRISCOLL, KARO ([id number]), commercial production editor BONIFACIO HAAS ([id number]) on 06/03/2022 2:39:26 PM Referred By: ALEKSANDAR/SUE Confirmed By:KARO MARTINEZ MD
--- NOTE | 2022-06-02 11:31 | RAD_ITS ---
HISTORY: chest pain. TECHNIQUE: XR Chest 2 Views. COMPARISON: 05/08/2015. FINDINGS: CARDIOMEDIASTINAL BORDERS: Cardiac silhouette within normal limits in size. Mediastinal contour unremarkable. LUNGS: Mild hyperinflation of the lungs with chronic scarring in the left midlung. Mild bronchial wall thickening and linear opacities in the lung bases. PLEURA: No pleural effusion or pneumothorax seen. OSSEOUS STRUCTURES: Degenerative change. RAD/Chest PA and Lateral IMPRESSION: Mild bibasilar atelectasis or inflammation. Electronically Signed: Cristy Chiu MD at 12:34 EST ,
--- NOTE | 2022-06-02 11:34 | EX.ED.DYSGE1 ---
HPI <EMERY Arellano - Last Filed: 06/02/22 14:17> History of Present Illness Chief Complaint: General Illness Narrative Narrative: 52-year-old male with PMH of gastritis, tobacco use, polysubstance use presents with 3 to 4 weeks of chest pain and bilateral lower extremity swelling. He states initially it felt like a [place] truck hit his chest and now it has subsided to feeling like a baseball bat this hitting his chest. It occurs every day all day long and nothing makes it better or worse. He feels mildly short of breath and has had a cough. He had 1 episode of vomiting and diarrhea yesterday. No fever or upper respiratory symptoms. He smokes 1 pack every 3 days, smokes weed, and last used meth 3 days ago. He came in today because his friends wanted him evaluated. He is currently homeless. PFSH <EMERY Arellano - Last Filed: 06/02/22 14:17> [facility] Medical History (Updated 06/02/22 @ 14:05 by EMERY Arellano) Carpal tunnel syndrome on both sides Hepatitis C Substance abuse Home Medications azithromycin 250 mg tablet (Zithromax) 250 mg PO DAILY 4 days #4 tabs 06/02/22 [Rx Last Taken Unknown] cefdinir 300 mg capsule 300 mg PO BID 7 days #14 caps 06/02/22 [Rx Last Taken Unknown] lidocaine 5 % topical patch (Lidoderm) 1 patch topical DAILY PRN rib fracture 7 days #15 ea 06/02/22 [Rx Last Taken Unknown] Allergy/AdvReac Type Severity Reaction Status Date / Time Fish Containing Products Allergy Severe Anaphylaxis Verified 06/02/22 11:13 shellfish derived Allergy Severe Anaphylaxis Verified 06/02/22 11:13 NSAIDS (Non-Steroidal AdvReac Nausea Verified 06/02/22 11:13 Anti-Inflamma Surgical History Hx of cholecystectomy Social History Smoking Status: Current every day smoker tobacco type: cigarettes ROS <EMERY Arellano - Last Filed: 06/02/22 14:17> ROS ED ROS Narrative Constitutional: Negative for fever, chills, malaise. ENT: Negative for sore throat, ear pain, rhinorrhea. CVS: Positive for chest pain. Negative for palpitations, syncope. Respiratory: Positive for shortness of breath. Negative for cough, orthopnea. GI: As in for nausea, vomiting, diarrhea. Negative for abdominal pain, constipation, melena, hematochezia. : Negative for dysuria, hematuria or frequency. Neuro: Negative for headache. Skin: Negative for rash, abscess, or wound. Musc: Negative for joint pain, trauma. Heme: Negative for easy bruising, bleeding, lymphadenopathy. EXAM <EMERY Arellano - Last Filed: 06/02/22 14:17> Physical Exam Narrative Exam Narrative: CONST: Patient sitting in no acute distress, disheveled appearance. EYES: Normal inspection. ENT: Normal inspection, moist mucous membranes. NECK: Normal inspection. RESP: No respiratory distress, CTAB. CVS: Regular rate and rhythm, no murmur, no gallop. ABD: Soft and nontender, no guarding or rebound, nondistended, no hepatosplenomegaly. SKIN: Color normal, no rash, warm, dry, intact. EXTREMITIES: Normal appearance, 1+ pitting edema to both lower shins. NEURO: Oriented x4. PSYCH: Normal affect. Const Vital Signs: 06/02/22 11:09 06/02/22 12:10 06/02/22 14:41 Temperature 97.8 F Temperature Source Temporal Pulse Rate 133 H 94 Respiratory Rate 16 16 Respiratory Effort Normal Respiratory Pattern Normal Blood Pressure 123/99 H Blood Pressure Mean 107 Pulse Ox 98 98 Oxygen Delivery Method Room Air <Dr. Kenisha Ellsworth, - Last Filed: 06/02/22 15:43> Physical Exam Const Vital Signs: 06/02/22 11:09 06/02/22 12:10 06/02/22 14:41 Temperature 97.8 F Temperature Source Temporal Pulse Rate 133 H 94 Respiratory Rate 16 16 Respiratory Effort Normal Respiratory Pattern Normal Blood Pressure 123/99 H Blood Pressure Mean 107 Pulse Ox 98 98 Oxygen Delivery Method Room Air MDM <EMERY Arellano - Last Filed: 06/02/22 14:17> MDM MDM Narrative Medical decision making narrative: History gathered from: Patient and friend at bedside Patient has had 3 to 4 weeks of chest pain and bilateral lower extremity swelling. Yesterday he also developed vomiting and diarrhea x1. He appears disheveled and nontoxic. Heart rate is 133 with otherwise normal vital signs. On exam heart is rapid but regular with no murmurs. Lungs clear. Abdomen soft and nontender. There is 1+ pitting edema of the lower extremities. With his recent chest pain and new and/V/D a broad work-up will be done including basic labs, cardiac enzymes, and D-dimer. CBC shows normal white count at 8.4, chronic anemia of 12.4. Sodium 135, potassium 3.3, normal renal function and LFTs, lipase 70. EKG is sinus tachycardia with no ischemic changes and troponin is 5. ED attending interpretation shows normal heart size, no acute infiltrate, edema, or effusion. CXR shows no acute process. D-dimer was elevated at 0.72 so a CTA was ordered. CTA shows left lower lobe pneumonia and a nondisplaced fracture of the left fourth rib. No PE. He may have coughed so much she caused a rib fracture which explains his chest pain. I prescribed Zithromax and Omnicef with first dose given here and lidocaine patches for pain. I recommended Tylenol if he needs additional pain control. I did not want to add narcotics with his history of polysubstance abuse. Patient was comfortable with this plan and given return precautions and discharged in stable condition. Differential: Viral syndrome, pneumonia, ACS, PE, polysubstance abuse I considered admission but patient is not hypoxic and vital signs improved after fluid and Tylenol, also his heart rate is likely elevated due to recent meth use. Lab Data Attestation: I reviewed the patient's lab results. Labs: Laboratory Results - last 24 hr 06/02/22 06/02/22 06/02/22 12:05 12:05 12:05 WBC 8.4 RBC 3.94 L Hgb 12.4 L Hct 38.0 L MCV 96.4 H MCH 31.5 MCHC 32.6 RDW Std Deviation 47.6 H RDW Coeff of Yaya 13.3 Plt Count 287 MPV 8.3 Immature Gran % (Auto) 0.400 Neut % (Auto) 86.5 H Lymph % (Auto) 7.0 L [place] % (Auto) 3.8 Eos % (Auto) 2.1 Baso % (Auto) 0.2 Absolute Neuts (auto) 7.3 Absolute Lymphs (auto) 0.59 L Nucleated RBC % 0 Differential Comment SCANNED D-Dimer Quant (PE/DVT) Sodium 135 L Potassium 3.3 L Chloride 101 Carbon Dioxide 28.0 Anion Gap 6 BUN 12 Creatinine 0.77 Estim Creat Clear Calc 122.86 Est GFR (MDRD) Af Amer 136 Est GFR (MDRD) Non-Af 112 BUN/Creatinine Ratio 15.6 Glucose 124 H Lactic Acid Calcium 8.6 Total Bilirubin 0.40 AST 23 ALT 27 Alkaline Phosphatase 71 Total Creatine Kinase Troponin I High Sens 5 B-Natriuretic Peptide 68.0 Total Protein 6.2 L Albumin 2.9 L Globulin 3.3 Albumin/Globulin Ratio 0.9 Lipase 70 L 06/02/22 06/02/22 06/02/22 12:05 12:05 12:05 WBC RBC Hgb Hct MCV MCH MCHC RDW Std Deviation RDW Coeff of Yaya Plt Count MPV Immature Gran % (Auto) Neut % (Auto) Lymph % (Auto) [place] % (Auto) Eos % (Auto) Baso % (Auto) Absolute Neuts (auto) Absolute Lymphs (auto) Nucleated RBC % Differential Comment D-Dimer Quant (PE/DVT) 0.72 H* Sodium Potassium Chloride Carbon Dioxide Anion Gap BUN Creatinine Estim Creat Clear Calc Est GFR (MDRD) Af Amer Est GFR (MDRD) Non-Af BUN/Creatinine Ratio Glucose Lactic Acid 1.2 Calcium Total Bilirubin AST ALT Alkaline Phosphatase Total Creatine Kinase 91 Troponin I High Sens B-Natriuretic Peptide Total Protein Albumin Globulin Albumin/Globulin Ratio Lipase Radiography Diagnostic Testing: Clinical Impression(s) from Imaging Studies Chest X-Ray 06/02/22 11:31 IMPRESSION: Mild bibasilar atelectasis or inflammation. Electronically Signed: Cristy Chiu MD at 12:34 EST Reading Location ID and State: [facility] / [place] Tel , Service support , Chest CTA 06/02/22 12:46 IMPRESSION: No evidence of pulmonary embolism. Mild left lower lobe pneumonia or pneumonitis. Acute nondisplaced fracture of the left fourth rib with trace extrapleural hematoma. Electronically Signed: Cristy Chiu MD at 13:46 EST Reading Location ID and State: [facility] / [place] Tel , Service support , ED attending interpretation of 2 view chest shows normal heart size, no acute infiltrate or effusion. EKG Initial EKG: Attestation: I personally reviewed and interpreted this EKG as follows: Interpretation: Sinus Rhythm Comments: ED attending interpretation of EKG is sinus tachycardia at 115 bpm, no ectopy or ST segment changes <Dr. Kenisha Ellsworth, DO - Last Filed: 06/02/22 15:43> [facility] Lab Data Labs: Laboratory Results - last 24 hr 06/02/22 06/02/22 06/02/22 12:05 12:05 12:05 WBC 8.4 RBC 3.94 L Hgb 12.4 L Hct 38.0 L MCV 96.4 H MCH 31.5 MCHC 32.6 RDW Std Deviation 47.6 H RDW Coeff of Yaya 13.3 Plt Count 287 MPV 8.3 Immature Gran % (Auto) 0.400 Neut % (Auto) 86.5 H Lymph % (Auto) 7.0 L [place] % (Auto) 3.8 Eos % (Auto) 2.1 Baso % (Auto) 0.2 Absolute Neuts (auto) 7.3 Absolute Lymphs (auto) 0.59 L Nucleated RBC % 0 Differential Comment SCANNED D-Dimer Quant (PE/DVT) Sodium 135 L Potassium 3.3 L Chloride 101 Carbon Dioxide 28.0 Anion Gap 6 BUN 12 Creatinine 0.77 Estim Creat Clear Calc 122.86 Est GFR (MDRD) Af Amer 136 Est GFR (MDRD) Non-Af 112 BUN/Creatinine Ratio 15.6 Glucose 124 H Lactic Acid Calcium 8.6 Total Bilirubin 0.40 AST 23 ALT 27 Alkaline Phosphatase 71 Total Creatine Kinase Troponin I High Sens 5 B-Natriuretic Peptide 68.0 Total Protein 6.2 L Albumin 2.9 L Globulin 3.3 Albumin/Globulin Ratio 0.9 Lipase 70 L 06/02/22 06/02/22 06/02/22 12:05 12:05 12:05 WBC RBC Hgb Hct MCV MCH MCHC RDW Std Deviation RDW Coeff of Yaya Plt Count MPV Immature Gran % (Auto) Neut % (Auto) Lymph % (Auto) [place] % (Auto) Eos % (Auto) Baso % (Auto) Absolute Neuts (auto) Absolute Lymphs (auto) Nucleated RBC % Differential Comment D-Dimer Quant (PE/DVT) 0.72 H* Sodium Potassium Chloride Carbon Dioxide Anion Gap BUN Creatinine Estim Creat Clear Calc Est GFR (MDRD) Af Amer Est GFR (MDRD) Non-Af BUN/Creatinine Ratio Glucose Lactic Acid 1.2 Calcium Total Bilirubin AST ALT Alkaline Phosphatase Total Creatine Kinase 91 Troponin I High Sens B-Natriuretic Peptide Total Protein Albumin Globulin Albumin/Globulin Ratio Lipase Radiography Chest X-Ray - ED: 1 View, Read by ED Physician, Read by Radiologist and No Acute Disease Diagnostic Testing: Clinical Impression(s) from Imaging Studies Chest X-Ray 06/02/22 11:31 IMPRESSION: Mild bibasilar atelectasis or inflammation. Electronically Signed: Cristy Chiu MD at 12:34 EST , Chest CTA 06/02/22 12:46 IMPRESSION: No evidence of pulmonary embolism. Mild left lower lobe pneumonia or pneumonitis. Acute nondisplaced fracture of the left fourth rib with trace extrapleural hematoma. Electronically Signed: Cristy Chiu MD at 13:46 EST , Treatment and Re-Evaluation :: I have personally performed a face to face assessment of the patient and have reviewed the KINGSLEY Note. I performed a substantive portion of the visit including all aspects of the following. My hood findings include: Patient with a history of polysubstance abuse and chronic pancreatitis presenting for 4 weeks of chest pressure as if he was run over by a truck, mild shortness of breath and now vomiting and diarrhea. Patient really is complained of pain all over. On exam he inconsistently jumps with even light palpation. He does have a tachycardia he has equal pulses in his extremities. Patient is given Tylenol as well as IV fluids in the emergency room for his tachycardia. Differential includes pulmonary emboli, pneumonia, pneumothorax, pancreatitis as well and is viral syndrome and muscle skeletal pain. Patient's tachycardia does improve with Tylenol and IV fluids. D-dimer is elevated however his troponin is normal. Lower suspicion for pericarditis/myocarditis. CTA is performed which does not show any pulmonary emboli but does show mild left lower pneumonia versus pneumonitis as well as an acute nondisplaced fracture of the left fourth rib with trace extrapleural hematoma. Patient does not report any trauma to the area. Possibly get a rib fracture from coughing from pneumonia. Patient be treated for commune acquired pneumonia with cefdinir and azithromycin. Remainder of his work-up is largely normal. Given his significant history of polysubstance abuse with active use I do not feel comfortable giving him any opioid pain medicine at this time. He is given Lidoderm patches and counseled to take Tylenol/ibuprofen for his pain. He is given return precautions. Verbalizes agreement of transplant. Discharged home with improvement in vital signs. Other additions or changes: [None] Discharge Plan Triage Chief Complaint: General Illness ED Midlevel Provider: Marquita Bautista ED Provider: Kenisha Ellsworth Dx/Rx/DC Orders Clinical Impression: Pneumonia, Chest pain, Left rib fracture Instructions: ED Rib Fracture, ED Pneumonia (Adult) Prescriptions: New lidocaine [Lidoderm] 5 % adhesive patch,medicated 1 patch topical DAILY PRN (Reason: rib fracture) 7 Days Qty: 15 0RF Rx Instructions: leave on most painful area for up to 12 hrs, use for rib fracture / chest pain azithromycin [Zithromax] 250 mg tablet 250 mg PO DAILY 4 Days Qty: 4 0RF Rx Instructions: start on 06/03/22 cefdinir 300 mg capsule 300 mg PO BID 7 Days Qty: 14 0RF Primary Care Provider: Keyanna Bender Referrals: Keyanna Bender [Primary Care Provider] - Activity Restrictions/Additional Instructions: CAT scan of your chest showed you have pneumonia and a left fourth rib fracture. You may have coughed so much and caused the fracture. I prescribed lidocaine patches to put over the painful area and you can take Tylenol every 6 hours. You were also given 2 different antibiotics for pneumonia?complete all of these. Return to the ER if symptoms worsen. Disposition Disposition: Home, Self Care Discharge Date/Time: 06/02/22 14:58
[2022-06-02] MEDS: 0.9% Normal Saline 1,000 ML 999 ML IV (12:14)
[2022-06-02 12:20] LABS: Absolute Lymphocyte Count 0.59 X10^3/uL (0.83-4.51); Absolute Neutrophil Count 7.3 X10^3/uL (2.0-7.7); Basophil# 0.02 X10^3/uL; Basophil% 0.2 % (0-1); Eosinophil# 0.18 X10^3/uL; Eosinophils% 2.1 % (0-5); Hemoglobin 12.4 g/dL (13.0-16.5); Lymphocyte # 0.59 X10^3/ul (0.83-4.51); Mean Corp Hgb Conc 32.6 g/dL (32-36); Mean Corpuscular Hgb 31.5 pg (27.0-32.0); Mean Corpuscular Volume 96.4 fL (80-94); Mean Platelet Vol. 8.3 fl (6.2-12.0); Monocyte# 0.32 X10^3/uL; Monocyte% 3.8 % (0-10); NRBC Flagged by Analyzer 0 % (0-5); Neutrophil % 86.5 % (47-70); POSITIVE DIFFERENTIAL YES; Platelet Count 287 K/mm3 (150-450); RBC Distribution Width CV 13.3 % (11.6-14.6); RBC Distribution Width SD 47.6 fl (35.1-43.9); Red Blood Count 3.94 M/mm3 (4.6-6.2); White Blood Count 8.4 K/mm3 (4.4-11.0)
[2022-06-02 12:23] LABS: Differential Indicated SCAN CRITERIA MET
[2022-06-02 12:44] LABS: D-Dimer Quantitative (DVT/PE) 0.72 FEU/ug/m (0.27-0.49)
--- NOTE | 2022-06-02 12:46 | CT_ITS ---
HISTORY: chest pain, rule out PE. TECHNIQUE: CT angiogram of the chest was performed after the intravenous administration of 100 mL Isovue-370. Post-processing of the angiographic images was performed with multiplanar reformation and 3D reconstruction. Individualized dose optimization techniques were used for this CT. 1182 images. COMPARISON: XR same day, CTA 02/14/2014. FINDINGS: CENTRAL AIRWAYS: Central airways grossly patent. Left lower lobe bronchiectasis, bronchial wall thickening, and mucous plugging. LUNGS: Very mild paraseptal emphysema. Mild alveolar opacities in the left lower lobe posteriorly. Very mild right lower lobe atelectasis. PLEURA: No pneumothorax or significant pleural effusion. HEART/PERICARDIUM: Heart within normal limits in size. No pericardial effusion. PULMONARY ARTERIES: No filling defect. AORTA/VESSELS: No thoracic aortic aneurysm or dissection flap. MEDIASTINUM/GIANNA: No pathologically enlarged lymph nodes. OSSEOUS STRUCTURES: Nondisplaced left anterolateral fourth rib fracture with adjacent soft tissue swelling of the overlying chest wall and extrapleural space. Old left sixth rib fracture. Degenerative change. Chronic T2, T3, T4, and L1 compression fractures. UPPER ABDOMEN: Unremarkable. CT/CTA Chest W/WO Contrast IMPRESSION: No evidence of pulmonary embolism. Mild left lower lobe pneumonia or pneumonitis. Acute nondisplaced fracture of the left fourth rib with trace extrapleural hematoma. Electronically Signed: Cristy Chiu MD at 13:46 EST ,
[2022-06-02 12:49] LABS: CPK Total, Creatine Kinase 91 U/L (39-308)
[2022-06-02 12:53] LABS: Lactic Acid 1.2 mmol/L (0.4-1.9)
[2022-06-02 12:54] LABS: ALB/GLOB Ratio 0.9 RATIO (0.9-2.4); AST(SGOT) 23 U/L (15-37); Alanine Aminotransfer ALT/SGPT 27 U/L (16-61); Albumin, Serum 2.9 g/dL (3.2-5.0); Alkaline Phosphatase 71 U/L (45-117); Anion Gap 6 (5-15); BUN 12 mg/dL (7-18); BUN/Creat Ratio 15.6 RATIO (10-20); Calcium,Total 8.6 mg/dL (8.5-10.1); Chloride 101 mmol/L (98-107); Creatinine, Serum 0.77 mg/dL (0.70-1.30); EST Glomerular Filtration Rate 112 mL/min (>60); Est Glom Filt Rate - Afr Amer 136 mL/min (>60); Estimated Creatinine Clearance 122.86 ml/min; Globulin 3.3 g/dL (2.2-4.2); Glucose 124 mg/dL (74-106); Lipase 70 U/L (73-393); Potassium 3.3 mmol/L (3.5-5.1); Protein, Total 6.2 g/dL (6.4-8.2); Sodium Level 135 mmol/L (136-145); Troponin-I HS 5 pg/mL (3.0-78.0)
[2022-06-02 13:03] LABS: Differential Comment SCANNED
[2022-06-02] MEDS: Acetaminophen 500 MG Tablet 1000 MG PO (13:24)
[2022-06-02 14:41] VITALS: PULSE 94; RESP 16; O2SAT 98
[2022-06-02] MEDS: Cefdinir 300 MG Capsule PO (14:49)
[2022-06-02] MEDS: Azithromycin 250 MG Tablet 500 MG PO (14:49)
[2022-06-02] MEDS: Lidocaine 5% Patch 1 PATCH TOPICAL (14:49)
--- NOTE | 2022-06-02 14:56 | ED.RN ---
discussed risks of substance abuse with pt. pt verbalizes he is going to use again. Then while reviewing sc instructions pt requests to sleep here for awhile, doesnt have anywhere to go. assisted pt with phone and numbers to call friend.
== END 2022-06-02 14:58 | disposition home or self-care (01) ==
PROVIDERS: Physician Assistant; Emergency Provider Emergency Medicine; Visit Provider Emergency Medicine
DX: J18.9 Pneumonia, unspecified organism (principal); S22.32XA Fracture of one rib, left side, initial encounter for closed fracture; D64.9 Anemia, unspecified; F17.210 Nicotine dependence, cigarettes, uncomplicated; X58.XXXA Exposure to other specified factors, initial encounter
CPT/HCPCS: 71046; 71275; 80053; 82550; 83605; 83690; 83880; 84484; 85025; 85379; 87428; 93005; 96360; 96361; 99284; J7030; Q9967; A4216

== ENCOUNTER 2022-09-05 12:50 | Emergency (ER) | payer MEDICAID, SELFPAY ==
[2022-09-05 12:51] VITALS: BP 150/130; PULSE 94; RESP 18; TEMP 36.2; O2SAT 100; BMI 24.0
[2022-09-05 13:09] VITALS: BP 104/91; PULSE 119; RESP 16; O2SAT 97; BMI 24.4
--- NOTE | 2022-09-05 13:22 | CT_ITS ---
STUDY: CT CERVICAL SPINE WITHOUT CONTRAST REASON FOR EXAM: Male, 52 years old. Pain, remote injury RADIATION DOSAGE (If Supplied By Facility): CTDIvol = ( 23.64 ) mGy, DLP = ( 476.76 ) mGycm TECHNIQUE: High resolution transaxial imaging was performed without contrast material. Sagittal and coronal images were reconstructed. Individualized dose optimization techniques were used for this CT. COMPARISON: None FINDINGS: Normal craniovertebral junction. There are degenerative changes of the anterior atlantoaxial articulation. Normal odontoid process. There is straightening of the normal cervical lordosis. Multilevel spondylosis. C2-3: Grade 1 anterolisthesis of C2 on C3 most likely secondary to the facet joint osteoarthritis and hypertrophy worse on the right side. C3-4: Marked degree of disc space narrowing with spondylosis. Uncovertebral arthrosis. Facet joint osteoarthritis and hypertrophy much worse on the right side. Mild bilateral neural foraminal stenosis. C4-5: Minimal anterolisthesis of C5 on C6. Facet joint osteoarthritis and hypertrophy worse on the right side. Uncovertebral arthrosis. Right neural foraminal stenosis. C5-6: There is fusion of the C5-C6 vertebral body. C6-7: Normal endplates. Normal disc height and morphology. Normal central canal and intervertebral neuroforamina. C7-T1: Normal endplates. Normal disc height and morphology. Normal central canal and intervertebral neuroforamina. Normal visualized soft tissue structures. CT/Spine Cervical without Contras IMPRESSION: Multilevel degenerative changes, as described above. Anterolisthesis of C2 on C3 due to facet joint osteoarthritis and hypertrophy. Electronically Signed: Luis Felipe Collier MD at 14:18 EDT ,
--- NOTE | 2022-09-05 13:22 | CT_ITS ---
STUDY: CT BRAIN WITHOUT CONTRAST REASON FOR EXAM: Male, 52 years old. left sided numbness, headache. Drug abuse. Schizophrenia. RADIATION DOSAGE (If Supplied By Facility): CTDIvol = ( 44.99 ) mGy, DLP = ( 745.49 ) mGycm TECHNIQUE: Transaxial CT imaging of the brain was performed without administration of intravenous contrast material. Individualized dose optimization techniques were used for this CT. COMPARISON: Comparison is made with prior study dated February 17, 2018. FINDINGS: Normal soft tissue structures. Normal calvarium. Normal size ventricles and extra-axial spaces for the patient''s age. Normal white matter tracts of the cerebral hemispheres. Normal basal ganglia and thalami. Normal brainstem. Normal cerebellum. There is no intracranial hemorrhage. There are no findings of an acute ischemic infarction. Normal visualized paranasal sinuses. CT/Brain/Head without Contrast IMPRESSION: Normal unenhanced CT scan of the brain. Electronically Signed: Luis Felipe Collier MD at 14:14 EDT ,
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
[2022-09-05] MEDS: 0.9% Normal Saline 1,000 ML 999 ML IV (13:37)
[2022-09-05 13:50] LABS: Absolute Lymphocyte Count 1.86 X10^3/uL (0.83-4.51); Absolute Neutrophil Count 3.1 X10^3/uL (2.0-7.7); Basophil% 1.7 % (0-1); Eosinophil# 0.35 X10^3/uL; Eosinophils% 5.9 % (0-5); Lymphocyte # 1.86 X10^3/ul (0.83-4.51); Lymphocyte % 31.4 % (19-41); Mean Corp Hgb Conc 32.6 g/dL (32-36); Mean Corpuscular Hgb 31.1 pg (27.0-32.0); Mean Corpuscular Volume 95.6 fL (80-94); Mean Platelet Vol. 8.6 fl (6.2-12.0); Monocyte# 0.47 X10^3/uL; Monocyte% 7.9 % (0-10); NRBC Flagged by Analyzer 0 % (0-5); Neutrophil # 3.12 X10^3/uL (2.7-7.7); Neutrophil % 52.8 % (47-70); Platelet Count 280 K/mm3 (150-450); RBC Distribution Width CV 13.9 % (11.6-14.6); RBC Distribution Width SD 48.7 fl (35.1-43.9); White Blood Count 5.9 K/mm3 (4.4-11.0)
[2022-09-05 14:07] LABS: Anion Gap 6 (5-15); BUN 10 mg/dL (7-18); BUN/Creat Ratio 8.4 RATIO (10-20); Calcium,Total 9.3 mg/dL (8.5-10.1); Chloride 107 mmol/L (98-107); Creatinine, Serum 1.19 mg/dL (0.70-1.30); EST Glomerular Filtration Rate 68 mL/min (>60); Est Glom Filt Rate - Afr Amer 82 mL/min (>60); Estimated Creatinine Clearance 77.34 ml/min; Glucose 131 mg/dL (74-106); Potassium 3.6 mmol/L (3.5-5.1); Sodium Level 141 mmol/L (136-145)
[2022-09-05 15:20] VITALS: PULSE 83; RESP 15
[2022-09-05 16:17] VITALS: RESP 18
== END 2022-09-05 16:20 | disposition home or self-care (01) ==
PROVIDERS: Emergency Provider Emergency Medicine; Visit Provider Emergency Medicine
DX: M46.82 Other specified inflammatory spondylopathies, cervical region (principal); F17.210 Nicotine dependence, cigarettes, uncomplicated; Z59.00 Homelessness unspecified; R51.9 Headache, unspecified; G89.29 Other chronic pain
CPT/HCPCS: 70450; 72125; 80048; 85025; 96360; 99284; J7030; A4216